=== PATIENT | male | born 1955 | race Caucasian/White ===

== ENCOUNTER 2023-03-27 17:27 | Inpatient (IN) | payer OTHER, SELFPAY ==
[2023-03-27] VITALS (34 sets, daily range): BP systolic 105–138; BP diastolic 48–80; PULSE 67–102; RESP 12–33; TEMP 36.2–36.8; O2SAT 86–100
--- NOTE | 2023-03-27 17:30 | RT.EKG_ITS ---
APPROVED REPORT Exam: Resting ECG Reason for Exam: SOB Patient Location: E HR:84 bpm ECG Measurements Heart Rate 84 AXIS WI 160 P 115 QRSd 87 QRS 88 QT 378 T 67 QTc 447 Conclusion Sinus rhythm...normal P axis, V-rate 60- 99 Repol abnrm suggests ischemia, lateral leads...ST dep, T neg, I aVL V5 V6 Narrow complex normal sinus rhythm at a rate of 84. Normal axis. Intervals within normal limits. N o acute ST segment abnormalities. Artifact in lead III. No prior for comparison. No acute injury p attern.
--- NOTE | 2023-03-27 17:51 | W.ED.GENAD ---
HPI General Stated Complaint: SOB REJI: 3 Date/Time Provider Initiated Documentation: 03/27/23 17:38. HPI Narrative: 68 year-old male presents to ED today by POV/ambulating with a chief complaint of weakness, near syncope, chronic hematuria in known stage IV bladder CA patient with onset of about one week- questions cardiac left arm pain for the past week. [facility]. and they recommended ED evaluation. Quality described as very weak, has needed transfusions when feeling similar in the past, no radiation to overt fever, cough, shortness of breath, does endorse zero appetite without vomiting. Severity is described as severe. Palliating factors include nothing specific attempted. Provoking factors include nothing specific. Events leading up to the incident/Associated Symptoms: patient is in palliative care, is trying to pursue JAK2 inhibitor treatment. Patient not anticoagulated. Related Data Home Medications Medication Instructions Recorded Confirmed benazepril 10 mg tablet 1 tab PO DAILY #90 tab-caps 08/01/13 fluticasone 250 mcg-salmeterol 50 1 puff inhalation BID 08/01/13 mcg/dose blistr powdr for inhalation (Advair Diskus) glipizide 10 mg tablet, extended 1 tab PO BID #180 tab-caps 08/01/13 release 24 hr (Glucotrol XL) niacin 500 mg tablet,extended 1 tab PO HS #90 tab-caps 08/01/13 release 24 hr (Niaspan) simvastatin 10 mg tablet (Zocor) 1 tab PO DAILY #90 tab-caps 08/01/13 tiotropium bromide 18 mcg capsule 18 mcg inhalation DAILY 08/01/13 with inhalation device (Spiriva with HandiHaler) aspirin 325 mg tablet 1 tab PO DAILY #90 tab-caps 08/27/13 ipratropium 20 mcg-albuterol 100 1 puff inhalation QID #1 puff 10/31/13 mcg/actuation mist for inhalation (Combivent Respimat) metformin 850 mg tablet 1 - 2 tab PO DIRECTED #270 12/18/13 (Glucophage) tab-caps sitagliptin phosphate 100 mg 100 mg PO DAILY #30 tabs 02/10/14 tablet (Januvia) metoprolol tartrate 50 mg tablet 0.5 tab PO BID #90 tab-caps 04/23/14 (Lopressor) Allergies Allergy/AdvReac Type Severity Reaction Status Date / Time bupropion Allergy Severe Anaphylaxsi Unverified 08/01/13 15:38 s Review of Systems All systems reviewed & are unremarkable except as noted in HPI and below PFSH All Active Problems (Updated 03/27/23 @ 21:51 by Jonathon Henry) Sepsis syndrome (Acute) Type 2 diabetes mellitus (Chronic) Bladder cancer (Chronic) Hyperlipidemia (Chronic 08/01/12) Essential hypertension (Chronic 01/30/13) Chronic obstructive lung disease (Chronic 01/31/13) Medical History Diverticulitis of colon (08/01/12) Acute pancreatitis (01/31/13) Acute appendicitis (01/31/13) Surgical History Appendectomy Social History Smoking/Tobacco Use Status: Never Smoking risk assessment performed?: Yes Alcohol Intake: current Alcohol Intake frequency: holidays/special occasions only Exam Narrative Exam Narrative: GENERAL APPEARANCE: Malnourished, extremely frail & emaciated, non-toxic, awake and alert, atraumatic, no acute distress. SKIN: Warm, pink, dry, intact, without rashes/lesions/ulcerations. HEAD: Normocephalic, atraumatic, normal hair distribution for gender/age. EYES: Pupils PERRLA, EOMs intact without nystagmus, normal conjunctiva, no exudates on lids/lashes. ENT: Nares patent, no circumoral cyanosis, no facial swelling NECK: Supple, trachea midline, painless cervical ROM. LUNGS/CHEST: Lungs CTA bilaterally- no rhonchi/no rales, coarse lung sounds diffusely, non-labored respirations, normal A/P diameter, symmetrical expansion, no chest wall deformity HEART (CV/PV): Regular rate and rhythm without murmur, no peripheral edema, no JVD. ABDOMEN: Soft, non-distended, no guarding, diffuse mild tenderness- states baseline. MSK: Normal ROM, no swelling/deformity to bilateral UEs or LEs, moving all extremities without weakness, no cyanosis, spine midline without tenderness, normal curvature. NEURO: Mental Status AAOx4 - alert to person, place, time, events No facial droop, no forehead involvement. Motor: No focal weakness - strength 5/5 in bilateral UEs and LEs, proximal and distal, symmetric. Sensory: sensation intact to light touch globally. Gait normal: patient ambulated without ataxia into ED room. PSYCH: euthymic, cooperative, pleasant, appropriate speech Course Vital Signs Vital signs: Vital Signs Pulse 91 H 03/27/23 17:35 Respiratory Rate 28 H 03/27/23 17:35 Blood Pressure 138/78 03/27/23 17:35 Pulse Oximetry 96 03/27/23 17:35 Pulse 91 H 03/27/23 17:35 Respiratory Rate 28 H 03/27/23 17:35 Blood Pressure 138/78 03/27/23 17:35 Blood Pressure Position Sitting 03/27/23 17:35 Pulse Oximetry 96 03/27/23 17:35 Oxygen Delivery Method Room Air 03/27/23 17:35 Oxygen Flow Rate 0 03/27/23 17:35 Pain Level 0 03/27/23 17:35 Medical Decision Making This dictation utilizes [id number] dictation software and may contain unedited grammatical errors. 68 y/o M presents to ED today with a chief complaint of feeling very weak, known stage IV bladder CA, having hematuria, questions need for transfusion. Patient is engaged in palliative care with bladder CA with mets, [facility], feels intensely weak, questions if he is having a heart attack with one week of intermittent L arm pain. Patients' medical history: COPD, bladder CA w/ mets to lung, bone, HTN, t2DM. Family and social history: former heavy smoker, lives with family. Pertinent exam findings / vital signs include frail and emaciated, coarse lung sounds diffusely, baseline abdominal tenderness. Differential / pathologies of concern include sepsis, anemia, pneumonia, UTI, malnutrition. Diagnostic studies of: -CBC, CMP, PT/INR, VBG, lipase, lactate, CK, Trop I, Mg++, PT/PTT, UA, Blood Cx's, CXR. -CBC shows leukocytosis 35 - sepsis -Lactate 4.9, likely sepsis - 3hr lactate value pending at admission. -CMP shows mild hyperkalemia, no EKG changes, glucose 299, chronic elevated LFTs -Lipase neg -CK neg -Trop I neg, reliable onset, no ACS -Coags unremarkable CXR shows no large focal opacity on my read. Interventions of: -500mL IV LR on arrival, switched to 1L NS, IBW sepsis bolus, giving 2gm ceftriaxone, 1.5gm vancomycin for empiric coverage, [facility] - [place] refuses admission or transfer ED to ED even though they may have capacity tomorrow. Refuse waitlisting any patients. -Giving DuoNeb starting 2L O2 by [place] for mild hypoxia in the setting of mild cough and chronic COPD -repleted 2gm Magnesium IV ED Course/Assessment/Plan: 68-year-old male patient was recommended to come to our ER for evaluation, not the [place] ER per phone consult with their transfer service. Meets sepsis criteria, unknown source at this time, UA shows no nitrites or leuk esterase and he does have active bladder cancer, he is trying to seek treatment with Omero 2 inhibitors with our oncology service at some point in the near future. It is possible that he has pneumonia as source, he did display some mild hypoxia in the setting of chronic COPD at 87 on room air, has an active cough, chest x-ray shows no large focal opacity but the read read has not read at time of admission. I did discuss with Dr. Henry for admission here for sepsis which was excepted, the patient displayed no hypotension here in the department and received a breathing treatment, he received ceftriaxone empirically when urine was suspected source of infection as well as vancomycin, this will likely be transition to cefepime inpatient, he had some mild hypomagnesemia which was repleted by IV, he was given a breathing treatment. Patient states he is a FULL CODE. Admission accepted 2144 to [facility] Med-Surg. Disposition of Sepsis. Patient verbalized understanding of the plan and return to ED criteria and engaged in shared decision making. Medical Records Medical records reviewed: Yes I reviewed the patient's medical records. Imaging Data Radiologic Study: Imaging: X-Ray My impression: no focal opacity Radiologist's impression: Exam: XR Chest Exam date and time: 03/27/2023 8:51 PM Age: 68 years old Clinical indication: Other: Sepsis TECHNIQUE: Imaging protocol: Radiologic exam of the chest. Views: 1 view. COMPARISON: No relevant prior studies available. FINDINGS: Lungs: Lungs are hyperinflated compatible with COPD/emphysema. No focal airspace opacity. Pleural spaces: Unremarkable. No pleural effusion. No pneumothorax. Heart/Mediastinum: Unremarkable. No cardiomegaly. Bones/joints: Unremarkable. IMPRESSION: Lungs are hyperinflated compatible with COPD/emphysema. No focal airspace opacity. Dictated and Authenticated by: Sheldon Carvajal MD. Lab Data Lab results reviewed: Yes I reviewed the patient's lab results. Labs: 03/27/23 20:20 Urine - Reflex from Ua Urine Culture - Pending 03/27/23 18:54 Blood Blood Culture - Pending 03/27/23 18:46 Blood Blood Culture - Pending Laboratory Tests Range/Units 03/27/23 03/27/23 18:05 20:20 WBC (4.4-10.8) 10^3/uL 35.49 H* RBC (4.36-5.78) 10^6/uL 3.61 L Hgb (13.5-17.5) g/dL 8.7 L Hct (40.0-50.0) % 26.8 L MCV (80-95) fL 74 L MCH (27.0-33.0) pg 24.1 L MCHC (32.0-36.0) % 32.5 RDW (11.8-14.1) % 21.7 H Plt Count (130-400) 10^3/uL 498 H MPV (8.0-11.0) fL 8.0 Immature Gran % 0.0 Neutrophils % 95.0 Lymphocytes % 2.0 Monocytes % 3.0 Eosinophils % 0.0 Basophils % 0.0 Nucleated RBC % (0.0-0.3) % 0.0 Absolute Neutrophils (1.2-6.7) 10^3/uL 33.72 H Absolute Lymphocytes (1.2-3.4) 10^3/uL 0.71 L Absolute Monocytes (0.1-0.8) 10^3/uL 1.06 H Absolute Eosinophils (0.0-0.7) 10^3/uL 0.00 Absolute Basophils (0.0-0.2) 10^3/uL 0.00 RBC Morphology See Below Hypochromasia 2+ Poikilocytosis 1+ Anisocytosis 1+ Microcytosis 1+ PT (9.1-11.1) sec 11.5 H INR (0.9-1.1) 1.2 H APTT (23.6-32.8) sec 27.4 VBG Lactate (0.6-1.4) mmol/L 4.3 H* Sodium (136-145) mmol/L 128 L Potassium (3.5-5.1) mmol/L 5.2 H Chloride (98-107) mmol/L 92 L Carbon Dioxide (21.0-32.0) mmol/L 24.4 Anion Gap (3-11) mmol/L 11.6 H BUN (7-18) mg/dL 18 Creatinine (0.70-1.30) mg/dL 1.0 Est GFR (CKD-EPI 2020) (mL/min/1.73m2) 82.49 Glucose (74-106) mg/dL 299 H Calcium (8.5-10.1) mg/dL 9.4 Magnesium (1.8-2.4) mg/dL 1.4 L Total Bilirubin (0.2-1.0) mg/dL 0.3 AST (15-37) U/L 14 L ALT (16-63) U/L 18 Alkaline Phosphatase (46-116) U/L 185 H Creatine Kinase (39-308) U/L 44 Troponin I (<or=60) ng/L < 50 Total Protein (6.4-8.2) g/dL 7.4 Albumin (3.4-5.0) g/dL 3.1 L Lipase (16-77) U/L < 10 L Procalcitonin ng/mL < 0.1 Urine Color (Yellow) Red Urine Clarity (Clear) Turbid Urine pH (5-8) 6.5 Ur Specific [place] (1.005-1.025) 1.025 Urine Protein (Negative) mg/dL >=300 H Urine Ketones (Negative) mg/dL Negative Urine Blood (Negative) Large H Urine Nitrite (Negative) Negative Urine Bilirubin (Negative) Negative Urine Urobilinogen (Up to 0.2) mg/dL 0.2 Ur Leukocyte Esterase (Negative) Negative Urine RBC (0-2) HPF >50 H Urine WBC Not Applicable Ur Epithelial Cells Not Applicable Urine Crystals Not Applicable Urine Bacteria Not Applicable Urine Mucus Not Applicable Ur Culture Indicated? Yes Urine Glucose (Negative) mg/dL 100 H Quality:SDOH Health Related Social Needs: No Data to Display Discharge Plan Disposition Patient Disposition: Admit to [facility] Condition: Stable Discharge Details Clinical Impression: Sepsis Primary Care Provider: Lizet Monsalve ED Provider: Benoit Robbins Home Meds and New Rx's Prescriptions: No Action fluticasone propion-salmeterol [Advair Diskus] 1 EACH blister with device 1 puff Inhalation BID tiotropium bromide [Spiriva with HandiHaler] 18 MCG capsule, w/inhalation device 18 mcg Inhalation DAILY glipizide [Glucotrol XL] 10 MG tablet extended release 24hr 1 tab PO BID Qty: 180 simvastatin [Zocor] 10 MG tablet 1 tab PO DAILY Qty: 90 niacin [Niaspan Extended-Release] 500 MG tablet extended release 24 hr 1 tab PO HS Qty: 90 benazepril 10 MG tablet 1 tab PO DAILY Qty: 90 aspirin 325 MG tablet 1 tab PO DAILY Qty: 90 ipratropium-albuterol [Combivent Respimat] 4 GM mist 1 puff Inhalation QID Qty: 1 metformin [Glucophage] 850 MG tablet 1 - 2 tab PO DIRECTED Qty: 270 Rx Instructions: 1 TAB QAM; 2 TABS QPM sitagliptin phosphate [Januvia] 100 MG tablet 100 mg PO DAILY Qty: 30 metoprolol tartrate [Lopressor] 50 MG tablet 0.5 tab PO BID Qty: 90
[2023-03-27 18:12] LABS: Lactate 4.3 mmol/L (0.6-1.4)
[2023-03-27 18:14] LABS: Abs Immature Grans 0.52 10^3/uL (0.0-0.06); HCT 26.8 % (40.0-50.0); HGB 8.7 g/dL (13.5-17.5); MCH 24.1 pg (27.0-33.0); MCHC 32.5 % (32.0-36.0); MCV 74 fL (80-95); Platelet Count 498 10^3/uL (130-400); RBC 3.61 10^6/uL (4.36-5.78); RDW 21.7 % (11.8-14.1); RDW-SD 58.8 fL
[2023-03-27] MEDS: Lactated Ringers 1,000 ML 1000 ML IV (18:15)
[2023-03-27 18:16] LABS: WBC 35.49 10^3/uL (4.4-10.8)
[2023-03-27 18:24] LABS: INR 1.2 (0.9-1.1); PTT Activated 27.4 sec (23.6-32.8); Prothrombin Time 11.5 sec (9.1-11.1)
[2023-03-27 18:28] LABS: ALT 18 U/L (16-63); AST 14 U/L (15-37); Albumin 3.1 g/dL (3.4-5.0); Alkaline Phosphatase 185 U/L (46-116); Anion Gap 11.6 mmol/L (3-11); BUN 18 mg/dL (7-18); Bilirubin, Total 0.3 mg/dL (0.2-1.0); CO2 24.4 mmol/L (21.0-32.0); Calcium 9.4 mg/dL (8.5-10.1); Chloride 92 mmol/L (98-107); Estimated GFR 82.49 (mL/min/1.73m2); Glucose 299 mg/dL (74-106); Magnesium 1.4 mg/dL (1.8-2.4); Potassium 5.2 mmol/L (3.5-5.1); Sodium 128 mmol/L (136-145); Total Protein 7.4 g/dL (6.4-8.2)
[2023-03-27 18:30] LABS: Creatine Kinase 44 U/L (39-308); Lipase < 10 U/L (16-77); Troponin I < 50 ng/L (<or=60)
[2023-03-27 18:31] LABS: Absolute Lymphocyte Count 0.71 10^3/uL (1.2-3.4); Absolute Monocyte Count 1.06 10^3/uL (0.1-0.8); Absolute Neutrophil Count 33.72 10^3/uL (1.2-6.7)
[2023-03-27 18:32] LABS: Diff Comment Diff Reviewed; Hypochromasia 2+; Microcytosis 1+
[2023-03-27 18:33] LABS: Anisocytosis 1+
[2023-03-27 18:34] LABS: Poikilocytes 1+
[2023-03-27] MEDS: cefTRIAXone 2 GM/50 ML BAG IVPB (18:53)
[2023-03-27] MEDS: Normal Saline 1,000 ML 1000 ML IV (19:00)
[2023-03-27] MEDS: MAGNESIUM SULFATE 2 GM/50 ML BAG IVPB (19:27)
[2023-03-27] MEDS: VANCOMYCIN 1,500 MG in Normal Saline 250 ML 166.6666 MG IVPB (19:39)
--- NOTE | 2023-03-27 20:00 | DI.RAD_ITS ---
Exam(s) XR PORTABLE CHEST AP EXAM: XR PORTABLE CHEST AP CLINICAL HISTORY: sepsis. TECHNIQUE: 2D digital imaging was performed. COMPARISON: CR CHEST 2 VIEWS PA,LAT from 05/20/2010 FINDINGS: Single AP portable view. Heart size is upper normal. The mediastinum is not widened. Bilateral hyperinflation-emphysematous changes. No focal infiltrates in the left lung. However, the re is a concerning nodular infiltrate in the right lung base now evident. This measures approximatel y 1 point 5-2 cm size. No pleural effusions. IMPRESSION: COPD. Spiculated nodular infiltrate noted in the right lung base. CT scan follow-up recommended to rule out malignancy. First read by [facility] Final report and recommendation for CT scan called by myself to ER physician 03/28/2023 8:30 a.m. DATA REPOSITORY: RADIATION DOSE DELIVERED:
[2023-03-27] MEDS: Albuterol/Ipratropium 3 ML UPD VIAL UPD (20:23)
[2023-03-27 20:38] LABS: Bilirubin Negative (Negative); Blood Large (Negative); Clarity Turbid (Clear); Glucose 100 mg/dL (Negative); Ketones Negative (Negative); Leukocyte Esterase Negative (Negative); Nitrite Negative (Negative); Specific Gravity 1.025 (1.005-1.025); Urobilinogen 0.2 mg/dL (Up to 0.2); pH 6.5 (5-8)
[2023-03-27 20:48] LABS: C & S Indicated? Yes; RBC >50 HPF (0-2)
[2023-03-27 20:48] LABS: Procalcitonin < 0.1 ng/mL
--- NOTE | 2023-03-27 21:26 | DI.VRAD_ITS ---
PROCEDURE INFORMATION: Exam: XR Chest Exam date and time: 03/27/2023 8:51 PM Age: 68 years old Clinical indication: Other: Sepsis TECHNIQUE: Imaging protocol: Radiologic exam of the chest. Views: 1 view. COMPARISON: No relevant prior studies available. FINDINGS: Lungs: Lungs are hyperinflated compatible with COPD/emphysema. No focal airspace opacity. Pleural spaces: Unremarkable. No pleural effusion. No pneumothorax. Heart/Mediastinum: Unremarkable. No cardiomegaly. Bones/joints: Unremarkable. IMPRESSION: Lungs are hyperinflated compatible with COPD/emphysema. No focal airspace opacity. Dictated and Authenticated by: Sheldon Carvajal MD. Ordering:HERNÁN Laboy MD
--- NOTE | 2023-03-27 21:42 | W.PM.HP.N ---
Date of service: 03/27/23 Time of Service: 21:42 Assessment and Plan Assessment and plan (1) Sepsis syndrome: Start date: 03/27/23 Status: Acute Assessment and plan: This is a 71-year-old gentleman who has had progressive weight loss and decreased intake with severe anorexia and cachexia pending reevaluation of treatment of his bladder cancer which is now metastasized to his lungs. He presents with sepsis syndrome though has had no fever or hypotension he did have severe leukocytosis with lactic acidosis and tachycardia with tachypnea. Probable source of infection would be urinary at this time and is on appropriate antibiotic therapy. He also has been covered for possibility of pneumonia with severe COPD and emphysema. He will receive IV fluid resuscitation with ICU care until stabilized. If MAP falls below 65 we will consider pressor agents. Prognosis is poor but he remains a full code. Palliative care consultation has been placed. (2) Bladder cancer: Status: Chronic Assessment and plan: Stage IV now being metastatic to lung. Patient is considering treatment with local oncology prognosis is poor. He does have chronic hematuria and pain and may have a UTI as cause of sepsis syndrome and presentation cultures have been obtained. This Qualifiers: Bladder location: unspecified site Qualified Code(s): C67.9 - Malignant neoplasm of bladder, unspecified (3) Hyponatremia: Start date: 03/27/23 Status: Acute Assessment and plan: Mild with patient replaced on IV normal saline for hydration as well. He appears dry though his creatinine is normal but this may also be secondary to low muscle mass. (4) Hypomagnesemia: Start date: 03/27/23 Status: Acute Assessment and plan: Patient was given IV magnesium in the ED and will follow-up daily magnesium level with repletion as indicated (5) Microcytic anemia: Status: Chronic Assessment and plan: Patient has acute anemia but not severe though this will be followed up with hydration and if worsening with hematocrit below 20 or hemoglobin below 7, consider transfusion the patient currently on supplements. Patient has not been typed and screened as of yet with this appearing more chronic progressive with his disease processes. Patient persists with iron deficiency with low iron levels despite supplementation but other screening labs were hide to normal. Consider increasing iron supplementation if patient can tolerate oral therapy but has had anorexia. (6) Type 2 diabetes mellitus: Status: Chronic Assessment and plan: Patient will have his outpatient medical therapy help with inpatient before meals and bedtime glucometer measurements and covered with short acting insulin on sliding scale while hospitalized. 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 Qualifiers: COPD type: emphysema Emphysema type: other Qualified Code(s): J43.8 - Other emphysema (8) Essential hypertension: Status: Chronic Assessment and plan: Hold outpatient therapy for now with patient having hypotension and tachycardia as well as being hydrated. Reinitiate as appropriate (9) Hyperlipidemia: Status: Chronic Assessment and plan: Continue statin therapy while hospitalized. Qualifiers: Hyperlipidemia type: mixed hyperlipidemia Qualified Code(s): E78.2 - Mixed hyperlipidemia History of Present Illness History of Present Illness Chief Complaint: Weakness and near syncope with worsening hematuria Narrative: This is a 68-year-old [facility] with [facility] the patient for acute evaluation. He was having weakness with near syncope and gross hematuria which has been persistent since the fall 2022 when he was diagnosed with bladder cancer which now is metastatic to the lung. He has lost almost 60 pounds in the last several months with 15 to 20 pounds more recently. He feels very weak and lives with his daughter now because he cannot do this on his own. He has a smoker quitting in December 2022 after his diagnosis but now returned to smoking. He does have chronic respiratory symptoms which are treated with respiratory inhalers. He is not having increased cough or chest discomfort though he is having left arm pain which was of some concern over the last week as well was cardiac. The ED evaluation did not show any ischemic cardiac processes. The patient does have chronic anemia and has had to have transfusion past. He denies any fever or hemoptysis and has had no GI complaints. Mostly has his urinary complaints with burning and gross hematuria. He denies any new back pain. In the ED the patient was found to have severe leukocytosis also thrombocytosis with tachycardia and tachypnea as well as lactic acidosis but no fever. He also had hyperglycemia with a history of diabetes but had no other metabolic acidosis. VBG showed low normal pCO2. Patient remains a full code and is trying to pursue JAK2 inhibitor treatment with oncology locally. Prognosis appears to be poor the patient is very cachectic appearing and weak. He may wish to rediscuss his CODE STATUS with palliative care which is in consult for later this week but may be able to be accomplished during his hospital stay. For now he is a full code. Review of Systems Narrative: 13 point review of systems otherwise unrevealing or stable. Patient is on a steady decline since his new diagnosis of bladder cancer and now with pulmonary metastases. PFSH All Active Problems (Updated 03/28/23 @ 02:51 by Jonathon Henry) Hypomagnesemia (Acute) Hyponatremia (Acute) Microcytic anemia (Chronic) Sepsis syndrome (Acute) Type 2 diabetes mellitus (Chronic) Bladder cancer (Chronic) Hyperlipidemia (Chronic 08/01/12) Essential hypertension (Chronic 01/30/13) Chronic obstructive lung disease (Chronic 01/31/13) Medical History Diverticulitis of colon (08/01/12) Acute pancreatitis (01/31/13) Acute appendicitis (01/31/13) Surgical History Appendectomy Social History (Updated 03/28/23 @ 02:38 by Jonathon Henry) Smoking/Tobacco Use Status: Current every day Quit status: has quit before Smoking risk assessment performed?: Yes Alcohol Intake: current Alcohol Intake frequency: holidays/special occasions only Housing: house Meds Allergies and Home Medications Allergies Allergy/AdvReac Type Severity Reaction Status Date / Time bupropion Allergy Severe Anaphylaxsi Unverified 03/27/23 22:24 s Home Medications Medication Instructions Recorded Confirmed Type fluticasone 250 mcg-salmeterol 50 1 puff inhalation BID 08/01/13 03/27/23 History mcg/dose blistr powdr for inhalation (Advair Diskus) simvastatin 10 mg tablet (Zocor) 40 mg PO DAILY #90 tab-caps 08/01/13 03/27/23 History tiotropium bromide 18 mcg capsule 18 mcg inhalation DAILY 08/01/13 03/27/23 History with inhalation device (Spiriva with HandiHaler) aspirin 325 mg tablet 1 tab PO DAILY #90 tab-caps 08/27/13 03/27/23 History ipratropium 20 mcg-albuterol 100 1 puff inhalation QID #1 puff 10/31/13 03/27/23 History mcg/actuation mist for inhalation (Combivent Respimat) metformin 850 mg tablet 1,000 mg PO BID #270 tab-caps 12/18/13 03/27/23 History (Glucophage) metoprolol tartrate 50 mg tablet 25 mg PO BID #90 tab-caps 04/23/14 03/27/23 History (Lopressor) amlodipine 5 mg tablet 5 mg PO DAILY 03/27/23 03/27/23 History docusate sodium 100 mg capsule 100 mg PO BID PRN 03/27/23 03/27/23 History (Colace) doxepin 3 mg tablet 3 mg PO QHS 03/27/23 03/27/23 History ferrous sulfate 325 mg (65 mg 325 mg PO .COMPLEX 03/27/23 03/27/23 History iron) tablet (Feosol) insulin aspart U-100 .ROUTE 03/27/23 History melatonin 3 mg tablet 3 mg PO HS PRN 03/27/23 03/27/23 History methylphenidate HCl 5 mg tablet 5 mg PO DAILY 03/27/23 03/27/23 History mirabegron 25 mg tablet,extended 25 mg PO DAILY 03/27/23 03/27/23 History release 24 hr cdnhpmxtcoig-iudvegnc-yljtle 1 tab PO DAILY AM 03/27/23 03/27/23 History nicotine 14 mg/24 hr daily 1 patch transdermal DAILY 03/27/23 03/27/23 History transdermal patch oxycodone 5 mg tablet 5 mg PO Q6H PRN 03/27/23 03/27/23 History pantoprazole 20 mg tablet,delayed 20 mg PO QHS 03/27/23 03/27/23 History release (Protonix) tamsulosin 0.4 mg PO .QD 03/27/23 03/27/23 History Exam Narrative Exam Narrative: General: Patient appears cachectic and older than stated age, he is soft-spoken but able to carry on normal conversation. He is alert and oriented x 3. He is in moderate distress from his weakness and discomfort. HEENT: Normocephalic, eyes with pupils equal react light symmetrically, extraocular movement intact and sclera anicteric. Patient with coarsened features. Oropharynx with dry mucosa and patient is edentulous. Neck: Supple without JVD. Back: Kyphotic with prominent ribs and vertebral bones evident with patient's cachexia. No CVA tenderness. Lungs: Bronchovesicular breath sounds diffusely with marked decreased aeration diffusely with no expiratory rales or rhonchi with poor air. No increased expiratory phase or expiratory wheeze with poor air movement. Heart: Tachycardic rate with regular rhythm. No appreciable murmurs or gallops. Abdomen: Scaphoid contour with no palpable hepatosplenomegaly. No tenderness or guarding. Bowel sounds are decreased with active in all quadrants. Genitalia/rectal: Exam deferred. Extremities: Without clubbing, cyanosis or pitting edema. Fair capillary refill. Diffuse muscle wasting. Joints with osteoarthritic changes. Skin: Pale, warm and dry with decreased turgor. Rough texture and actinic changes over sun exposed areas. Neuro: Cranial nerves II through XII grossly intact, no focalizing motor deficits no the patient appears extremely weak diffusely from his decreased intake and cachexia. No tremor. Psych: Flat affect and depressed mood. Slow monotonous tone to voice. No abnormal thought processes. Remote and recent memory grossly intact. Results Imaging Imaging Studies: Exam: XR Chest Exam date and time: 03/27/2023 8:51 PM Age: 68 years old Clinical indication: Other: Sepsis TECHNIQUE: Imaging protocol: Radiologic exam of the chest. Views: 1 view. COMPARISON: No relevant prior studies available. FINDINGS: Lungs: Lungs are hyperinflated compatible with COPD/emphysema. No focal airspace opacity. Pleural spaces: Unremarkable. No pleural effusion. No pneumothorax. Heart/Mediastinum: Unremarkable. No cardiomegaly. Bones/joints: Unremarkable. IMPRESSION: Lungs are hyperinflated compatible with COPD/emphysema. No focal airspace opacity. Labs 03/27/23 18:05 03/27/23 18:05 Labs: Laboratory Results - last 24 hr 03/27/23 03/27/23 18:05 20:20 WBC 35.49 H* RBC 3.61 L Hgb 8.7 L Hct 26.8 L MCV 74 L MCH 24.1 L MCHC 32.5 RDW 21.7 H Plt Count 498 H MPV 8.0 Immature Gran % 0.0 Neutrophils % 95.0 Lymphocytes % 2.0 Monocytes % 3.0 Eosinophils % 0.0 Basophils % 0.0 Nucleated RBC % 0.0 Absolute Neutrophils 33.72 H Absolute Lymphocytes 0.71 L Absolute Monocytes 1.06 H Absolute Eosinophils 0.00 Absolute Basophils 0.00 RBC Morphology See Below Hypochromasia 2+ Poikilocytosis 1+ Anisocytosis 1+ Microcytosis 1+ PT 11.5 H INR 1.2 H APTT 27.4 VBG Lactate 4.3 H* Sodium 128 L Potassium 5.2 H Chloride 92 L Carbon Dioxide 24.4 Anion Gap 11.6 H BUN 18 Creatinine 1.0 Est GFR (CKD-EPI 2020) 82.49 Glucose 299 H Calcium 9.4 Magnesium 1.4 L Total Bilirubin 0.3 AST 14 L ALT 18 Alkaline Phosphatase 185 H Creatine Kinase 44 Troponin I < 50 Total Protein 7.4 Albumin 3.1 L Lipase < 10 L Procalcitonin < 0.1 Urine Color Red Urine Clarity Turbid Urine pH 6.5 Ur Specific [place] 1.025 Urine Protein >=300 H Urine Ketones Negative Urine Blood Large H Urine Nitrite Negative Urine Bilirubin Negative Urine Urobilinogen 0.2 Ur Leukocyte Esterase Negative Urine RBC >50 H Urine WBC Not Applicable Ur Epithelial Cells Not Applicable Urine Crystals Not Applicable Urine Bacteria Not Applicable Urine Mucus Not Applicable Ur Culture Indicated? Yes Urine Glucose 100 H Last Vital Signs Temp 36.8 C 03/27/23 18:31 Pulse 95 H 03/27/23 18:31 Resp 22 03/27/23 18:31 BP 133/80 03/27/23 18:31 Pulse Ox 98 03/27/23 18:31 Time Spent Time spent with Patient: >75 minutes Time was spent: preparing to see the patient(eg.review tests), obtaining and/or reviewing separately otained hiistory, ordering medications,tests, procedures, referring, communicating with other health pediatric acute care unit nurse, indepentently interpreting results, counseling the patient and care coordination
[2023-03-27 22:54] LABS: BE (Venous) 2 mmol/L (-2-3); HCO3 (Venous) 27 mmol/L (23-28); O2 Sat (Venous) 54 %; TCO2 (Venous) 26 mmol/L (24-29); pCO2 (Venous) 42 mmHg (41-51); pH (Venous) 7.41 (7.31-7.41); pO2 (Venous) 28 mmHg
[2023-03-27 22:56] LABS: Lactate 1.3 mmol/L (0.6-1.4)
--- NOTE | 2023-03-27 23:21 | W.PCEDHO ---
Registration Status: REG ER Primary Language: Preferred Language: Slovenian ED Information & Data Chief Complaint SOB 03/27/23 18:35 Chief Complaint SOB 03/27/23 17:51 Triage Note Pt @ [facility], has bladder 03/27/23 17:35 cancer and has gross bloody urine- has needed blood transfusions in the past for them (last one 1 month ago) , feels weak/SOB and called them- referred here for further workup. Denies chest pain Medical / Surgical History (Last Reviewed 03/27/23 @ 21:48 by Jonathon Henry) Diverticulitis of colon (08/01/12) Acute pancreatitis (01/31/13) Acute appendicitis (01/31/13) (Last Reviewed 03/27/23 @ 21:48 by Jonathon Henry) Appendectomy Most Recent Vital Signs Temperature 36.8 C 03/27/23 18:31 Temperature Source Oral 03/27/23 18:31 Pulse 69 03/27/23 21:45 Pulse 90 03/27/23 21:50 Respiratory Rate 25 H 03/27/23 21:50 Respiratory Effort Normal, Non-Labored 03/27/23 18:35 Respiratory Depth Normal 03/27/23 18:35 Respiratory Pattern Normal 03/27/23 18:35 Blood Pressure 118/57 L 03/27/23 21:45 Blood Pressure Mean 75 03/27/23 21:45 Blood Pressure Position Sitting 03/27/23 17:35 Pulse Oximetry 92 03/27/23 21:50 Oxygen Delivery Method Room Air 03/27/23 18:31 Oxygen Flow Rate 0 03/27/23 18:31 Pain Level 0 03/27/23 17:35 Allergies bupropion Allergy (Severe, Unverified 03/27/23 22:24) Anaphylaxsis IV IV Catheter Type [Right Saline Lock Antecubital] IV Catheter Type [Left Peripheral IV Antecubital] IV Catheter Gauge [Right 20 Antecubital] IV Catheter Gauge [Left 18 Antecubital] Diet Orders Category Date Time Status Diabetes Consistent CHO/Heart Healthy [DIET] Nutrition 03/28/23 Breakfast Ordered Diagnostics 03/27/23 03/27/23 03/27/23 Range/Units 22:51 20:20 18:05 WBC 35.49 H* (4.4-10.8) 10^3/uL RBC 3.61 L (4.36-5.78) 10^6/uL Hgb 8.7 L (13.5-17.5) g/dL Hct 26.8 L (40.0-50.0) % MCV 74 L (80-95) fL MCH 24.1 L (27.0-33.0) pg MCHC 32.5 (32.0-36.0) % RDW 21.7 H (11.8-14.1) % Plt Count 498 H (130-400) 10^3/uL MPV 8.0 (8.0-11.0) fL Immature Gran % 0.0 Neutrophils % 95.0 Lymphocytes % 2.0 Monocytes % 3.0 Eosinophils % 0.0 Basophils % 0.0 Nucleated RBC % 0.0 (0.0-0.3) % Absolute Neutrophils 33.72 H (1.2-6.7) 10^3/uL Absolute Lymphocytes 0.71 L (1.2-3.4) 10^3/uL Absolute Monocytes 1.06 H (0.1-0.8) 10^3/uL Absolute Eosinophils 0.00 (0.0-0.7) 10^3/uL Absolute Basophils 0.00 (0.0-0.2) 10^3/uL RBC Morphology See Below Hypochromasia 2+ Poikilocytosis 1+ Anisocytosis 1+ Microcytosis 1+ PT 11.5 H (9.1-11.1) sec INR 1.2 H (0.9-1.1) APTT 27.4 (23.6-32.8) sec VBG pH 7.41 (7.31-7.41) VBG pCO2 42 (41-51) mmHg VBG pO2 28 mmHg VBG HCO3 27 (23-28) mmol/L VBG Total CO2 26 (24-29) mmol/L VBG O2 Saturation 54 % VBG Base Excess 2 (-2-3) mmol/L VBG Lactate 1.3 4.3 H* (0.6-1.4) mmol/L Sodium 128 L (136-145) mmol/L Potassium 5.2 H (3.5-5.1) mmol/L Chloride 92 L (98-107) mmol/L Carbon Dioxide 24.4 (21.0-32.0) mmol/L Anion Gap 11.6 H (3-11) mmol/L BUN 18 (7-18) mg/dL Creatinine 1.0 (0.70-1.30) mg/dL Est GFR (CKD-EPI 2020) 82.49 (mL/min/1.73m2) Glucose 299 H (74-106) mg/dL Calcium 9.4 (8.5-10.1) mg/dL Magnesium 1.4 L (1.8-2.4) mg/dL Iron Pending Ferritin Pending Total Bilirubin 0.3 (0.2-1.0) mg/dL AST 14 L (15-37) U/L ALT 18 (16-63) U/L Alkaline Phosphatase 185 H (46-116) U/L Creatine Kinase 44 (39-308) U/L Troponin I < 50 (<or=60) ng/L Total Protein 7.4 (6.4-8.2) g/dL Albumin 3.1 L (3.4-5.0) g/dL Lipase < 10 L (16-77) U/L Vitamin B12 Pending Folate Pending Procalcitonin < 0.1 ng/mL Urine Color Red (Yellow) Urine Clarity Turbid (Clear) Urine pH 6.5 (5-8) Ur Specific [place] 1.025 (1.005-1.025) Urine Protein >=300 H (Negative) mg/dL Urine Ketones Negative (Negative) mg/dL Urine Blood Large H (Negative) Urine Nitrite Negative (Negative) Urine Bilirubin Negative (Negative) Urine Urobilinogen 0.2 (Up to 0.2) mg/dL Ur Leukocyte Esterase Negative (Negative) Urine RBC >50 H (0-2) HPF Urine WBC Not Applicable Ur Epithelial Cells Not Applicable Urine Crystals Not Applicable Urine Bacteria Not Applicable Urine Mucus Not Applicable Ur Culture Indicated? Yes Urine Glucose 100 H (Negative) mg/dL 03/27/23 20:20 Urine Culture - Pending Urine - Reflex from Ua 03/27/23 18:54 Blood Culture - Pending Blood 03/27/23 18:46 Blood Culture - Pending Blood [id number] Documentation Fingerstick Glucose Start: 03/27/23 20:06 Freq: .Q6H Status: Complete Protocol: Activity Type Activity Date Activity User E-sign Co-sign Detail Recorded Client Recorded Date Recorded By Document 03/27/23 20:16 CR [id number] 03/27/23 20:16 CR Intake and Output - 24 Hour Total 03/27/23 17:27 thru 03/27/23 18:55 Intake Total 510 Balance 510 Weight 47.627 kg Intake: IV 510 Falls Risk Assessment History of Falls No History 03/27/23 18:35 Ambulatory Aids Independent 03/27/23 18:35 Tubes/Lines None 03/27/23 18:35 Gait Evaluation No gait disturbance 03/27/23 18:35 Cognition No cognitive impairment 03/27/23 18:35 Fall Total Score 0 03/27/23 18:35 Level of Risk Standard/Low Risk 03/27/23 18:35 Problems (Last Reviewed 03/27/23 @ 21:48 by Jonathon Henry) Microcytic anemia (Chronic) Sepsis syndrome (Acute) Type 2 diabetes mellitus (Chronic) Bladder cancer (Chronic) Hyperlipidemia (Chronic 08/01/12) Essential hypertension (Chronic 01/30/13) Chronic obstructive lung disease (Chronic 01/31/13) v v v v v v v v v Sending and/or Receiving Nurses: Please use comment section below to note any information pertinent to the patient hand-off not included above. Information / Comments: Report received from:Summer Restrepo RN
[2023-03-27 23:27] LABS: Iron 12 ug/dL (65-175)
[2023-03-27 23:41] LABS: Ferritin 169 ng/mL (26-388)
[2023-03-27 23:55] LABS: Folate > 20.0 ng/mL (8.6-20.0); Vitamin B12 1680 pg/mL (193-986)
[2023-03-28] VITALS (212 sets, daily range): BP systolic 110–146; BP diastolic 60–76; PULSE 61–114; RESP 2–47; TEMP 36.1–37.3; O2SAT 84–100
--- NOTE | 2023-03-28 | DI.US_ITS ---
Exam(s) US RENAL EXAM: US RENAL CLINICAL HISTORY: hematuria TECHNIQUE: Ultrasound of both kidneys performed using standard protocol. COMPARISON: CR,XR XR PORTABLE CHEST AP from 03/27/2023 FINDINGS: RIGHT KIDNEY: Measures 10.5 cm in length. There is a small 1.5 cm benign cyst. Normal cortical thickness and corti comedullary differentiation .No solid masses There is a small 3 millimeter hyperechoic focus in the superior pole region which may be a small calc ulus. No hydronephrosis on this side. LEFT KIDNEY: Measures 11.7 cm in length. There is moderate-unilateral left-sided hydronephrosis. This is related to large neoplastic mass in left side of the bladder as discussed below. There is a benign cyst in the left kidney measuring 1.8 x 1.7 cm. No solid mass in the kidney. URINARY BLADDER: Prevoid volume is 325 cc There is a large mass in left side of the urinary bladder measuring at least 6 x 6 cm and the causing obstruction of the left ureter. Ureterovesical jets: The left ureterovesical jet was not identified due to the obstructing mass. The right ureterovesical jet was identified. IMPRESSION: 1. There is significant unilateral left-sided hydronephrosis and hydroureter due to a large malignan t-appearing mass in the left side of the urinary bladder which is obstructing the left UVJ. 2. Small amount of free fluid is noted in Morison's pouch between the right kidney and the liver. CT scan of the chest abdomen pelvis is recommended. I note that this patient has a nodular density i n the right lung base seen on chest x-ray performed yesterday. DATA REPOSITORY:
[2023-03-28] MEDS: Normal Saline 500 ML 30 ML IV (02:16)
[2023-03-28] MEDS: CEFEPIME 2 GM in Normal Saline 100 ML IVPB ×2 (02:16→14:04)
[2023-03-28] MEDS: Normal Saline Flush 10 ML SYR IVP ×4 (02:17→21:05)
[2023-03-28] MEDS: Acetaminophen 325 MG TAB 650 MG PO (02:39)
[2023-03-28 05:41] LABS: HCT 21.7 % (40.0-50.0); HGB 7.1 g/dL (13.5-17.5); MCH 24.1 pg (27.0-33.0); MCHC 32.7 % (32.0-36.0); MCV 74 fL (80-95); MPV 8.2 fL (8.0-11.0); Platelet Count 416 10^3/uL (130-400); RDW 21.5 % (11.8-14.1); RDW-SD 57.6 fL
[2023-03-28 05:48] LABS: WBC 29.89 10^3/uL (4.4-10.8)
[2023-03-28 05:59] LABS: ALT 13 U/L (16-63); AST 13 U/L (15-37); Albumin 2.6 g/dL (3.4-5.0); Alkaline Phosphatase 161 U/L (46-116); Anion Gap 8.5 mmol/L (3-11); BUN 15 mg/dL (7-18); Bilirubin, Total 0.2 mg/dL (0.2-1.0); CO2 24.5 mmol/L (21.0-32.0); CREATININE 0.8 mg/dL (0.70-1.30); Calcium 8.7 mg/dL (8.5-10.1); Chloride 96 mmol/L (98-107); Glucose 244 mg/dL (74-106); Magnesium 1.6 mg/dL (1.8-2.4); Potassium 4.4 mmol/L (3.5-5.1); Sodium 129 mmol/L (136-145); Total Protein 6.2 g/dL (6.4-8.2)
[2023-03-28 06:05] LABS: INR 1.1 (0.9-1.1); Prothrombin Time 10.9 sec (9.1-11.1)
[2023-03-28 06:20] LABS: Vancomycin, Random 12.4 ug/mL
[2023-03-28 06:28] LABS: RBC 2.95 10^6/uL (4.36-5.78)
[2023-03-28] MEDS: Budesonide/Formoterol 160/4.5 6 GM 60 PUFF INH IH ×2 (08:13→19:53)
[2023-03-28] MEDS: Ipratropium/Albuterol 4 GM 120 PUFF INH IH ×4 (08:13→19:53)
--- NOTE | 2023-03-28 08:34 | W.ED.FU ---
Date of service: 03/28/23 Time of Service: 08:35 Follow Up Plan: radiologist reading today called and advised vrad missed on patient's cxr a spiculated mass that will need a f/u CT at some point, patient currently admitted to the hospitalist, information relayed to them for f/u imaging
--- NOTE | 2023-03-28 08:45 | PDOC.CMIN ---
Date of service: 03/28/23 Time of Service: 08:46 Care Management Initial Assmt Initial Assessment REASON FOR HOSPITALIZATION:: sepsis PREVIOUS FUNCTIONAL STATUS/SOCIAL/FAMILY SUPPORTS:: Jesus lives in [place] with his daughter Maricarmen. He relocated to [place] from [place] in December. He has 2 other children who do not live in the area. Sae is retired from a career in [employer]. He is independent at baseline and does not receive any community services. CURRENT FUNCTIONAL STATUS:: Sae was lying in bed when CM met with him. He was polite but very terse in his responses, giving one word answers to most questions. Sae did inform CM that he would be amenable to having home health services when discharged. He shared that his walking is becoming more unsteady and believes he may benefit from PT. ADVANCE DIRECTIVES:: none on file Has patient been provided with info about the portal/API?: Yes Did the patient sign up for the portal?: No CODE STATUS:: Full Code INSURANCE COVERAGE / FINANCIAL ISSUES:: [place] CURRENT HOME/COMMUNITY SERVICES/EQUIPMENT:: none PRIMARY CARE PHYSICIAN:: Lizet Monsalve POTENTIAL DISCHARGE NEEDS:: follow up with PCP, Oncology and plan of care PATIENT/FAMILY EDUCATION NEEDS:: Review of discharge instructions, activity, limitations, follow up plan, discuss Ask Me [employer] TRANSPORTATION:: via private vehicle PLAN:: Anticipate Jesus will be discharged home, possibly with new home health services for RN,PT, and OT. He will follow up with his community providers and plan of care and transport with family. CM will follow and assess for discharge needs. PFSH All Active Problems (Updated 03/28/23 @ 15:39 by Arlyn Lees MD) Discharge planning issues (Acute) DVT prophylaxis (Acute) Hydronephrosis, left (Acute) Hematuria (Acute) Acute exacerbation of chronic obstructive pulmonary disease (COPD) (Acute) Hypomagnesemia (Acute) Hyponatremia (Acute) Microcytic anemia (Chronic) Sepsis syndrome (Acute) Type 2 diabetes mellitus (Chronic) Bladder cancer (Chronic) Hyperlipidemia (Chronic 08/01/12) Essential hypertension (Chronic 01/30/13) Chronic obstructive lung disease (Chronic 01/31/13) Medical History Diverticulitis of colon (08/01/12) Acute pancreatitis (01/31/13) Acute appendicitis (01/31/13) Surgical History Appendectomy Social History (Updated 03/28/23 @ 02:38 by Jonathon Henry) Smoking/Tobacco Use Status: Current every day Quit status: has quit before Smoking risk assessment performed?: Yes Alcohol Intake: current Alcohol Intake frequency: holidays/special occasions only Housing: house SDOH(Care Management) Screening Will the Patient Participate in the Screening?: Yes Do you worry about having a steady place to live?: no Problems where you live: no known problems In the past 12 months, have you had to go without electric, gas, oil or water in your home?: no Have you or anyone in your house had to go without enough food to eat?: no Has lack of transportation kept you from medical appointments or from doing things needed for daily living?: no Has anyone in your support network made you feel unsafe for any reason?: no Health Related Social Needs Health related social needs details: Patient resides in [place], Is in [place] living with his daughter while undergoing treatment for Bladder Cancer.
[2023-03-28] MEDS: MAGNESIUM SULFATE 2 GM/50 ML BAG IVPB (08:47)
[2023-03-28] MEDS: Nicotine 14 MG/24 HR PATCH TD (08:48)
[2023-03-28] MEDS: Mirabegron 25 MG TABCR PO (08:49)
[2023-03-28] MEDS: Tamsulosin 0.4 MG CAPCR PO (08:49)
[2023-03-28] MEDS: Simvastatin 10 MG TAB PO (08:49)
[2023-03-28] MEDS: Ferrous Sulfate 325 MG TAB PO ×2 (08:50→19:36)
[2023-03-28] MEDS: Multivitamin w/Minerals TAB 1 TAB PO (08:50)
[2023-03-28] MEDS: Methylphenidate 10 MG TAB 5 MG PO (08:51)
[2023-03-28] MEDS: VANCOMYCIN 500 MG in Normal Saline 100 ML 100 MG IVPB ×2 (08:52→19:42)
[2023-03-28] MEDS: Normal Saline 1,000 ML 150 ML IV (08:53)
[2023-03-28] MEDS: Insulin Aspart 300 UNITS/3 ML PEN SC ×4 (08:58→20:52)
[2023-03-28] MEDS: Metoprolol 12.5 MG TAB PO ×2 (09:17→19:35)
[2023-03-28] MEDS: diphenhydrAMINE 25 MG CAP PO (10:54)
--- NOTE | 2023-03-28 11:45 | PHA.REVIEW2 ---
Pharmacy Admission Review Admission Clinical Review Admission Pharmacy Review: (Updated 03/28/23 @ 02:51 by Jonathon Henry) Hypomagnesemia (Acute) Hyponatremia (Acute) Sepsis syndrome (Acute) bupropion Allergy (Severe, Unverified 03/27/23 22:24) Anaphylaxsis Resuscitation Status Full Code Height 5 ft 9 in Weight 44.8 kg Pharmacy Admission Review Renal Dosing Renal Dosing: BUN 15 mg/dL (7-18) 03/28/23 05:30 Creatinine 0.8 mg/dL (0.70-1.30) 03/28/23 05:30 Medications needing adjustments: Intervened (CrCl 45.4 mL/min) List of meds needing interventions: Cefepime was changed to every 12 hours Anticoagulation Anticoagulation: Hgb 7.1 g/dL (13.5-17.5) L 03/28/23 05:30 Hct 21.7 % (40.0-50.0) L 03/28/23 05:30 Plt Count 416 10^3/uL (130-400) H 03/28/23 05:30 INR 1.1 (0.9-1.1) 03/28/23 05:30 Creatinine 0.8 mg/dL (0.70-1.30) 03/28/23 05:30 DVT Prophylaxis: Reviewed Medications: Heparin (on hold) Opiate Usage Evaluate Pain Scale/Pains Meds: Reviewed (PRN oxycodone) Scheduled Bowel Reg ordered if on Opiates?: No (PRN miralax/docusate) Relevant Labs Relevant Labs: Sodium 129 mmol/L (136-145) L 03/28/23 05:30 Potassium 4.4 mmol/L (3.5-5.1) 03/28/23 05:30 Chloride 96 mmol/L (98-107) L 03/28/23 05:30 Magnesium 1.6 mg/dL (1.8-2.4) L 03/28/23 05:30 Electrolytes, C-Reactive P, ESR: Reviewed (Na 129, Mg 1.6) DM Control DM Control: Glucose 244 mg/dL (74-106) H 03/28/23 05:30 Finger Stick Blood Glucose 200 1142 Finger Stick Blood Glucose 200 1142 Finger Stick Blood Glucose 211 0806 Finger Stick Blood Glucose 211 0806 DM Control: Reviewed Insulin Dosing, Diabetic Medication: Has order for SS insulin, patients at home metformin currently on hold per H+P Cardiac Review Cardiac Review: Troponin I < 50 ng/L (<or=60) 03/27/23 18:05 BP, HR, EF%: Reviewed (WNL, RR 27 at 1128) QTc Review QTc: Reviewed (447 03/27/23) IV to PO Switch IV Medications: Reviewed Home Meds Home Med List reviewed: Reviewed Relevent Home Meds Not ordered & why?: Amlodipine and metformin on hold per H+P, all other home meds ordered Current Meds Current Medication Order Review: Reviewed Pharmacy Antibiotic Review Relevant Labs: Relevant Labs 03/27/23 18:05 Procalcitonin < 0.1 Pharmacy Antibiotic Activity: C/S review and Reviewed, no change Comments: Current regimen of cefepime 2g q12h and vanco 500mg q12h. Estimated vanco AUC/trough 449/15.1. No order currently for vanco levels, will add for trough level today at 1900 per protocol. Bllood and urine cultures pending. WBC decreased to 29.89 from 35.49.
[2023-03-28] MEDS: oxyCODONE 5 MG TAB PO ×2 (14:45→20:02)
--- NOTE | 2023-03-28 15:03 | W.PM.PROGNOT ---
Date of Service Date of service: 03/28/23 Time of Service: 15:03 Assessment and Plan Assessment and plan (1) Sepsis syndrome: Start date: 03/27/23 Status: Acute Assessment and plan: The source is not very clear. Procalcitonin was negative. However, the patient is clearly responding to antibiotics as evidenced by the improving leucocytosis, and gram negative processes frequently not causing a procalcitonin elevation. Obstructive uropathy on the left due to bladder cancer could mask a septic process above the level of obstruction. There is no clear pneumonia, though the patient has a clear exacerbation of COPD. Continue empiric antibiotics (vancomycin, cefepime). Add atypical coverage. Await urology consult. Await blood cultures. (2) Acute exacerbation of chronic obstructive pulmonary disease (COPD): Status: Acute Assessment and plan: Add scheduled + prn nebs, prednisone, IS/acapella. Continue symbicort. Add mucinex. Collect a sputum cx. No evidence of PNA on CXR, but does appear to have acute bronchitis. (3) Bladder cancer: Status: Chronic Assessment and plan: Stage IV, metastatic to lymph nodes, lung, bones. With hematuria. Urology is consulted. The patient was awaiting his first appointment with [facility] oncology tomorrow. He already has a referral to palliative care at the [facility]. Palliative care has been consulted in the hospital as well. Qualifiers: Bladder location: unspecified site Qualified Code(s): C67.9 - Malignant neoplasm of bladder, unspecified (4) Hematuria: Status: Acute Assessment and plan: In setting of known bladder cancer. See above (5) Hydronephrosis, left: Status: Acute Assessment and plan: In setting of known bladder cancer. C/s urology. ?Need for cysto/potential stent vs nephrostomy. (6) Hyponatremia: Start date: 03/27/23 Status: Acute Assessment and plan: Change IVF to LR at 75 cc/hr. (7) Hypomagnesemia: Start date: 03/27/23 Status: Acute Assessment and plan: Replete, recheck in am (8) Microcytic anemia: Status: Chronic Assessment and plan: S/p transfusion 1 unit pRBCs. Recheck H/H (9) Type 2 diabetes mellitus: Status: Chronic Assessment and plan: Anticipate steroid-induced hyperglycemia. Start long acting insulin. Continue SSI. Qualifiers: Diabetes mellitus [employer] insulin use: without [facility] use Diabetes mellitus complication status: with other specified complication Qualified Code(s): E11.69 - Type 2 diabetes mellitus with other specified complication (10) Essential hypertension: Status: Chronic Assessment and plan: Continue to hold outpatient therapy (11) Hyperlipidemia: Status: Chronic Assessment and plan: Continue statin Qualifiers: Hyperlipidemia type: mixed hyperlipidemia Qualified Code(s): E78.2 - Mixed hyperlipidemia (12) DVT prophylaxis: Status: Acute Assessment and plan: SCDs Avoid chemical DVT ppx in setting of hematuria (13) Discharge planning issues: Status: Acute Assessment and plan: Full code Continues to require hospitalization. Downgrade from the ICU to the medical surgical level of care. Subjective Subjective Interval history since last seen: Mr Johnson reports a pain in his neck as well as his pubic area. He says these pains are chronic and that oxycodone usually helps. He denies dizziness, though endorses feeling shaky. Denies CP. Does feel SOB. Endorses a wet cough but has difficulty bringing up secretions. Denies n/v. He is saturating 95% on RA. He did say that supplemental O2 make him feel more comfortable. He states he is supposed to have a [facility] appointment tomorrow and [facility] Exam Narrative Exam Narrative: General: A very pleasant middle-aged male who appears to be uncomfortable in bed, A&Ox3, pursed lip breathing HEENT: EOMI, MMM Heart: RRR with occasional extra beats, no m/r/g Lungs: diminished breath sounds B Abdomen: soft, tender suprapubically, nondistended Extremities: no edema BLEs Objective Last Vital Signs Temp 37.3 C 03/28/23 13:58 Pulse 67 03/28/23 14:00 Resp 27 H 03/28/23 14:00 BP 125/68 03/28/23 14:00 Pulse Ox 94 03/28/23 14:00 Laboratory Results - last 24 hr 03/27/23 03/27/23 03/27/23 18:05 20:20 22:51 WBC 35.49 H* RBC 3.61 L Hgb 8.7 L Hct 26.8 L MCV 74 L MCH 24.1 L MCHC 32.5 RDW 21.7 H Plt Count 498 H MPV 8.0 Immature Gran % 0.0 Neutrophils % 95.0 Lymphocytes % 2.0 Monocytes % 3.0 Eosinophils % 0.0 Basophils % 0.0 Nucleated RBC % 0.0 Absolute Neutrophils 33.72 H Absolute Lymphocytes 0.71 L Absolute Monocytes 1.06 H Absolute Eosinophils 0.00 Absolute Basophils 0.00 RBC Morphology See Below Hypochromasia 2+ Poikilocytosis 1+ Anisocytosis 1+ Microcytosis 1+ PT 11.5 H INR 1.2 H APTT 27.4 VBG pH 7.41 VBG pCO2 42 VBG pO2 28 VBG HCO3 27 VBG Total CO2 26 VBG O2 Saturation 54 VBG Base Excess 2 VBG Lactate 4.3 H* 1.3 Sodium 128 L Potassium 5.2 H Chloride 92 L Carbon Dioxide 24.4 Anion Gap 11.6 H BUN 18 Creatinine 1.0 Est GFR (CKD-EPI 2020) 82.49 Glucose 299 H Calcium 9.4 Magnesium 1.4 L Iron 12 L Ferritin 169 Total Bilirubin 0.3 AST 14 L ALT 18 Alkaline Phosphatase 185 H Creatine Kinase 44 Troponin I < 50 Total Protein 7.4 Albumin 3.1 L Lipase < 10 L Vitamin B12 1680 H Folate > 20.0 H Procalcitonin < 0.1 Urine Color Red Urine Clarity Turbid Urine pH 6.5 Ur Specific [place] 1.025 Urine Protein >=300 H Urine Ketones Negative Urine Blood Large H Urine Nitrite Negative Urine Bilirubin Negative Urine Urobilinogen 0.2 Ur Leukocyte Esterase Negative Urine RBC >50 H Urine WBC Not Applicable Ur Epithelial Cells Not Applicable Urine Crystals Not Applicable Urine Bacteria Not Applicable Urine Mucus Not Applicable Ur Culture Indicated? Yes Urine Glucose 100 H Random Vancomycin Add-On Test Request Patient ABO/Rh Antibody Screen Crossmatch 03/28/23 03/28/23 03/28/23 05:30 07:39 07:55 WBC 29.89 H* RBC 2.95 L Hgb 7.1 L Hct 21.7 L MCV 74 L MCH 24.1 L MCHC 32.7 RDW 21.5 H Plt Count 416 H MPV 8.2 Immature Gran % Neutrophils % Lymphocytes % Monocytes % Eosinophils % Basophils % Nucleated RBC % Absolute Neutrophils Absolute Lymphocytes Absolute Monocytes Absolute Eosinophils Absolute Basophils RBC Morphology Hypochromasia Poikilocytosis Anisocytosis Microcytosis PT 10.9 INR 1.1 APTT VBG pH VBG pCO2 VBG pO2 VBG HCO3 VBG Total CO2 VBG O2 Saturation VBG Base Excess VBG Lactate 2.0 H Sodium 129 L Potassium 4.4 Chloride 96 L Carbon Dioxide 24.5 Anion Gap 8.5 BUN 15 Creatinine 0.8 Est GFR (CKD-EPI 2020) 97.00 Glucose 244 H Calcium 8.7 Magnesium 1.6 L Iron Ferritin Total Bilirubin 0.2 AST 13 L ALT 13 L Alkaline Phosphatase 161 H Creatine Kinase Troponin I Total Protein 6.2 L Albumin 2.6 L Lipase Vitamin B12 Folate Procalcitonin Urine Color Urine Clarity Urine pH Ur Specific [place] Urine Protein Urine Ketones Urine Blood Urine Nitrite Urine Bilirubin Urine Urobilinogen Ur Leukocyte Esterase Urine RBC Urine WBC Ur Epithelial Cells Urine Crystals Urine Bacteria Urine Mucus Ur Culture Indicated? Urine Glucose Random Vancomycin 12.4 Add-On Test Request Patient ABO/Rh Cancelled B Positive Antibody Screen Cancelled NEGATIVE Crossmatch See Detail See Detail 03/28/23 Unknown WBC RBC Hgb Hct MCV MCH MCHC RDW Plt Count MPV Immature Gran % Neutrophils % Lymphocytes % Monocytes % Eosinophils % Basophils % Nucleated RBC % Absolute Neutrophils Absolute Lymphocytes Absolute Monocytes Absolute Eosinophils Absolute Basophils RBC Morphology Hypochromasia Poikilocytosis Anisocytosis Microcytosis PT INR APTT VBG pH VBG pCO2 VBG pO2 VBG HCO3 VBG Total CO2 VBG O2 Saturation VBG Base Excess VBG Lactate Sodium Potassium Chloride Carbon Dioxide Anion Gap BUN Creatinine Est GFR (CKD-EPI 2020) Glucose Calcium Magnesium Iron Ferritin Total Bilirubin AST ALT Alkaline Phosphatase Creatine Kinase Troponin I Total Protein Albumin Lipase Vitamin B12 Folate Procalcitonin Urine Color Urine Clarity Urine pH Ur Specific [place] Urine Protein Urine Ketones Urine Blood Urine Nitrite Urine Bilirubin Urine Urobilinogen Ur Leukocyte Esterase Urine RBC Urine WBC Ur Epithelial Cells Urine Crystals Urine Bacteria Urine Mucus Ur Culture Indicated? Urine Glucose Random Vancomycin Add-On Test Request Cancelled Patient ABO/Rh Antibody Screen Crossmatch Objective Narrative Objective Narrative: US renal: 1. There is significant unilateral left-sided hydronephrosis and hydroureter due to a large malignant-appearing mass in the left side of the urinary bladder which is obstructing the left UVJ. 2. Small amount of free fluid is noted in Morison's pouch between the right kidney and the liver. CT scan of the chest abdomen pelvis is recommended. I note that this patient has a nodular density in the right lung base seen on chest x-ray performed yesterday. CXR: COPD. Spiculated nodular infiltrate noted in the right lung base. CT scan follow-up recommended to rule out malignancy. Time Spent with Patient Time Spent with Patient: 35-49 minutes Time was spent: preparing to see the patient(eg.review tests), obtaining and/or reviewing separately otained hiistory, ordering medications,tests, procedures, referring, communicating with other health congregational care pastor, indepentently interpreting results, counseling the patient and care coordination
[2023-03-28] MEDS: predniSONE 20 MG TAB 40 MG PO (15:18)
--- NOTE | 2023-03-28 15:18 | UCONE_ITS ---
Date of service: 03/30/23 Time of Service: 17:16 Assessment and Plan Assessment and plan (1) Bladder cancer: Status: Chronic Assessment and plan: His bladder cancer has already been worked up and referrals have been made to both medical and radiation oncology. The patient indicates that there have been some discussions regarding radical cystectomy which he declined. Qualifiers: Bladder location: unspecified site Qualified Code(s): C67.9 - Malignant neoplasm of bladder, unspecified (2) Hydronephrosis, left: Status: Acute Assessment and plan: The patient initially indicated that he had no interest in a nephrostomy tube unless it would somehow impact his treatment or survival. If he has an infected kidney and the kidney is completely obstructed by the presence of his tumor, there is a theoretical benefit that his sepsis might not improve unless a drainage procedure is done. With muscle invasive bladder cancer, we are not likely to be able to place a ureteral stent in a retrograde manner. A nephrostomy tube would be needed. If a nephrostomy tube is placed, we certainly could obtain an aspirate from the left kidney at the time of placement and send the fluid for culture and sensitivity. If an infection is identified and successfully treated, he could then meet with both medical oncology and radiation oncology to discuss his options. If no infection is identified on the aspirate, I could certainly remove the nephrostomy tube without requiring a trip back down to interventional radiology. Also, if an infection is identified and successfully treated but he is not a candidate for treatments by medical oncology and radiation oncology, I could also remove the nephrostomy tube. The patient indicates that he sees the rationale to this approach. I also spoke to the patient's sister who indicates that she would like to see the procedure done sooner than later. The patient however indicates that he might like to wait a few days more to see if there is any change from persistent antibiotics. History of Present Illness History of Present Illness Chief Complaint: Left hydronephrosis Narrative: This is a 68-year-old gentleman who is under the care of the urology team at the [facility] in [place]. I do not have access to his records, but his history is obtained from the patient, his sister and from records I can see in the [facility] EMR. He has some records in [facility] because of a recent referral to medical oncology and radiation oncology. [facility] He had a CT of the chest, abdomen and pelvis. He was identified as having a lung mass, left hydronephrosis and a large bladder mass. He underwent transurethral resection of the bladder mass on February 13, so surgical pathology should be available. He has since had a staging CT PET scan. The patient tells me that he has had discussions with the providers there at the [place] regarding placement of a nephrostomy tube. He elected not to have a tube placed as he did not see how it would impact his treatment or survival. He was referred to medical and radiation oncology here at the [facility]. These referrals have not been accomplished as he is currently admitted with sepsis syndrome. So far, a source of sepsis has not been definitively found. His white blood count has remained elevated and in fact has increased in spite of broad-spectrum antibiotics. His lactate was elevated at the time of admission. [facility] All Active Problems (Updated 03/30/23 @ 17:00 by Ho Broderick MD) Leukocytosis, unspecified (Acute) Malignant neoplasm metastatic from bladder (Acute) Discharge planning issues (Acute) DVT prophylaxis (Acute) Hydronephrosis, left (Acute) Hematuria (Acute) Acute exacerbation of chronic obstructive pulmonary disease (COPD) (Acute) Hypomagnesemia (Acute) Hyponatremia (Acute) Microcytic anemia (Chronic) Sepsis syndrome (Acute) Type 2 diabetes mellitus (Chronic) Bladder cancer (Chronic) Hyperlipidemia (Chronic 08/01/12) Essential hypertension (Chronic 01/30/13) Chronic obstructive lung disease (Chronic 01/31/13) Medical History (Updated 03/30/23 @ 17:00 by Ho Broderick MD) Diverticulitis of colon (08/01/12) Acute pancreatitis (01/31/13) Acute appendicitis (01/31/13) Surgical History (Updated 03/30/23 @ 16:47 by Ho Broderick MD) H/O resection of small bowel twice for SBO Appendectomy Social History (Updated 03/28/23 @ 02:38 by Jonathon Henry) Smoking/Tobacco Use Status: Current every day Quit status: has quit before Smoking risk assessment performed?: Yes Alcohol Intake: current Alcohol Intake frequency: holidays/special occasions only Housing: house Exam Narrative Exam Narrative: He is a thin, frail appearing gentleman. He appears chronically ill His vital signs are documented elsewhere His abdomen is soft with no peritoneal signs He is awake and alert Results Last Vital Signs Temp 37.2 C 03/28/23 14:57 Pulse 67 03/28/23 14:00 Resp 27 H 03/28/23 14:00 BP 125/68 03/28/23 14:00 Pulse Ox 95 03/28/23 14:57 Labs 03/30/23 08:05 03/30/23 08:05 Labs: Laboratory Results - last 24 hr 03/27/23 03/27/23 03/27/23 18:05 20:20 22:51 WBC 35.49 H* RBC 3.61 L Hgb 8.7 L Hct 26.8 L MCV 74 L MCH 24.1 L MCHC 32.5 RDW 21.7 H Plt Count 498 H MPV 8.0 Immature Gran % 0.0 Neutrophils % 95.0 Lymphocytes % 2.0 Monocytes % 3.0 Eosinophils % 0.0 Basophils % 0.0 Nucleated RBC % 0.0 Absolute Neutrophils 33.72 H Absolute Lymphocytes 0.71 L Absolute Monocytes 1.06 H Absolute Eosinophils 0.00 Absolute Basophils 0.00 RBC Morphology See Below Hypochromasia 2+ Poikilocytosis 1+ Anisocytosis 1+ Microcytosis 1+ PT 11.5 H INR 1.2 H APTT 27.4 VBG pH 7.41 VBG pCO2 42 VBG pO2 28 VBG HCO3 27 VBG Total CO2 26 VBG O2 Saturation 54 VBG Base Excess 2 VBG Lactate 4.3 H* 1.3 Sodium 128 L Potassium 5.2 H Chloride 92 L Carbon Dioxide 24.4 Anion Gap 11.6 H BUN 18 Creatinine 1.0 Est GFR (CKD-EPI 2020) 82.49 Glucose 299 H Calcium 9.4 Magnesium 1.4 L Iron 12 L Ferritin 169 Total Bilirubin 0.3 AST 14 L ALT 18 Alkaline Phosphatase 185 H Creatine Kinase 44 Troponin I < 50 Total Protein 7.4 Albumin 3.1 L Lipase < 10 L Vitamin B12 1680 H Folate > 20.0 H Procalcitonin < 0.1 Urine Color Red Urine Clarity Turbid Urine pH 6.5 Ur Specific [place] 1.025 Urine Protein >=300 H Urine Ketones Negative Urine Blood Large H Urine Nitrite Negative Urine Bilirubin Negative Urine Urobilinogen 0.2 Ur Leukocyte Esterase Negative Urine RBC >50 H Urine WBC Not Applicable Ur Epithelial Cells Not Applicable Urine Crystals Not Applicable Urine Bacteria Not Applicable Urine Mucus Not Applicable Ur Culture Indicated? Yes Urine Glucose 100 H Random Vancomycin Add-On Test Request Patient ABO/Rh Antibody Screen Crossmatch 03/28/23 03/28/23 03/28/23 05:30 07:39 07:55 WBC 29.89 H* RBC 2.95 L Hgb 7.1 L Hct 21.7 L MCV 74 L MCH 24.1 L MCHC 32.7 RDW 21.5 H Plt Count 416 H MPV 8.2 Immature Gran % Neutrophils % Lymphocytes % Monocytes % Eosinophils % Basophils % Nucleated RBC % Absolute Neutrophils Absolute Lymphocytes Absolute Monocytes Absolute Eosinophils Absolute Basophils RBC Morphology Hypochromasia Poikilocytosis Anisocytosis Microcytosis PT 10.9 INR 1.1 APTT VBG pH VBG pCO2 VBG pO2 VBG HCO3 VBG Total CO2 VBG O2 Saturation VBG Base Excess VBG Lactate 2.0 H Sodium 129 L Potassium 4.4 Chloride 96 L Carbon Dioxide 24.5 Anion Gap 8.5 BUN 15 Creatinine 0.8 Est GFR (CKD-EPI 2020) 97.00 Glucose 244 H Calcium 8.7 Magnesium 1.6 L Iron Ferritin Total Bilirubin 0.2 AST 13 L ALT 13 L Alkaline Phosphatase 161 H Creatine Kinase Troponin I Total Protein 6.2 L Albumin 2.6 L Lipase Vitamin B12 Folate Procalcitonin Urine Color Urine Clarity Urine pH Ur Specific [place] Urine Protein Urine Ketones Urine Blood Urine Nitrite Urine Bilirubin Urine Urobilinogen Ur Leukocyte Esterase Urine RBC Urine WBC Ur Epithelial Cells Urine Crystals Urine Bacteria Urine Mucus Ur Culture Indicated? Urine Glucose Random Vancomycin 12.4 Add-On Test Request Patient ABO/Rh Cancelled B Positive Antibody Screen Cancelled NEGATIVE Crossmatch See Detail See Detail 03/28/23 Unknown WBC RBC Hgb Hct MCV MCH MCHC RDW Plt Count MPV Immature Gran % Neutrophils % Lymphocytes % Monocytes % Eosinophils % Basophils % Nucleated RBC % Absolute Neutrophils Absolute Lymphocytes Absolute Monocytes Absolute Eosinophils Absolute Basophils RBC Morphology Hypochromasia Poikilocytosis Anisocytosis Microcytosis PT INR APTT VBG pH VBG pCO2 VBG pO2 VBG HCO3 VBG Total CO2 VBG O2 Saturation VBG Base Excess VBG Lactate Sodium Potassium Chloride Carbon Dioxide Anion Gap BUN Creatinine Est GFR (CKD-EPI 2020) Glucose Calcium Magnesium Iron Ferritin Total Bilirubin AST ALT Alkaline Phosphatase Creatine Kinase Troponin I Total Protein Albumin Lipase Vitamin B12 Folate Procalcitonin Urine Color Urine Clarity Urine pH Ur Specific [place] Urine Protein Urine Ketones Urine Blood Urine Nitrite Urine Bilirubin Urine Urobilinogen Ur Leukocyte Esterase Urine RBC Urine WBC Ur Epithelial Cells Urine Crystals Urine Bacteria Urine Mucus Ur Culture Indicated? Urine Glucose Random Vancomycin Add-On Test Request Cancelled Patient ABO/Rh Antibody Screen Crossmatch
[2023-03-28] MEDS: guaiFENesin 600 MG TABCR PO ×2 (15:19→19:35)
[2023-03-28 15:34] LABS: MRSA PCR Negative (Negative)
[2023-03-28] MEDS: DOXYCYCLINE 100 MG in Normal Saline 100 ML IVPB (16:45)
[2023-03-28 18:25] LABS: HCT 29.9 % (40.0-50.0); HGB 9.8 g/dL (13.5-17.5)
[2023-03-28 18:39] LABS: Vancomycin, Trough 11.4 ug/mL (10.0-20.0)
[2023-03-28] MEDS: Albuterol/Ipratropium 3 ML UPD VIAL UPD (19:53)
[2023-03-28] MEDS: Insulin Glargine 300 UNITS/3 ML PEN SC (20:51)
[2023-03-28] MEDS: Pantoprazole 20 MG TABCR PO (21:04)
[2023-03-29] VITALS (7 sets, daily range): BP systolic 134–169; BP diastolic 63–81; PULSE 69–82; RESP 16–36; TEMP 35.9–36.8; O2SAT 89–97
[2023-03-29] MEDS: oxyCODONE 5 MG TAB PO ×5 (00:17→21:06)
[2023-03-29] MEDS: CEFEPIME 2 GM in Normal Saline 100 ML IVPB ×2 (01:37→14:57)
[2023-03-29] MEDS: Normal Saline Flush 10 ML SYR IVP ×5 (01:46→21:11)
[2023-03-29] MEDS: DOXYCYCLINE 100 MG in Normal Saline 100 ML IVPB ×2 (02:58→16:54)
[2023-03-29 07:13] LABS: Abs Immature Grans 0.55 10^3/uL (0.0-0.06); Basophils % 0.3; HCT 32.3 % (40.0-50.0); HGB 10.7 g/dL (13.5-17.5); Immature Grans % 1.6; Lymphocytes % 2.3; MCH 25.2 pg (27.0-33.0); MCHC 33.1 % (32.0-36.0); MCV 76 fL (80-95); MPV 8.3 fL (8.0-11.0); Neutrophils % 93.8; Platelet Count 476 10^3/uL (130-400); RBC 4.25 10^6/uL (4.36-5.78); RDW 22.2 % (11.8-14.1); RDW-SD 61.1 fL
[2023-03-29 07:19] LABS: WBC 34.75 10^3/uL (4.4-10.8)
[2023-03-29 07:23] LABS: Diff Comment Agrees w/ Instrument
[2023-03-29 07:24] LABS: Anisocytosis 2+
[2023-03-29 07:26] LABS: Anion Gap 9.5 mmol/L (3-11); BUN 13 mg/dL (7-18); CO2 21.5 mmol/L (21.0-32.0); CREATININE 0.8 mg/dL (0.70-1.30); Calcium 8.9 mg/dL (8.5-10.1); Chloride 95 mmol/L (98-107); Glucose 420 mg/dL (74-106); Magnesium 1.5 mg/dL (1.8-2.4); Potassium 4.5 mmol/L (3.5-5.1); Sodium 126 mmol/L (136-145)
[2023-03-29] MEDS: Metoprolol 12.5 MG TAB PO ×2 (07:35→21:06)
[2023-03-29] MEDS: Simvastatin 10 MG TAB PO (07:35)
[2023-03-29] MEDS: Multivitamin w/Minerals TAB 1 TAB PO (07:38)
[2023-03-29] MEDS: Tamsulosin 0.4 MG CAPCR PO (07:39)
[2023-03-29] MEDS: Ferrous Sulfate 325 MG TAB PO ×2 (07:39→21:06)
[2023-03-29] MEDS: Methylphenidate 10 MG TAB 5 MG PO (07:40)
[2023-03-29] MEDS: guaiFENesin 600 MG TABCR PO ×2 (07:41→21:06)
[2023-03-29] MEDS: Nicotine 14 MG/24 HR PATCH TD (07:42)
[2023-03-29] MEDS: Insulin Aspart 300 UNITS/3 ML PEN SC ×3 (08:04→21:08)
[2023-03-29] MEDS: VANCOMYCIN 500 MG in Normal Saline 100 ML 100 MG IVPB (08:15)
[2023-03-29] MEDS: Budesonide/Formoterol 160/4.5 6 GM 60 PUFF INH IH ×2 (08:23→20:18)
[2023-03-29] MEDS: Tiotropium Bromide-Respimat 10 PUFF INH 2 PUFF IH (08:24)
[2023-03-29] MEDS: Ipratropium/Albuterol 4 GM 120 PUFF INH IH ×4 (08:24→20:18)
--- NOTE | 2023-03-29 08:30 | RT.EKG_ITS ---
APPROVED REPORT Exam: Resting ECG Reason for Exam: dyspnea Patient Location: I HR:89 bpm ECG Measurements Heart Rate 89 AXIS SD 145 P 74 QRSd 106 QRS 73 QT 362 T 57 QTc 441 Conclusion Sinus rhythm...normal P axis, V-rate 50- 99 I have reviewed and interpreted ECG and agree with software generated interpretation.
--- NOTE | 2023-03-29 08:42 | W.PALLCONSUL ---
Date of service: 03/29/23 Time of Service: 08:42 History of Present Illness Narrative: From H and P This is a 71-year-old gentleman who has had progressive weight loss and decreased intake with severe anorexia and cachexia pending reevaluation of treatment of his bladder cancer which is now metastasized to his lungs. He presents with sepsis syndrome though has had no fever or hypotension he did have severe leukocytosis with lactic acidosis and tachycardia with tachypnea. Probable source of infection would be urinary at this time and is on appropriate antibiotic therapy. He also has been covered for possibility of pneumonia with severe COPD and emphysema. He will receive IV fluid resuscitation with ICU care until stabilized. If MAP falls below 65 we will consider pressor agents. Prognosis is poor but he remains a full code. Palliative care consultation has been placed. I am meeting with Sae, his daughter Maricarmen in person, Patricia on the phone, and his Sister Jalyn. He states that he is in the hospital because he has terminal cancer. Family fills in some of the blanks. Sae was for 41 years, the last 10 years down in [place]. Unfortunately his 4 years ago. [place] they recommended that he come [place] where he had more support. He has been living with his daughter Maricarmen. Maricarmen states that he is hardly eating at all, withdrawing, and not involving her so that she knows when he is sick. She also states that he has had very high blood sugars but does not inform anyone even the nurses in the hospital. He started having increasing problems came to the ER and was admitted to the hospitalist team. He is presently receiving IV hydration and antibiotics. He initially was a full code. I was asked to talk with Sae about his goals of treatment and also his CODE STATUS. Sae states that his mother was a DO NOT RESUSCITATE. He thinks he knows what it means. He had trouble defining CPR. What he was very clear about was that he would like to see what the oncologist has to say and what type of chemotherapy or radiation would be available to him. He has had a surgery where he had a tumor removed but he is uncertain now what the next steps are. He was to meet with the oncologist tomorrow. He is uncertain if he will be able to make it there. His daughter Maricarmen states that because of his weakened state and his withdrawal, she does not feel that she can care for him at home. Sae [place] agreeable to [place] to a local half-way to get stronger. A year ago Sae weighed about 120. Today he weighed 98. Sae's goals are to get his affairs in order. He has a dog that he would like to make sure is well taken care of. He also would like to celebrate different things with his grandchildren. He is hoping to live 2 years. Family states that he is in bed about 20 hours/day. Sae thinks he sleeps between 14 and 16. ( Assessment and Plan Assessment and plan (1) Malignant neoplasm metastatic from bladder: Status: Acute Assessment and plan: It appears by chest x-ray and renal ultrasound that he he has metastatic bladder cancer to the lung. He does have a PET scan but I do not have access to that at this time. He understands that his condition is probably terminal. He would like to years to wind up his affairs and celebrate activities with his grandchildren and unfortunately find a home for his dog. He is willing to try a round or 2 of oncology treatments to see if he can tolerate them. CODE STATUS we did talk about CODE STATUS and at this time after much discussion of risks benefits etc. he is choosing to be a DO NOT RESUSCITATE DO NOT INTUBATE. He would like to be given a trial for feeding tubes, IVs, antibiotics. Plan is to distribute these to [facility] and to be placed in the EMR. I did give the original to Maricarmen. Maricarmen Gunderson and Patricia by telephone were all in the room. I answered all questions of patient and family. Will continue to follow I did speak with Ngoc his manager rn case and also Dr. Cooley the hospitalist. If Sae is still here in a few days we will follow-up with him Review of Systems Narrative: Weakness, no appetite, bloody urine PFSH All Active Problems (Updated 03/29/23 @ 10:44 by Magnolia Torres MD, [place]) Malignant neoplasm metastatic from bladder (Acute) Discharge planning issues (Acute) DVT prophylaxis (Acute) Hydronephrosis, left (Acute) Hematuria (Acute) Acute exacerbation of chronic obstructive pulmonary disease (COPD) (Acute) Hypomagnesemia (Acute) Hyponatremia (Acute) Microcytic anemia (Chronic) Sepsis syndrome (Acute) Type 2 diabetes mellitus (Chronic) Bladder cancer (Chronic) Hyperlipidemia (Chronic 08/01/12) Essential hypertension (Chronic 01/30/13) Chronic obstructive lung disease (Chronic 01/31/13) Medical History Diverticulitis of colon (08/01/12) Acute pancreatitis (01/31/13) Acute appendicitis (01/31/13) Surgical History Appendectomy Social History (Updated 03/28/23 @ 02:38 by Jonathon Henry) Smoking/Tobacco Use Status: Current every day Quit status: has quit before Smoking risk assessment performed?: Yes Alcohol Intake: current Alcohol Intake frequency: holidays/special occasions only Housing: house Exam Narrative Exam Narrative: Sae is a 68-year-old man who is cachectic. He is fairly clear in his history. He is speaking in complete sentences but seems to tire easily and lay back on the bed. I did renew you than vitals from nursing staff. Results Last Vital Signs Temp 98.2 F 03/29/23 07:21 Pulse 78 03/29/23 07:47 Resp 18 03/29/23 07:21 BP 142/63 H 03/29/23 07:47 Pulse Ox 96 03/29/23 07:47 Labs 03/29/23 06:42 03/29/23 06:42 Labs: Laboratory Results - last 24 hr 03/28/23 03/28/23 03/28/23 07:55 14:10 18:12 WBC RBC Hgb 9.8 L D Hct 29.9 L MCV MCH MCHC RDW Plt Count MPV Immature Gran % Neutrophils % Lymphocytes % Monocytes % Eosinophils % Basophils % Nucleated RBC % Absolute Neutrophils Absolute Lymphocytes Absolute Monocytes Absolute Eosinophils Absolute Basophils RBC Morphology Anisocytosis Sodium Potassium Chloride Carbon Dioxide Anion Gap BUN Creatinine Est GFR (CKD-EPI 2020) Glucose Calcium Magnesium Vancomycin Trough 11.4 MRSA (TEM-PCR) Negative Add-On Test Request Patient ABO/Rh B Positive Antibody Screen NEGATIVE Crossmatch See Detail 03/28/23 03/29/23 03/29/23 Unknown 06:42 07:36 WBC 34.75 H* RBC 4.25 L Hgb 10.7 L Hct 32.3 L MCV 76 L MCH 25.2 L MCHC 33.1 RDW 22.2 H Plt Count 476 H MPV 8.3 Immature Gran % 1.6 Neutrophils % 93.8 Lymphocytes % 2.3 Monocytes % 2.0 Eosinophils % 0.0 Basophils % 0.3 Nucleated RBC % 0.0 Absolute Neutrophils 32.60 H Absolute Lymphocytes 0.80 L Absolute Monocytes 0.70 Absolute Eosinophils 0.00 Absolute Basophils 0.10 RBC Morphology See Below Anisocytosis 2+ Sodium 126 L Potassium 4.5 Chloride 95 L Carbon Dioxide 21.5 Anion Gap 9.5 BUN 13 Creatinine 0.8 Est GFR (CKD-EPI 2020) 97.00 Glucose 420 H Cancelled Calcium 8.9 Magnesium 1.5 L Vancomycin Trough MRSA (TEM-PCR) Add-On Test Request Cancelled Patient ABO/Rh Antibody Screen Crossmatch Laboratory Tests 07/30/13 08:13 Hemoglobin A1c 8.0 Imaging Additional studies: Patient Name: Jesus Johnson Jr Unit #: [id number] Loc: ICU Ordering Provider: Benoit Robbins Status: ADM IN Primary Care Provider: Lizet Monsalve Date of Exam: 03/27/23 Sex: M Admission Date: 03/27/23 : 1955 Age: 68 Exam(s) XR PORTABLE CHEST AP EXAM: XR PORTABLE CHEST AP CLINICAL HISTORY: sepsis. TECHNIQUE: 2D digital imaging was performed. COMPARISON: CR CHEST 2 VIEWS PA,LAT from 05/20/2010 FINDINGS: Single AP portable view. Heart size is upper normal. The mediastinum is not widened. Bilateral hyperinflation-emphysematous changes. No focal infiltrates in the left lung. However, there is a concerning nodular infiltrate in the right lung base now evident. This measures approximately 1 point 5-2 cm size. No pleural effusions. IMPRESSION: COPD. Spiculated nodular infiltrate noted in the right lung base. CT scan follow-up recommended to rule out malignancy. MPRESSION: 1. There is significant unilateral left-sided hydronephrosis and hydroureter due to a large malignant-appearing mass in the left side of the urinary bladder which is obstructing the left UVJ. 2. Small amount of free fluid is noted in Morison's pouch between the right kidney and the liver. CT scan of the chest abdomen pelvis is recommended. I note that this patient has a nodular density in the right lung base seen on chest x-ray performed yesterday.
[2023-03-29 08:52] LABS: Lab Add On Test DONE
[2023-03-29] MEDS: MORPHine 2 MG/ML SYR 1 MG IVP (08:54)
--- NOTE | 2023-03-29 09:04 | CMPROGNOTE_ITS ---
Date of service: 03/29/23 Time of Service: 09:04 Care Management Progress Note Progress Note Text Progress Note Text: S/O:eJsus was lying in bed when CM met with him. He was more awake today and more agreeable to conversation. This morning he had a Palliative Care consultation with Dr. Torres and his daughter. Goals of care were discussed and Jesus made the decision to change his code status to DNR/DNI. He made it clear however that he still wants to have any medical issues that arise treated, including his cancer. He also agreed to go to a SNF for short term rehab to increase his strength and independence. CM discussed choicesfor referrals to be sent and Jessu requested that CM discuss this with his daughter, as she is from the area. CM contacted his daughter Maricarmen this afternoon and discussed the situation. She requested that in addition to SNFs, a referral be sent to [facility], the acute rehab in [place], [place].. Jesus spent time in an [facility] facility in [place] a couple of years ago and did very well. CM sent referrals to [facility] [place], [place] and [facility]. A:Jesus is a 68 year old man admitted on with sepsis P:Anticipate Jesus will be transferred to a SNF for short term rehab prior to returning home. Referrals have been sent to [facility], [place] and [facility] He will follow up with the facility providers and plan of care. Transportation will be determined by disposition. CM will follow and assess for discharge needs.
--- NOTE | 2023-03-29 09:04 | DI.RAD_ITS ---
Exam(s) XR PORTABLE CHEST AP EXAM: XR PORTABLE CHEST AP CLINICAL HISTORY: dyspnea TECHNIQUE: 2D digital imaging was performed of the chest. Two images were obtained. AP views were obtained. COMPARISON: CR,XR XR PORTABLE CHEST AP from 03/27/2023 FINDINGS: MEDIASTINUM: Normal. HEART: Normal. PULMONARY VASCULATURE: Normal. LUNGS: The lungs are hyperinflated consistent with underlying COPD. Chronic interstitial fibrotic ch anges are seen. No focal consolidating infiltrates are present. PLEURAL SPACE: No pleural effusion or pneumothorax. BONE:Within normal limits for the patient's age. OTHER FINDINGS:Normal. IMPRESSION: No focal consolidation. No findings to suggest congestive heart failure. DATA REPOSITORY: RADIATION DOSE DELIVERED:
[2023-03-29 09:11] LABS: NT-proBNP 2776 pg/mL (<300); Troponin I < 50 ng/L (<or=60)
[2023-03-29] MEDS: Insulin NPH-Human 300 UNITS/3 ML PEN 20 UNIT SC (09:52)
[2023-03-29] MEDS: Mirabegron 25 MG TABCR PO (09:55)
[2023-03-29] MEDS: predniSONE 20 MG TAB 40 MG PO (09:56)
[2023-03-29 10:02] LABS: BE (Venous) -1 mmol/L (-2-3); HCO3 (Venous) 24 mmol/L (23-28); O2 Sat (Venous) 53 %; TCO2 (Venous) 23 mmol/L (24-29); pCO2 (Venous) 39 mmHg (41-51); pO2 (Venous) 29 mmHg
[2023-03-29 10:23] LABS: Hemoglobin A1C 7.9 % (<5.7)
--- NOTE | 2023-03-29 15:02 | CHAPLAIN ---
I had a brief visit with Jesus his morning. His daughter Maricarmen and sister Jalyn were in the room. Following a Palliative Care consult with Dr. Torres earlier today, Jesus's code status changed to DNI/DNR. He had been for 40 years, living in [place]. His four years ago. When his bladder cancer, (now with mets to the lung) was discovered he moved to [place] to be with his daughter. Another daughter was on the phone today when the change is code status was discussed. Jesus was in bed and his daughter and sister were nearby when I visited. They thanked me for checking in on Jesus. He did not seem interested in further conversation.
--- NOTE | 2023-03-29 16:07 | PGE_ITS ---
Date of Service Date of service: 03/29/23 Time of Service: 16:07 Assessment and Plan Assessment and plan (1) Acute exacerbation of chronic obstructive pulmonary disease (COPD): Status: Acute Assessment and plan: Continue scheduled DuoNebs 4 times daily along with as needed albuterol. Continue Spiriva Respimat along with Symbicort. At home he was on Advair discus and Spiriva. Encourage cough and deep breathing use of incentive spirometry. Will add acapella and put him on some Mucinex. Consider de-escalation of his antibiotics. As his blood cultures show no growth. Will await results of his sputum culture.Urine culture showed gram-positive lauren less than 10,000 colonies. continue short course of prednisone (2) Malignant neoplasm metastatic from bladder: Status: Acute Assessment and plan: Dr. Knight's consult from yesterday appreciated. Dr. Knight has found that the patient first was found to have a bladder mass in January 2023 and underwent cystoscopy and transurethral resection of large bladder tumor. Subsequent CT PET scan for staging purposes done in March 07, 2023 showed metastatic disease. Patient has since been referred to radiation oncology and medical oncology. Dr. Magnolia Torres saw the patient in consultation for palliative care consult this morning. Patient is agreed to DNR/DNI CODE STATUS as he does not want to go on life support in the event of cardiopulmonary arrest. However he does want to give a trial of chemotherapy and radiation therapy if it well help suppress his cancer. (3) Hydronephrosis, left: Status: Acute Assessment and plan: Patient may require left nephrostomy tube. Will discuss further with Dr. Knight and make appropriate referral to [facility]. (4) Hypomagnesemia: Status: Acute Assessment and plan: Mg remains low at 1.5, will give iv and oral replacement (5) Hyponatremia: Status: Acute Assessment and plan: patient appears to have had a chronic hyponatremia, his baseline appears to be around 130, but has fallen further this admission to 126 despite iv LR and prior to that he was given iv NS on admission. 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 I have ordere urine and plasma osmolality. I will put him on 1200 mL fluid restriction and see if this responds. (6) Type 2 diabetes mellitus: Status: Chronic Assessment and plan: glucose spiked this morning into the 400's and was high all last night. I have adjusted his Lantus and put him on CHO coverage along w/ adjustment in his sliding scale. I have also added NPH to his regimen while he is on prednisone Qualifiers: Diabetes mellitus exterminator termite insulin use: without exterminator termite use Diabetes mellitus complication status: with other specified complication Qualified Code(s): E11.69 - Type 2 diabetes mellitus with other specified complication (7) Essential hypertension: Status: Chronic Subjective Subjective Interval history since last seen: Your average blood sugars were elevated at 400 this morning but since giving him NPH and increasing his sliding scale insulin resistant levels his blood sugars did come down into the 80s and 90s and low 100s. Jesus has a bit of a cough but is nonproductive he remains afebrile. He continues to receive antibiotics including cefepime and vancomycin and doxycycline although it is unclear as to what exactly we are treating. He does have a chronic left hydronephrosis from his bladder mass. He continues to have a leukocytosis despite antibiotics but partially this may be secondary to leukemoid reaction to the steroids or it may be secondary to his tumor. WBCs were 35,000 on admission and they remain 35,000 today. There was a slight drop yesterday down to 29,000. Blood cultures show no growth after 24 hours. Urine cultures growing less than 10,000 colonies of gram-positive lauren. Sputum Gram stain was obtained showed a few mixed gram- negative lauren none predominant and no epithelial cells and few white blood cells. Repeat chest x-ray was done today because of acute dyspnea that shows hyperinflated lung pattern consistent with COPD along with chronic interstitial fibrotic changes but no consolidating infiltrates. Exam Narrative Exam Narrative: Thin appearing older white male who is in no acute distress not using accessory respiratory muscles not requiring supplemental oxygen. He is able to talk in complete paragraphs. Lungs with prolonged expiratory phase and some end expiratory wheezing Heart is regular rate and rhythm Abdomen scaphoid soft and nontender Extremities without peripheral cyanosis or edema Objective Last Vital Signs Temp 36.4 C L 03/29/23 15:42 Pulse 82 03/29/23 15:42 Resp 18 03/29/23 15:42 BP 145/74 H 03/29/23 15:42 Pulse Ox 96 03/29/23 15:42 Laboratory Results - last 24 hr 03/28/23 03/29/23 03/29/23 18:12 06:42 07:36 WBC 34.75 H* RBC 4.25 L Hgb 9.8 L D 10.7 L Hct 29.9 L 32.3 L MCV 76 L MCH 25.2 L MCHC 33.1 RDW 22.2 H Plt Count 476 H MPV 8.3 Immature Gran % 1.6 Neutrophils % 93.8 Lymphocytes % 2.3 Monocytes % 2.0 Eosinophils % 0.0 Basophils % 0.3 Nucleated RBC % 0.0 Absolute Neutrophils 32.60 H Absolute Lymphocytes 0.80 L Absolute Monocytes 0.70 Absolute Eosinophils 0.00 Absolute Basophils 0.10 RBC Morphology See Below Anisocytosis 2+ VBG pH VBG pCO2 VBG pO2 VBG HCO3 VBG Total CO2 VBG O2 Saturation VBG Base Excess Sodium 126 L Potassium 4.5 Chloride 95 L Carbon Dioxide 21.5 Anion Gap 9.5 BUN 13 Creatinine 0.8 Est GFR (CKD-EPI 2020) 97.00 Glucose 420 H Cancelled Hemoglobin A1c Calcium 8.9 Magnesium 1.5 L Troponin I < 50 NT-Pro-B Natriuret Pep 2776 H Vancomycin Trough 11.4 Add-On Test Request DONE 03/29/23 09:55 WBC RBC Hgb Hct MCV MCH MCHC RDW Plt Count MPV Immature Gran % Neutrophils % Lymphocytes % Monocytes % Eosinophils % Basophils % Nucleated RBC % Absolute Neutrophils Absolute Lymphocytes Absolute Monocytes Absolute Eosinophils Absolute Basophils RBC Morphology Anisocytosis VBG pH 7.40 VBG pCO2 39 L VBG pO2 29 VBG HCO3 24 VBG Total CO2 23 L VBG O2 Saturation 53 VBG Base Excess -1 Sodium Potassium Chloride Carbon Dioxide Anion Gap BUN Creatinine Est GFR (CKD-EPI 2020) Glucose Hemoglobin A1c 7.9 H Calcium Magnesium Troponin I NT-Pro-B Natriuret Pep Vancomycin Trough Add-On Test Request Time Spent with Patient Time Spent with Patient: 35-49 minutes Time was spent: preparing to see the patient(eg.review tests), ordering medications,tests, procedures, referring, communicating with other health home care consultant, indepentently interpreting results, counseling the patient and care coordination
[2023-03-29] MEDS: MAGNESIUM SULFATE 4 GM/100 ML BAG IVPB (16:54)
[2023-03-29 17:29] LABS: Bilirubin Small (Negative); Blood Large (Negative); Clarity Turbid (Clear); Glucose Negative (Negative); Ketones Negative (Negative); Leukocyte Esterase Trace (Negative); Nitrite Negative (Negative)
[2023-03-29 17:37] LABS: C & S Indicated? Yes; RBC >50 HPF (0-2)
[2023-03-29 18:20] LABS: MRSA PCR Negative (Negative)
[2023-03-29 19:59] LABS: Creatinine,Urine 35.23 mg/dL; Sodium, Urine 100 mmol/L
[2023-03-29] MEDS: Pantoprazole 20 MG TABCR PO (21:07)
[2023-03-29] MEDS: Acetaminophen 325 MG TAB 650 MG PO (21:07)
[2023-03-29] MEDS: Magnesium Oxide 400 MG TAB PO (21:07)
[2023-03-29] MEDS: Insulin Glargine 300 UNITS/3 ML PEN 10 UNITS SC (21:07)
[2023-03-30] MEDS: oxyCODONE 5 MG TAB PO ×5 (01:59→23:00)
[2023-03-30] MEDS: CEFEPIME 2 GM in Normal Saline 100 ML IVPB ×2 (02:00→13:58)
[2023-03-30] MEDS: DOXYCYCLINE 100 MG in Normal Saline 100 ML IVPB ×2 (04:02→17:23)
[2023-03-30] MEDS: Mirabegron 25 MG TABCR PO (08:20)
[2023-03-30] MEDS: Nicotine 14 MG/24 HR PATCH TD (08:20)
[2023-03-30] MEDS: Methylphenidate 10 MG TAB 5 MG PO (08:20)
[2023-03-30] MEDS: predniSONE 20 MG TAB 40 MG PO (08:20)
[2023-03-30] MEDS: guaiFENesin 600 MG TABCR PO ×2 (08:20→21:07)
[2023-03-30] MEDS: Ferrous Sulfate 325 MG TAB PO ×2 (08:20→21:07)
[2023-03-30] MEDS: Simvastatin 10 MG TAB PO (08:20)
[2023-03-30] MEDS: Multivitamin w/Minerals TAB 1 TAB PO (08:20)
[2023-03-30] MEDS: Magnesium Oxide 400 MG TAB PO ×2 (08:20→21:08)
[2023-03-30] MEDS: Tamsulosin 0.4 MG CAPCR PO (08:20)
[2023-03-30] MEDS: Metoprolol 12.5 MG TAB PO ×2 (08:20→21:08)
[2023-03-30] MEDS: Normal Saline Flush 10 ML SYR IVP ×2 (08:20→21:38)
[2023-03-30] MEDS: Ipratropium/Albuterol 4 GM 120 PUFF INH IH ×3 (08:36→18:57)
[2023-03-30] MEDS: Budesonide/Formoterol 160/4.5 6 GM 60 PUFF INH IH ×2 (08:36→20:54)
[2023-03-30] MEDS: Tiotropium Bromide-Respimat 10 PUFF INH 2 PUFF IH (08:36)
[2023-03-30 08:51] LABS: ALT 16 U/L (16-63); AST 20 U/L (15-37); Alkaline Phosphatase 178 U/L (46-116); Anion Gap 7.6 mmol/L (3-11); BUN 12 mg/dL (7-18); Bilirubin, Total 0.4 mg/dL (0.2-1.0); C-Reactive Protein 2.67 mg/dL (0.0-0.3); CO2 26.4 mmol/L (21.0-32.0); CREATININE 0.6 mg/dL (0.70-1.30); Calcium 9.2 mg/dL (8.5-10.1); Chloride 95 mmol/L (98-107); Glucose 74 mg/dL (74-106); Magnesium 1.9 mg/dL (1.8-2.4); Potassium 3.8 mmol/L (3.5-5.1); Sodium 129 mmol/L (136-145); Total Protein 7.2 g/dL (6.4-8.2)
[2023-03-30 09:14] VITALS: BP 158/86; PULSE 76; RESP 16; TEMP 36.4; O2SAT 87
[2023-03-30 10:00] LABS: Lactate 1.1 mmol/L (0.6-1.4)
[2023-03-30 10:02] LABS: HCT 30.6 % (40.0-50.0); HGB 10.2 g/dL (13.5-17.5); MCH 25.6 pg (27.0-33.0); MCHC 33.3 % (32.0-36.0); MCV 77 fL (80-95); MPV 8.2 fL (8.0-11.0); RBC 3.99 10^6/uL (4.36-5.78); RDW 22.1 % (11.8-14.1); RDW-SD 61.7 fL; WBC 44.99 10^3/uL (4.4-10.8)
[2023-03-30 10:03] LABS: Absolute Lymphocyte Count 1.35 10^3/uL (1.2-3.4); Absolute Neutrophil Count 43.64 10^3/uL (1.2-6.7); Bands % 2; Diff Comment Manual Differential
[2023-03-30 10:04] LABS: Anisocytosis 2+; Platelet Count 669 10^3/uL (130-400)
[2023-03-30 11:06] LABS: Procalcitonin < 0.1 ng/mL
[2023-03-30 12:00] VITALS: BP 145/79; PULSE 60; RESP 16; TEMP 36.6; O2SAT 96
--- NOTE | 2023-03-30 13:40 | CMPROGNOTE_ITS ---
Date of service: 03/30/23 Time of Service: 13:40 Care Management Progress Note Progress Note Text Progress Note Text: S/O: Sae was being evaluated by PT when CM attempted to visit with him. Per chart review, his WBC increased significantly from 34.75 to 44.99 overnight. PT recommends SNF for continued rehab. [facility] to [facility], [facility], [facility] and [facility], as requested. CM will continue to follow. A:Jesus is a 68 year old man admitted on with sepsis P:Anticipate Jesus will be transferred to a SNF for short term rehab prior to returning home. Referrals have been sent to [facility], [facility], [facility] and [facility] He will follow up with the facility providers and plan of care. Transportation will be determined by disposition. CM will follow and assess for discharge needs.
[2023-03-30] MEDS: Ondansetron 4 MG/2 ML VIAL IVP (14:08)
--- NOTE | 2023-03-30 15:07 | IN_ITS ---
PT Notes Visit Reasons: Sepsis syndrome, Metastatic bladder cancer Inpatient Physical Therapy Evaluation Date: 03/30/23 Referring Doctor: Dr. Broderick PT Orders: PT CONSULT: extended stay- weakness Precautions: standard Patient Profile/Admitting Diagnosis: Patient presented to ER 03/27/23 with c/o weakness and near-syncope. He was diagnosed with sepsis in the presence of bladder CA with metastases to the lungs. Was admitted to ICU initially, and later able to transfer to the floor. PT orders received for mobility assessment and mobilization. Social History/Home Situation: Lives with daughter in private home with a few steps to enter. Typically ambulates independently, but has FWW at home. Equipment Owned/DME: FWW Subjective: Sae states that he has been walking to the bathroom with nursing and feeling okay with it. Admits that he's a little off balance sometimes, but takes it slow. States that he is very sedentary at baseline, and admits to limiting his walking due to fear of falling. States that his mobility limitations are very new, and he's having some difficulty adjusting. Objective: General Observation: Resting in bed. Frail appearing. IV in LUE. Mental Status: A&Ox3. Very pleasant and cooperative. Pain: 5/10 pelvic pain ROM: Right Upper Extremity: WFL Left Upper Extremity: WFL Right Lower Extremity: WFL Left Lower Extremity: WFL Strength: Right Upper Extremity: Shoulder flexion 4/5. Biceps 4/5. Triceps 3+/5. Kiln Furniture Saw Tender is weak, but equal. Left Upper Extremity: Shoulder flexion 4/5. Biceps 4/5. Triceps 3+/5. Kiln Furniture Saw Tender is weak, but equal. Right Lower Extremity: Hip flexion 4-/5. Quads 4/5. Ankle DF 4/5. Significant muscle atrophy noted through LEs. Left Lower Extremity: Hip flexion 4-/5. Quads 4/5. Ankle DF 4/5. Significant muscle atrophy noted through LEs. Sensation: admits to tingling in bilat LEs Bed Mobility/Transfers: supine-sit: independent sit-stand: independent stand-sit: independent Gait: Ambulates 200' with FWW, SBA. Ambulates short distances in room without AD, although with increased path deviation and ankle strategies during ambulation. Demonstrates poor safety awareness, leaving walker behind to transfer to sitting position and reaching for furniture to support. Requires cues for equipment management throughout. Balance: Static Sitting: good Dynamic Sitting: good Static Standing: good Dynamic Standing: fair 4-Position Balance Test: 2/4 Small VU: 10 seconds Partial Tandem: 10 seconds Full Tandem: 0 seconds Single Leg Stance: 0 seconds Special Tests: Mobility Limitations Standardized Measure [facility] AM-PAC 6 clicks Basic Mobility Inpatient Short Form: Raw Score: 24 CMS Score: 24 Informed Consent/Education: Patient instructed in purpose of PT consult and plan of care. Treatment: Initial Evaluation 08185 Therapeutic Exercises [id number]: Instructed in therex program for completion between PT sessions Ankle pumps 10x SLR- 5x each, due to fatigue. Requires verbal and tactile cues for effective completion bridges 10x ambulation as above for improved cardiovascular endurance *patient very fatigued post-session. Was positioned in bed with legs elevated to reduce heel pressure. Assessment: Patient is a 68 year old male referred to physical therapy services with the diagnosis of weakness during extended hospital stay. He is admittedly very sedentary at baseline, and has had significant weight loss in the past few months. He presents with significant weakness, imbalance, and diminished activity tolerance, and requires PT intervention to maximize mobility and allow for safe transition back to the community. Anticipate he will require continued rehabilitation in SNF setting prior to returning home due to his impairments. He currently demonstrates the following impairment level findings: 1. Decreased lower extremity strength 2. Decreased upper extremity strength 3. Decreased balance 4. Decreased activity tolerance Impairments are contributing to the following functional limitations: 1. Unable to safely ambulate without assistive device 2. Decreased safety awareness 3. Increased fall risk 4. Global weakness Patient is assessed as Moderate 10890 complexity based on the following: History: As above Examination: Functional limitations as noted above Presentation: Evolving, due to acute medical issues Decision Making: Moderate complexity Goals: Goals X1 week 1. Supine-Sit : independent 2. Sit-Supine : independent 3. Sit-Stand : independent 4. Stand-Sit : independent 5. Bed-Chair : independent with FWW, with demonstration of safe management of equipment 6. Chair-Bed : independent with FWW, with demonstration of safe management of equipment 7. Gait : independent with FWW, with demonstration of safe management of equipment, 250' Plan of Care/Treatment Plan: 1-2x/day, 7 days/week x 1 week. Plan of care has been reviewed with the WATER TREATMENT OPERATOR providing the service under Physical Therapy direction. Initiate Physical Therapy intervention for strengthening, bed mobility, transfers, gait, stairs, balance training, use of assistive device. DISCHARGE RECOMMENDATIONS: SNF for continued rehabilitation TREATMENT CODE/TIME: [id number] ([id number], [id number]) Kari Owens, PT, DPT [facility] Please sign an return this page within 30 days if you agree with the above POC. Thank you! Physician Signature Date [facility] All Active Problems (Updated 03/29/23 @ 17:21 by Ho Broderick MD) Malignant neoplasm metastatic from bladder (Acute) Discharge planning issues (Acute) DVT prophylaxis (Acute) Hydronephrosis, left (Acute) Hematuria (Acute) Acute exacerbation of chronic obstructive pulmonary disease (COPD) (Acute) Hypomagnesemia (Acute) Hyponatremia (Acute) Microcytic anemia (Chronic) Sepsis syndrome (Acute) Type 2 diabetes mellitus (Chronic) Bladder cancer (Chronic) Hyperlipidemia (Chronic 08/01/12) Essential hypertension (Chronic 01/30/13) Chronic obstructive lung disease (Chronic 01/31/13) Medical History Diverticulitis of colon (08/01/12) Acute pancreatitis (01/31/13) Acute appendicitis (01/31/13) Surgical History Appendectomy
[2023-03-30 15:22] VITALS: BP 125/77; PULSE 88; RESP 16; TEMP 36.9; O2SAT 94
--- NOTE | 2023-03-30 16:28 | W.PM.PROGNOT ---
Date of Service Date of service: 03/30/23 Time of Service: 16:28 Assessment and Plan Assessment and plan (1) Sepsis syndrome: Status: Acute Assessment and plan: patient presented w/ sepsis syndrome, acute confusion, leukocytosis 35,000, elevated lactate 4.3 however urine and blood cultures are NGTD. However he has left hydronephrosis and hydroureter and we have not been able to exclude infection above the obstruction which is in his bladder at the left UVJ from bladder cancer. We know that he already has bone (spine) and lung mets (RLL nodule). He already has partial tumor [place] done through [place]. He remains on Cefepime, his MRSA screen was negative. I did stop doxycycline, and Vancomycin yesterday but kept him on cefepime. I have discussed his case w/ Dr. Knight, he feels that the hydronephrosis has been present since January and it is unlikely that a nephrostomy tube would salvage his left renal function but he thinks it would be a good idea for IR to at least drain the left hydronephrosis/hydroureter to see if this is purulent material or not. If no infection from the hydronephrosis/hydroureter that he would not necessarily need to keep the nephrostomy tube in place. HIs daughter and his sister indicated that when he was first diagnosed w/ the bladder mass, the urologist, Dr. Agrawal at the [place] recommended nephrostomy tube but patient declined on multiple occasions. He is now agreeble to drainage procedure. (2) Leukocytosis, unspecified: Status: Acute Assessment and plan: will dc his prednisone as he is no longer wheezing, see if his leukocytosis comes down at all. I suspect that his leukocytosis is d/t either his bladder mass or d/t infection from his hydronephrosis. Qualifiers: Leukocytosis type: bandemia Qualified Code(s): D72.825 - Bandemia (3) Hydronephrosis, left: Status: Acute Assessment and plan: As above (4) Malignant neoplasm metastatic from bladder: Status: Acute Assessment and plan: As above (5) Acute exacerbation of chronic obstructive pulmonary disease (COPD): Status: Acute Assessment and plan: Continue bronchodilators. Will discontinue steroids at this point. Hopefully this will improve his hyperglycemic response. 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 Continue meal coverage. DC NPH as I am stopping his prednisone Qualifiers: Diabetes mellitus parts counterman insulin use: without halfway use Diabetes mellitus complication status: with other specified complication Qualified Code(s): E11.69 - Type 2 diabetes mellitus with other specified complication (9) Essential hypertension: Status: Chronic Assessment and plan: Continue home medications. Subjective Subjective Interval history since last seen: Jesus has no acute complaints denies any sputum production today no chest pain or shortness of breath. He remains on room air. He is requesting a midline/PICC for labs/antibiotics. He complains about being poked for blood work. Exam Narrative Exam Narrative: Thin, cachectic male who is alert and oriented, no acute distress, talking in complete sentences w/ out dyspnea or wheezing Lungs: clear w/ prolonged breath sounds, no rhonchi or wheezing or rales Heart: regular Abdomen: soft, Objective Last Vital Signs Temp 36.9 C 03/30/23 15:22 Pulse 88 03/30/23 15:22 Resp 16 03/30/23 15:22 BP 125/77 03/30/23 15:22 Pulse Ox 94 03/30/23 15:22 Laboratory Results - last 24 hr 03/29/23 03/29/23 03/30/23 16:50 17:08 08:05 WBC 44.99 H* RBC 3.99 L Hgb 10.2 L Hct 30.6 L MCV 77 L MCH 25.6 L MCHC 33.3 RDW 22.1 H Plt Count 669 H MPV 8.2 Immature Gran % 0.0 Neutrophils % 95.0 Band Neutrophils % 2 Lymphocytes % 3.0 Monocytes % 0.0 Eosinophils % 0.0 Basophils % 0.0 Nucleated RBC % 0.0 Absolute Neutrophils 43.64 H Absolute Lymphocytes 1.35 Absolute Monocytes 0.00 L Absolute Eosinophils 0.00 Absolute Basophils 0.00 RBC Morphology See Below Anisocytosis 2+ VBG Lactate 1.1 Sodium 129 L Potassium 3.8 Chloride 95 L Carbon Dioxide 26.4 Anion Gap 7.6 BUN 12 Creatinine 0.6 L Est GFR (CKD-EPI 2021) 105.80 Glucose 74 Calcium 9.2 Magnesium 1.9 Total Bilirubin 0.4 AST 20 ALT 16 Alkaline Phosphatase 178 H C-Reactive Protein 2.67 H Total Protein 7.2 Albumin 3.0 L Procalcitonin < 0.1 Urine Color Red Urine Clarity Turbid Urine pH 7.0 Ur Specific [place] 1.020 Urine Protein 100 H Urine Ketones Negative Urine Blood Large H Urine Nitrite Negative Urine Bilirubin Small H Urine Urobilinogen 1.0 H Ur Leukocyte Esterase Trace H Urine RBC >50 H Urine WBC Not Applicable Ur Epithelial Cells Not Applicable Urine Crystals Not Applicable Urine Bacteria Not Applicable Urine Mucus Not Applicable Ur Culture Indicated? Yes Ur Random Creatinine 35.23 Ur Random Sodium 100 Urine Glucose Negative MRSA (TEM-PCR) Negative Time Spent with Patient Time Spent with Patient: 35-49 minutes Time was spent: preparing to see the patient(eg.review tests), ordering medications,tests, procedures, referring, communicating with other health client care representative (Dr. Knight as well as [facility] urology), indepentently interpreting results, counseling the patient (As well as patient's sister and daughter) and care coordination
[2023-03-30] MEDS: Insulin Aspart 300 UNITS/3 ML PEN SC ×3 (17:36→21:24)
[2023-03-30 18:29] LABS: Osmolality, Urine 478 mOsm/kg (150-1150)
[2023-03-30 19:08] LABS: Osmolality Serum 273 mOsm/kg (275-295)
[2023-03-30] MEDS: Pantoprazole 20 MG TABCR PO (21:08)
[2023-03-30] MEDS: Acetaminophen 325 MG TAB 650 MG PO (21:18)
[2023-03-30 21:22] VITALS: BP 133/70; PULSE 76; RESP 18; TEMP 36.2; O2SAT 93
[2023-03-30] MEDS: Insulin Glargine 300 UNITS/3 ML PEN 10 UNITS SC (21:27)
[2023-03-30 23:03] VITALS: BP 122/62; PULSE 65; RESP 18; TEMP 36.3; O2SAT 97
[2023-03-31] MEDS: CEFEPIME 2 GM in Normal Saline 100 ML IVPB (02:53)
[2023-03-31 02:59] VITALS: BP 143/69; PULSE 84; RESP 16; TEMP 36.3; O2SAT 96
[2023-03-31] MEDS: Acetaminophen 325 MG TAB 650 MG PO ×2 (03:00→18:28)
[2023-03-31] MEDS: oxyCODONE 5 MG TAB PO ×5 (03:00→22:19)
[2023-03-31] MEDS: DOXYCYCLINE 100 MG in Normal Saline 100 ML IVPB ×2 (03:45→18:37)
[2023-03-31 07:27] LABS: Abs Immature Grans 0.73 10^3/uL (0.0-0.06); HCT 29.8 % (40.0-50.0); HGB 9.9 g/dL (13.5-17.5); MCH 25.7 pg (27.0-33.0); MCHC 33.2 % (32.0-36.0); MCV 77 fL (80-95); MPV 8.3 fL (8.0-11.0); Platelet Count 550 10^3/uL (130-400); RBC 3.85 10^6/uL (4.36-5.78); RDW 22.7 % (11.8-14.1); RDW-SD 64.3 fL
[2023-03-31 07:37] LABS: Anion Gap 9.8 mmol/L (3-11); BUN 17 mg/dL (7-18); CO2 27.2 mmol/L (21.0-32.0); CREATININE 0.8 mg/dL (0.70-1.30); Calcium 9.1 mg/dL (8.5-10.1); Chloride 96 mmol/L (98-107); Glucose 66 mg/dL (74-106); Magnesium 1.7 mg/dL (1.8-2.4); Potassium 3.7 mmol/L (3.5-5.1); Sodium 133 mmol/L (136-145)
[2023-03-31 07:55] LABS: Absolute Lymphocyte Count 1.99 10^3/uL (1.2-3.4); Absolute Monocyte Count 0.79 10^3/uL (0.1-0.8); Absolute Neutrophil Count 36.52 10^3/uL (1.2-6.7); Bands % 2; Diff Comment Manual Differential
[2023-03-31] MEDS: Tiotropium Bromide-Respimat 10 PUFF INH 2 PUFF IH (08:17)
[2023-03-31] MEDS: Ipratropium/Albuterol 4 GM 120 PUFF INH IH ×3 (08:17→18:29)
[2023-03-31] MEDS: Budesonide/Formoterol 160/4.5 6 GM 60 PUFF INH IH ×2 (08:17→20:50)
[2023-03-31] MEDS: Methylphenidate 10 MG TAB 5 MG PO (08:29)
[2023-03-31] MEDS: Metoprolol 12.5 MG TAB PO ×2 (08:29→20:01)
[2023-03-31] MEDS: Tamsulosin 0.4 MG CAPCR PO (08:29)
[2023-03-31] MEDS: Multivitamin w/Minerals TAB 1 TAB PO (08:29)
[2023-03-31] MEDS: Simvastatin 10 MG TAB PO (08:29)
[2023-03-31] MEDS: guaiFENesin 600 MG TABCR PO ×2 (08:30→20:01)
[2023-03-31] MEDS: Nicotine 14 MG/24 HR PATCH TD (08:30)
[2023-03-31] MEDS: Mirabegron 25 MG TABCR PO (08:30)
--- NOTE | 2023-03-31 09:34 | W.PM.PROGNOT ---
Date of Service Date of service: 03/31/23 Time of Service: 09:34 Assessment and Plan Assessment and plan (1) Sepsis syndrome: Status: Acute Assessment and plan: patient presented w/ sepsis syndrome, acute confusion, leukocytosis 35,000, elevated lactate 4.3 however urine and blood cultures are NGTD. However he has left hydronephrosis and hydroureter and we have not been able to exclude infection above the obstruction which is in his bladder at the left UVJ from bladder cancer. We know that he already has bone (spine) and lung mets (RLL nodule). He already has partial tumor resection done through the [place] in January. He remains on Cefepime, his MRSA screen was negative. I did stop doxycycline, and Vancomycin yesterday but kept him on cefepime. [facility] [place] [facility] this morning. Neither place had capacity to accept the patient for transfer today. [facility] recommended calling back tomorrow. [facility] did put me in touch with [facility] and they agreed to a down and back procedure for nephrostomy tube placement. I did put in my order for the procedure along w/ request for cultures and gram stain of any fluid obtained. (2) Leukocytosis, unspecified: Status: Acute Assessment and plan: off prednisone now w/ slight decrease in his WBC to 39,000, I still think that there is ongoing infection in the hydronephrosis that needs drained. Qualifiers: Leukocytosis type: bandemia Qualified Code(s): D72.825 - Bandemia (3) Hydronephrosis, left: Status: Acute Assessment and plan: As above (4) Malignant neoplasm metastatic from bladder: Status: Acute Assessment and plan: As above (5) Acute exacerbation of chronic obstructive pulmonary disease (COPD): Status: Acute Assessment and plan: Continue bronchodilators. Now off prednisone. He remains on Symbicort and Spiriva along w/ DuoNebs (6) Hypomagnesemia: Status: Acute Assessment and plan: fluctuates, down to 1.7 today from 1.9 yesterday. Patient is on oral supplements.. 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 (8) Type 2 diabetes mellitus: Status: Chronic Assessment and plan: Continue basal bolus insulin with Lantus and NovoLog. Continue meal coverage. Off NPH since he came off prednisone. Glucose is running 95 to 165 today. Qualifiers: Diabetes mellitus intermediate insulin use: without intermediate use Diabetes mellitus complication status: with other specified complication Qualified Code(s): E11.69 - Type 2 diabetes mellitus with other specified complication (9) Essential hypertension: Status: Chronic Assessment and plan: Continue home medications. Subjective Subjective Interval history since last seen: Patient w/ no acute complaints this morning. I informed him that I have been on the phone both w/ the [facility] in [place], [place] as well as [facility] radiology (after failure to speak w/ urology yesterday afternoon despite my calls to [facility]). [facility] does not have bed capacity for transfer and recommended calling tomorrow. [facility] also does not have bed capacity for transfer but interventional radiology did reach out to me an can have him for IR guided left nephrostomy tube if he can be there by 14:30 today. I reviewed his case w/ Marie from IR and he is not on any anticoagulants w/ normal INR and platelets of 550,000. He did have breakfast but will be made NPO for his proceduer which will be at 15:30. He is agreeable to this plan. Exam Narrative Exam Narrative: Thin, cachectic male who is alert and oriented, no acute distress, talking in complete sentences w/ out dyspnea or wheezing Lungs: clear w/ prolonged breath sounds, no rhonchi or wheezing or rales Heart: regular Abdomen: soft, nontender Extremities: no edema Objective Last Vital Signs Temp 36.3 C L 03/31/23 02:59 Pulse 84 03/31/23 02:59 Resp 16 03/31/23 02:59 BP 143/69 H 03/31/23 02:59 Pulse Ox 96 03/31/23 02:59 Laboratory Results - last 24 hr 03/28/23 03/29/23 03/30/23 05:30 17:08 08:05 WBC 44.99 H* RBC 3.99 L Hgb 10.2 L Hct 30.6 L MCV 77 L MCH 25.6 L MCHC 33.3 RDW 22.1 H Plt Count 669 H MPV 8.2 Immature Gran % 0.0 Neutrophils % 95.0 Band Neutrophils % 2 Lymphocytes % 3.0 Monocytes % 0.0 Eosinophils % 0.0 Basophils % 0.0 Nucleated RBC % 0.0 Absolute Neutrophils 43.64 H Absolute Lymphocytes 1.35 Absolute Monocytes 0.00 L Absolute Eosinophils 0.00 Absolute Basophils 0.00 RBC Morphology See Below Anisocytosis 2+ VBG Lactate 1.1 Sodium 129 L Potassium 3.8 Chloride 95 L Carbon Dioxide 26.4 Anion Gap 7.6 BUN 12 Creatinine 0.6 L Est GFR (CKD-EPI 2020) 105.80 Glucose 74 Serum Osmolality 273 L Calcium 9.2 Magnesium 1.9 Total Bilirubin 0.4 AST 20 ALT 16 Alkaline Phosphatase 178 H C-Reactive Protein 2.67 H Total Protein 7.2 Albumin 3.0 L Procalcitonin < 0.1 Urine Osmolality 478 03/31/23 07:05 WBC 39.70 H* RBC 3.85 L Hgb 9.9 L Hct 29.8 L MCV 77 L MCH 25.7 L MCHC 33.2 RDW 22.7 H Plt Count 550 H MPV 8.3 Immature Gran % See Differential Neutrophils % 90.0 Band Neutrophils % 2 Lymphocytes % 5.0 Monocytes % 2.0 Eosinophils % 1.0 Basophils % 0.0 Nucleated RBC % 0.0 Absolute Neutrophils 36.52 H Absolute Lymphocytes 1.99 Absolute Monocytes 0.79 Absolute Eosinophils 0.40 Absolute Basophils 0.00 RBC Morphology Normal Anisocytosis VBG Lactate Sodium 133 L Potassium 3.7 Chloride 96 L Carbon Dioxide 27.2 Anion Gap 9.8 BUN 17 Creatinine 0.8 Est GFR (CKD-EPI 2020) 97.00 Glucose 66 L Serum Osmolality Calcium 9.1 Magnesium 1.7 L Total Bilirubin AST ALT Alkaline Phosphatase C-Reactive Protein Total Protein Albumin Procalcitonin Urine Osmolality Time Spent with Patient Time Spent with Patient: 25-34 minutes Time was spent: preparing to see the patient(eg.review tests), ordering medications,tests, procedures, referring, communicating with other health acute care certified nursing assistant (multiple calls to the [facility] in [facility], [place] and to [facility]), indepentently interpreting results and counseling the patient
[2023-03-31 09:50] LABS: Anisocytosis 2+
--- NOTE | 2023-03-31 09:59 | PDOC.CMPRO ---
Date of service: 03/31/23 Time of Service: 09:59 Care Management Progress Note Progress Note Text Progress Note Text: S/O: Sae was sitting up in bed visiting with family when CM met with him. He was smiling and engaged easily with CM. He informed CM that he will be leaving shortly [facility] to have a nephrostomy tube placed. He had questions about insurance coverage. Since this is [facility]. He is going for a down and back IR procedure and will return to [facility] later this afternoon. Referrals to are SNFs are still pending. The only response so far is from [facility] who declined to offer a bed.\\ A:Jesus is a 68 year old man admitted on with sepsis P:Anticipate Jesus will be transferred to a SNF for short term rehab prior to returning home. Referrals have been sent to [facility], [facility] and [facility]. He will follow up with the facility providers and plan of care. Transportation will be determined by disposition. CM will follow and assess for discharge needs.
[2023-03-31 10:04] VITALS: BP 140/76; PULSE 88; RESP 16; TEMP 36.2; O2SAT 95
[2023-03-31 12:23] VITALS: BP 143/74; PULSE 74; RESP 16; TEMP 37; O2SAT 95
--- NOTE | 2023-03-31 16:31 | PT.INNT ---
Date of service: 03/31/23 Time of Service: 11:23 PT Notes Visit Reasons: Sepsis syndrome, Metastatic bladder cancer Patient refused therapy due to expecting the ambulance crew here any minute for a [id number] procedure which patient describes as a kidney tap.
[2023-03-31 18:20] VITALS: BP 129/79; PULSE 94; RESP 16; TEMP 37.1; O2SAT 93
[2023-03-31] MEDS: Normal Saline Flush 10 ML SYR IVP (18:34)
[2023-03-31] MEDS: Ferrous Sulfate 325 MG TAB PO (20:01)
[2023-03-31] MEDS: Magnesium Oxide 400 MG TAB PO (20:01)
[2023-03-31 21:21] LABS: Legionella Ag Detection Urine Negative (Negative)
[2023-03-31] MEDS: Pantoprazole 20 MG TABCR PO (22:19)
[2023-03-31] MEDS: Insulin Aspart 300 UNITS/3 ML PEN SC (22:23)
[2023-03-31] MEDS: Insulin Glargine 300 UNITS/3 ML PEN 10 UNITS SC (22:25)
[2023-04-01] VITALS (7 sets, daily range): BP systolic 124–143; BP diastolic 66–84; PULSE 80–104; RESP 5–20; TEMP 36.1–37; O2SAT 90–98
[2023-04-01] MEDS: CEFEPIME 2 GM in Normal Saline 100 ML IVPB ×2 (02:26→14:30)
[2023-04-01] MEDS: oxyCODONE 5 MG TAB PO ×6 (02:35→23:02)
[2023-04-01] MEDS: DOXYCYCLINE 100 MG in Normal Saline 100 ML IVPB ×2 (04:05→16:39)
[2023-04-01] MEDS: Albuterol/Ipratropium 3 ML UPD VIAL UPD ×2 (06:34→21:29)
[2023-04-01 07:48] LABS: Abs Immature Grans 0.38 10^3/uL (0.0-0.06); Absolute Eosinophil Count 0.13 10^3/uL (0.0-0.7); Basophils % 0.3; Eosinophils % 0.4; HCT 28.1 % (40.0-50.0); HGB 9.3 g/dL (13.5-17.5); Immature Grans % 1.1; Lymphocytes % 4.2; MCH 25.5 pg (27.0-33.0); MCHC 33.1 % (32.0-36.0); MCV 77 fL (80-95); MPV 8.3 fL (8.0-11.0); Platelet Count 523 10^3/uL (130-400); RBC 3.65 10^6/uL (4.36-5.78); RDW 23.1 % (11.8-14.1); RDW-SD 65.1 fL
[2023-04-01] MEDS: Simvastatin 10 MG TAB PO (07:56)
[2023-04-01] MEDS: Methylphenidate 10 MG TAB 5 MG PO (07:56)
[2023-04-01] MEDS: Multivitamin w/Minerals TAB 1 TAB PO (07:56)
[2023-04-01 08:05] LABS: Absolute Neutrophil Count 30.24 10^3/uL (1.2-6.7)
[2023-04-01 08:06] LABS: Anisocytosis 2+; BUN 16 mg/dL (7-18); CREATININE 0.7 mg/dL (0.70-1.30); Calcium 8.6 mg/dL (8.5-10.1); Chloride 99 mmol/L (98-107); Diff Comment Diff Reviewed; Estimated GFR 100.99 (mL/min/1.73m2); Magnesium 1.5 mg/dL (1.8-2.4); Potassium 3.6 mmol/L (3.5-5.1); Sodium 133 mmol/L (136-145); WBC 33.23 10^3/uL (4.4-10.8)
[2023-04-01 08:09] LABS: Glucose 38 mg/dL (74-106)
[2023-04-01] MEDS: Magnesium Oxide 400 MG TAB PO ×3 (08:10→21:30)
[2023-04-01] MEDS: Tamsulosin 0.4 MG CAPCR PO (08:10)
[2023-04-01] MEDS: guaiFENesin 600 MG TABCR PO ×2 (08:10→21:30)
[2023-04-01] MEDS: Metoprolol 12.5 MG TAB PO ×2 (08:10→21:30)
[2023-04-01] MEDS: Mirabegron 25 MG TABCR PO (08:10)
[2023-04-01] MEDS: Ferrous Sulfate 325 MG TAB PO ×2 (08:10→21:31)
[2023-04-01] MEDS: Dextrose 50%-Water 25 GM/50 ML SYR IVP (08:12)
[2023-04-01] MEDS: Normal Saline Flush 10 ML SYR IVP ×2 (08:19→21:58)
[2023-04-01] MEDS: Ipratropium/Albuterol 4 GM 120 PUFF INH IH ×2 (08:25→15:57)
[2023-04-01] MEDS: Budesonide/Formoterol 160/4.5 6 GM 60 PUFF INH IH ×2 (08:26→21:50)
[2023-04-01] MEDS: Tiotropium Bromide-Respimat 10 PUFF INH 2 PUFF IH (08:26)
[2023-04-01] MEDS: Acetaminophen 325 MG TAB 650 MG PO (10:31)
[2023-04-01] MEDS: Nicotine 14 MG/24 HR PATCH TD (10:32)
[2023-04-01] MEDS: Insulin Aspart 300 UNITS/3 ML PEN SC ×2 (13:08→18:57)
--- NOTE | 2023-04-01 18:25 | PGE_ITS ---
Date of Service Date of service: 04/01/23 Time of Service: 18:25 Assessment and Plan Assessment and plan (1) Sepsis syndrome: Status: Acute Assessment and plan: Patient presented with sepsis syndrome with acute confusion and leukocytosis of 35,000 as well as an elevated lactate of 4.3. However blood and urine cultures have been no growth to date. Left nephrostomy tube was placed yesterday for his left hydronephrosis caused by his bladder mass. I spoke with the transfer center at [facility] who reached out to the laboratory cultures were sent but are pending at this time. Patient remains on cefepime. Vancomycin was stopped as his MRSA screen was negative. Doxycycline has been stopped. (2) Leukocytosis, unspecified: Status: Acute Assessment and plan: WBCs are down to 33,000. Qualifiers: Leukocytosis type: bandemia Qualified Code(s): D72.825 - Bandemia (3) Hydronephrosis, left: Status: Acute Assessment and plan: As above (4) Malignant neoplasm metastatic from bladder: Status: Acute Assessment and plan: As above (5) Acute exacerbation of chronic obstructive pulmonary disease (COPD): Status: Acute Assessment and plan: Continue bronchodilators. Now off prednisone. He remains on Symbicort and Spiriva along w/ DuoNebs (6) Type 2 diabetes mellitus: Status: Chronic Qualifiers: Diabetes mellitus regional intermodal truck driver insulin use: without regional intermodal truck driver use Diabetes mellitus complication status: with other specified complication Qualified Code(s): E11.69 - Type 2 diabetes mellitus with other specified complication (7) Essential hypertension: Status: Chronic Assessment and plan: Continue home medications. Subjective Subjective Interval history since last seen: Jesus denies any acute complaints no back pain or abdominal pain. He is eating his dinner without any difficulty. Left nephrostomy tube is in place draining small amount of sanguinous drainage as well as a lot of light-colored urine. Told Jesus that we are awaiting culture results from [facility]. His only concern is that this morning he had a severe hypoglycemic spell which his blood sugars dropped down to 38. This was treated with an amp of dextrose 50% as well as started on a D10 drip. Blood sugars were monitored hourly until his glucose remained above 100 multiple times. I will decrease his Lantus dose from 10 units nightly down to 5 units. Exam Narrative Exam Narrative: Alert and oriented x 3 no acute distress Lungs are clear to auscultation Heart regular rate and rhythm Abdomen soft nontender nondistended No flank tenderness, left nephrostomy tube intact draining small amount of sanguinous material as well as large medic clear yellow urine Objective Last Vital Signs Temp 36.6 C 04/01/23 15:58 Pulse 95 H 04/01/23 15:58 Resp 18 04/01/23 15:58 BP 137/73 04/01/23 15:58 Pulse Ox 96 04/01/23 15:58 Laboratory Results - last 24 hr 04/01/23 04/01/23 06:15 06:15 WBC 33.23 H* RBC 3.65 L Hgb 9.3 L Hct 28.1 L MCV 77 L MCH 25.5 L MCHC 33.1 RDW 23.1 H Plt Count 523 H MPV 8.3 Immature Gran % 1.1 Neutrophils % 91.0 Lymphocytes % 4.2 Monocytes % 3.0 Eosinophils % 0.4 Basophils % 0.3 Nucleated RBC % 0.0 Absolute Neutrophils 30.24 H Absolute Lymphocytes 1.40 Absolute Monocytes 1.00 H Absolute Eosinophils 0.13 Absolute Basophils 0.10 RBC Morphology See Below Anisocytosis 2+ Sodium 133 L Potassium 3.6 Chloride 99 Carbon Dioxide 26.0 Anion Gap 8.0 BUN 16 Creatinine 0.7 Est GFR (CKD-EPI 2020) 100.99 Glucose 38 L* Calcium 8.6 Magnesium 1.5 L Cancelled Time Spent with Patient Time Spent with Patient: 25-34 minutes Time was spent: preparing to see the patient(eg.review tests), ordering medications,tests, procedures, referring, communicating with other health manager of care, indepentently interpreting results, counseling the patient and care coordination
[2023-04-01] MEDS: Insulin Glargine 300 UNITS/3 ML PEN SC (21:31)
[2023-04-01] MEDS: Pantoprazole 20 MG TABCR PO (21:31)
[2023-04-01 23:28] LABS: Bilirubin Negative (Negative); Blood Large (Negative); Clarity Sl Cloudy (Clear); Glucose Negative (Negative); Ketones Negative (Negative); Leukocyte Esterase Small (Negative); Nitrite Negative (Negative); Urobilinogen 0.2 mg/dL (Up to 0.2)
[2023-04-01 23:46] LABS: C & S Indicated? C&S Done As Ordered; RBC >50 HPF (0-2)
--- NOTE | 2023-04-02 | DI.CT_ITS ---
Exam(s) CT FACIAL W EXAM: CT FACIAL W CLINICAL HISTORY: left upper jaw pain, hx of bladder CA w/ lung mets. TECHNIQUE: Imaging Protocol: Axial computed tomography images with coronal and sagittal reformatted images were created and reviewed. No IV contrast COMPARISON: No exams were available for comparison FINDINGS: MAXILLOFACIAL CT SCAN: No evidence of facial fractures nor fluid in the paranasal sinuses. There is a post inflammatory ret ention cyst measuring 10 x 10 mm in the floor of the left maxillary sinus. No associated fluid level . Other paranasal sinuses are clear. Orbits: Unremarkable. Osseous: No fractures nor significant osseous lesions. TM joints unremarkable. Mandible: No fractures nor significant osseous lesions. No teeth present. No soft tissue abscess is evident. No soft tissue masses. IMPRESSION: No significant focal findings. RADIATION DOSE DELIVERED: 493.15mGy.cm Total DLP DATA REPOSITORY: All CT scans at this facility are submitted to the National Radiology Data Registry (NRDR) Dose Index Registry (DIR) with the [employer] (ACR). RADIATION OPTIMIZATION: All CT scans at this facility use at least one of these dose optimization te chniques: automated exposure control; mA and/or kV adjustment per patient size (includes targeted exa ms where dose is matched to clinical indication); or iterative reconstruction.
[2023-04-02] MEDS: CEFEPIME 2 GM in Normal Saline 100 ML IVPB ×2 (02:15→15:02)
[2023-04-02] MEDS: oxyCODONE 5 MG TAB PO ×6 (03:23→23:11)
[2023-04-02 07:27] LABS: Abs Immature Grans 0.41 10^3/uL (0.0-0.06); Basophils % 0.4; Eosinophils % 0.3; HCT 27.7 % (40.0-50.0); HGB 9.2 g/dL (13.5-17.5); Immature Grans % 1.2; Lymphocytes % 3.6; MCH 25.6 pg (27.0-33.0); MCHC 33.2 % (32.0-36.0); MCV 77 fL (80-95); MPV 8.3 fL (8.0-11.0); Monocytes % 2.5; Platelet Count 491 10^3/uL (130-400); RBC 3.59 10^6/uL (4.36-5.78); RDW-SD 65.9 fL
[2023-04-02 07:36] LABS: Absolute Basophil Count 0.14 10^3/uL (0.0-0.2); Absolute Lymphocyte Count 1.23 10^3/uL (1.2-3.4); Absolute Monocyte Count 0.86 10^3/uL (0.1-0.8); Absolute Neutrophil Count 31.51 10^3/uL (1.2-6.7)
[2023-04-02 07:37] LABS: Anion Gap 10.7 mmol/L (3-11); BUN 17 mg/dL (7-18); CO2 24.3 mmol/L (21.0-32.0); CREATININE 0.8 mg/dL (0.70-1.30); Calcium 9.1 mg/dL (8.5-10.1); Chloride 97 mmol/L (98-107); Glucose 166 mg/dL (74-106); Potassium 3.6 mmol/L (3.5-5.1); Sodium 132 mmol/L (136-145); WBC 34.25 10^3/uL (4.4-10.8)
[2023-04-02 07:38] VITALS: BP 149/79; PULSE 97; RESP 18; TEMP 36.2; O2SAT 100
[2023-04-02 07:45] LABS: Anisocytosis 2+; Diff Comment Diff Reviewed
[2023-04-02 08:09] VITALS: O2SAT 98
[2023-04-02] MEDS: Tiotropium Bromide-Respimat 10 PUFF INH 2 PUFF IH (08:09)
[2023-04-02] MEDS: Budesonide/Formoterol 160/4.5 6 GM 60 PUFF INH IH ×2 (08:09→20:53)
[2023-04-02] MEDS: Tamsulosin 0.4 MG CAPCR PO (08:30)
[2023-04-02] MEDS: Methylphenidate 10 MG TAB 5 MG PO (08:30)
[2023-04-02] MEDS: Metoprolol 12.5 MG TAB PO ×2 (08:30→21:05)
[2023-04-02] MEDS: Mirabegron 25 MG TABCR PO (08:30)
[2023-04-02] MEDS: Multivitamin w/Minerals TAB 1 TAB PO (08:31)
[2023-04-02] MEDS: guaiFENesin 600 MG TABCR PO ×2 (08:31→21:06)
[2023-04-02] MEDS: Ferrous Sulfate 325 MG TAB PO ×2 (08:31→21:06)
[2023-04-02] MEDS: Magnesium Oxide 400 MG TAB PO ×3 (08:31→21:06)
[2023-04-02] MEDS: Nicotine 14 MG/24 HR PATCH TD (08:32)
[2023-04-02] MEDS: Normal Saline Flush 10 ML SYR IVP ×2 (08:34→21:07)
[2023-04-02] MEDS: Insulin Aspart 300 UNITS/3 ML PEN SC ×5 (08:35→21:08)
[2023-04-02 09:36] LABS: Bilirubin Color Interference (Negative); Clarity Cloudy (Clear); Glucose Color Interference mg/dL (Negative); Ketones Color Interference mg/dL (Negative); Leukocyte Esterase Color Interference (Negative); Nitrite Color Interference (Negative); Specific Gravity 1.023 (1.005-1.025); Urobilinogen Color Interference mg/dL (Up to 0.2)
[2023-04-02 09:37] LABS: Blood Color Interference (Negative)
[2023-04-02 09:39] LABS: C & S Indicated? C&S Done As Ordered; RBC >50 HPF (0-2)
[2023-04-02] MEDS: Acetaminophen 325 MG TAB 650 MG PO ×3 (09:43→18:14)
[2023-04-02 10:13] VITALS: PULSE 85; RESP 18; RESP 2; RESP 9; O2SAT 94
[2023-04-02] MEDS: Albuterol/Ipratropium 3 ML UPD VIAL UPD (10:13)
[2023-04-02 10:14] VITALS: PULSE 92; RESP 16; O2SAT 98
[2023-04-02] MEDS: Docusate Sodium 100 MG CAP PO (13:01)
--- NOTE | 2023-04-02 14:45 | PGE_ITS ---
Date of Service Date of service: 04/02/23 Time of Service: 14:45 Assessment and Plan Assessment and plan (1) Sepsis syndrome: Status: Acute Assessment and plan: Patient presented with sepsis syndrome with acute confusion and leukocytosis of 35,000 as well as an elevated lactate of 4.3. However blood and urine cultures have been no growth to date. Left nephrostomy tube was placed two days ago (03/31) and unfortunately despite my giving them an order for UA and cultures none was done. I did order nephrostomy fluid to be sent last night for cultures. Patient remains on cefepime. His sputum is growing Psedomonas, unclear as to whether or not this is just colonization or reflects a bronchitis. HIs CXR on 03/29 did not suggest any pneumonia. If his nephrostomy fluid does not show any infection from the obstruction then I would just empirically cover the Pseudomonas w/ 10 days of Levaquin. (2) Leukocytosis, unspecified: Status: Acute Assessment and plan: WBC persist at 34,000 Qualifiers: Leukocytosis type: bandemia Qualified Code(s): D72.825 - Bandemia (3) Hydronephrosis, left: Status: Acute Assessment and plan: As above, now s/p nephrostomy tube placement (4) Malignant neoplasm metastatic from bladder: Status: Acute Assessment and plan: As above (5) Acute exacerbation of chronic obstructive pulmonary disease (COPD): Status: Acute Assessment and plan: Continue bronchodilators. Now off prednisone. He remains on Symbicort and Spiriva along w/ DuoNebs (6) Type 2 diabetes mellitus: Status: Chronic Assessment and plan: no further hypoglycemia spells Qualifiers: Diabetes mellitus middle or intermediate school principal insulin use: without skilled nursing use Diabetes mellitus complication status: with other specified complication Qualified Code(s): E11.69 - Type 2 diabetes mellitus with other specified complication (7) Essential hypertension: Status: Chronic Assessment and plan: Continue home medications. (8) Pain in gums: Status: Acute Assessment and plan: will get facial CT w/ contrast to evaluate left maxillary gum swelling and pain; add ora gel Subjective Subjective Interval history since last seen: Patient complaining of severe dysuria and passing blood clots. Nephrostomy tube is draining some sanguinous drainage as well but overall nephrostomy fluid is cl earing. Patient reports that he had been passing clots in his urine for some time prior to the procedure. He is also complaining of gum swelling and pain over the left upper jaw. Exam Narrative Exam Narrative: Cachectic elderly male who is alert and oriented, he is tired as he did not sleep well last night ENT: he is edentulous, but has asymmetrical swelling of his upper jaw w/ more prominent on left upper gum w/out purlence to erythema. Lungs: diffusely diminished breath sounds but no rhonchi or wheezing Heart: RRR Abdomen: nondistended, nontender Objective Last Vital Signs Temp 36.2 C L 04/02/23 07:38 Pulse 92 H 04/02/23 10:14 Resp 16 04/02/23 10:14 BP 149/79 H 04/02/23 07:38 Pulse Ox 98 04/02/23 10:14 Laboratory Results - last 24 hr 04/01/23 04/02/23 04/02/23 23:08 06:45 09:21 WBC 34.25 H* RBC 3.59 L Hgb 9.2 L Hct 27.7 L MCV 77 L MCH 25.6 L MCHC 33.2 RDW 23.0 H Plt Count 491 H MPV 8.3 Immature Gran % 1.2 Neutrophils % 92.0 Lymphocytes % 3.6 Monocytes % 2.5 Eosinophils % 0.3 Basophils % 0.4 Nucleated RBC % 0.0 Absolute Neutrophils 31.51 H Absolute Lymphocytes 1.23 Absolute Monocytes 0.86 H Absolute Eosinophils 0.10 Absolute Basophils 0.14 RBC Morphology See Below Anisocytosis 2+ Sodium 132 L Potassium 3.6 Chloride 97 L Carbon Dioxide 24.3 Anion Gap 10.7 BUN 17 Creatinine 0.8 Est GFR (CKD-EPI 2020) 97.00 Glucose 166 H Calcium 9.1 Urine Color Red Red Urine Clarity Sl Cloudy Cloudy Urine pH 7.0 Ur Specific [place] 1.020 1.023 Urine Protein 100 H Color Interference Urine Ketones Negative Color Interference Urine Blood Large H Color Interference Urine Nitrite Negative Color Interference Urine Bilirubin Negative Color Interference Urine Urobilinogen 0.2 Color Interference Ur Leukocyte Esterase Small H Color Interference Urine RBC >50 H >50 H Urine WBC Not Applicable Ur Epithelial Cells Not Applicable Not Applicable Urine Crystals Not Applicable Not Applicable Urine Bacteria Not Applicable Not Applicable Urine Mucus Not Applicable Not Applicable Ur Culture Indicated? C&S Done As Ordered C&S Done As Ordered Urine Glucose Negative Color Interference Time Spent with Patient Time Spent with Patient: 35-49 minutes Time was spent: preparing to see the patient(eg.review tests), ordering medications,tests, procedures, referring, communicating with other health managed care coordinator, indepentently interpreting results, counseling the patient and care coordination
[2023-04-02 14:49] LABS: Lab Add On Test DONE
[2023-04-02 14:59] LABS: Magnesium 1.5 mg/dL (1.8-2.4)
[2023-04-02] MEDS: Oxybutynin 5 MG TAB PO ×2 (15:06→21:06)
[2023-04-02 15:19] VITALS: BP 137/69; PULSE 89; RESP 17; TEMP 36; O2SAT 96
[2023-04-02] MEDS: Normal Saline - Diluent 50 ML VIAL IJ (15:45)
[2023-04-02] MEDS: Omnipaque 350 MG/ML 100 ML BTL IJ (15:46)
--- NOTE | 2023-04-02 15:55 | DI.VRAD_ITS ---
PROCEDURE INFORMATION: Exam: CT Maxillofacial With Contrast Exam date and time: 04/02/2023 3:30 PM Age: 68 years old Clinical indication: Other: Left upper jaw pain, HX bladder CA with lung mets TECHNIQUE: Imaging protocol: Computed tomography of the face with contrast. Radiation optimization: All CT scans at this facility use at least one of these dose optimization techniques: automated exposure control; mA and/or kV adjustment per patient size (includes targeted exams where dose is matched to clinical indication); or iterative reconstruction. Contrast material: OMNI 350; Contrast volume: 100 ml; Contrast route: INTRAVENOUS (IV); COMPARISON: No relevant prior studies available. FINDINGS: Orbital cavities: Orbits are normal. Globes are unremarkable. Bones/joints: No acute fracture. Paranasal sinuses: Normal. No air-fluid levels. Soft tissues: Unremarkable. Dental: Patient is edentulous. IMPRESSION: No acute findings. Dictated and Authenticated by: Wang Mosher MD. Ordering:[facility] Meggan Teague MD
[2023-04-02] MEDS: Polyethylene Glycol 3350 17 GM PACKET PO ×2 (15:57→21:04)
[2023-04-02] MEDS: MAGNESIUM SULFATE 2 GM/50 ML BAG IVPB (17:28)
[2023-04-02] MEDS: oxyCODONE-CR 20 MG TABCR PO (21:05)
[2023-04-02] MEDS: Pantoprazole 20 MG TABCR PO (21:06)
[2023-04-02] MEDS: Simvastatin 10 MG TAB PO (21:06)
[2023-04-02] MEDS: Insulin Glargine 300 UNITS/3 ML PEN SC (21:07)
[2023-04-02 21:15] VITALS: BP 132/71; PULSE 87; RESP 16; TEMP 35.8; O2SAT 92
[2023-04-03] MEDS: CEFEPIME 2 GM in Normal Saline 100 ML IVPB ×2 (01:29→13:24)
[2023-04-03] MEDS: Acetaminophen 325 MG TAB 650 MG PO (02:34)
[2023-04-03] MEDS: oxyCODONE 5 MG TAB PO ×4 (04:08→21:05)
[2023-04-03 06:38] LABS: HCT 23.6 % (40.0-50.0); HGB 7.7 g/dL (13.5-17.5); MCH 25.2 pg (27.0-33.0); MCHC 32.6 % (32.0-36.0); MCV 77 fL (80-95); MPV 8.1 fL (8.0-11.0); Platelet Count 406 10^3/uL (130-400); RBC 3.05 10^6/uL (4.36-5.78); RDW 23.4 % (11.8-14.1); RDW-SD 66.2 fL
[2023-04-03 06:54] LABS: Anion Gap 7.6 mmol/L (3-11); BUN 17 mg/dL (7-18); CO2 26.4 mmol/L (21.0-32.0); CREATININE 0.8 mg/dL (0.70-1.30); Calcium 8.9 mg/dL (8.5-10.1); Chloride 96 mmol/L (98-107); Glucose 211 mg/dL (74-106); Magnesium 1.8 mg/dL (1.8-2.4); Potassium 4.2 mmol/L (3.5-5.1); Sodium 130 mmol/L (136-145)
[2023-04-03 07:17] LABS: Absolute Lymphocyte Count 0.63 10^3/uL (1.2-3.4); Bands % 3
[2023-04-03 07:18] LABS: Absolute Eosinophil Count 0.32 10^3/uL (0.0-0.7); Absolute Monocyte Count 0.63 10^3/uL (0.1-0.8); Anisocytosis 2+; Diff Comment Manual Differential; Hypochromasia 1+
[2023-04-03 07:20] LABS: Polychromasia Present
[2023-04-03 07:21] LABS: Poikilocytes 1+; WBC 31.58 10^3/uL (4.4-10.8)
[2023-04-03 07:32] VITALS: O2SAT 96
[2023-04-03] MEDS: Budesonide/Formoterol 160/4.5 6 GM 60 PUFF INH IH ×2 (07:32→20:20)
[2023-04-03] MEDS: Tiotropium Bromide-Respimat 10 PUFF INH 2 PUFF IH (07:32)
[2023-04-03 07:44] VITALS: BP 151/76; PULSE 97; RESP 18; TEMP 35.9; O2SAT 99
--- NOTE | 2023-04-03 07:59 | PCPN_ITS ---
Date of service: 04/03/23 Time of Service: 07:59 Assessment and Plan Assessment and plan (1) Pain in gums: Status: Acute (2) Leukocytosis, unspecified: Status: Acute Qualifiers: Leukocytosis type: bandemia Qualified Code(s): D72.825 - Bandemia (3) Malignant neoplasm metastatic from bladder: Status: Acute (4) Hyponatremia: Status: Acute Assessment and plan: Unfortunately Jeuss's labs do not look as good as he does today. His hematocrit has dropped. His white count still remains very high. CT scan of his jaw showed no abscess. He wants to pursue treatment or at least know his options for his bladder cancer. He is awaiting placement. We talked about things that he can do to help him to achieve his goals: Eat 3+ meals per day, participate with physical therapy, be socially engaged with his daughter and sister. Will continue to see Sae. He stated that he was happy to find out that if a rehab place will not take him that he can stay at the hospital. I did not confirm his assumptions Subjective Subjective Interval history since last seen: Sae is a 68-year-old man with bladder cancer. He has undergone different interventions since he has been at [facility]. He was cachectic when he came in and extremely weak. He does feel better now he said that his weakness is improving. He is anxious to get to a rehab center so that he can get stronger. Overall he is feeling better. His left lower jaw has been painful and he did have a CT scan scheduled. There is concern that his gums could be the source of his high white count. Exam Narrative Exam Narrative: Cachectic man, smiling, heart rate is controlled. I do hear a systolic murmur. Breathing shallow and some rales especially on the left side. Abdomen is tender. He does have a catheter in place. He seems much more upbeat than the last time I saw him. Urine is dark in color. He does have a catheter in place and also does urinate through his urethra. Both samples are dark in color. Objective Last Vital Signs Temp 96.6 F L 04/03/23 07:44 Pulse 97 H 04/03/23 07:44 Resp 18 04/03/23 07:44 BP 151/76 H 04/03/23 07:44 Pulse Ox 99 04/03/23 07:44 Laboratory Results - last 24 hr 04/02/23 04/02/23 04/03/23 06:45 09:21 06:26 WBC 31.58 H* RBC 3.05 L Hgb 7.7 L Hct 23.6 L MCV 77 L MCH 25.2 L MCHC 32.6 RDW 23.4 H Plt Count 406 H MPV 8.1 Immature Gran % See Differential Neutrophils % 92.0 Band Neutrophils % 3 Lymphocytes % 2.0 Monocytes % 2.0 Eosinophils % 1.0 Basophils % 0.0 Nucleated RBC % 0.0 Absolute Neutrophils 30.00 H Absolute Lymphocytes 0.63 L Absolute Monocytes 0.63 Absolute Eosinophils 0.32 Absolute Basophils 0.00 RBC Morphology See Below Polychromasia Present Hypochromasia 1+ Poikilocytosis 1+ Anisocytosis 2+ Sodium 130 L Potassium 4.2 Chloride 96 L Carbon Dioxide 26.4 Anion Gap 7.6 BUN 17 Creatinine 0.8 Est GFR (CKD-EPI 2020) 97.00 Glucose 211 H Calcium 8.9 Magnesium 1.5 L 1.8 Urine Color Red Urine Clarity Cloudy Urine pH Ur Specific [place] 1.023 Urine Protein Color Interference Urine Ketones Color Interference Urine Blood Color Interference Urine Nitrite Color Interference Urine Bilirubin Color Interference Urine Urobilinogen Color Interference Ur Leukocyte Esterase Color Interference Urine RBC >50 H Urine WBC Not Applicable Ur Epithelial Cells Not Applicable Urine Crystals Not Applicable Urine Bacteria Not Applicable Urine Mucus Not Applicable Ur Culture Indicated? C&S Done As Ordered Urine Glucose Color Interference Add-On Test Request DONE Laboratory Tests 04/01/23 04/03/23 04/03/23 06:15 06:26 06:26 WBC 33.23 H* 31.58 H* Hct Sodium Magnesium 1.8 04/03/23 04/04/23 04/04/23 06:26 06:36 06:36 WBC 28.68 H* Hct 23.6 L Sodium 128 L Magnesium 04/04/23 06:36 WBC Hct 19.3 L* Sodium Magnesium Facial bones MAXILLOFACIAL CT SCAN: No evidence of facial fractures nor fluid in the paranasal sinuses. There is a post inflammatory retention cyst measuring 10 x 10 mm in the floor of the left maxillary sinus. No associated fluid level. Other paranasal sinuses are clear. Orbits: Unremarkable. Osseous: No fractures nor significant osseous lesions. TM joints unremarkable. Mandible: No fractures nor significant osseous lesions. No teeth present. No soft tissue abscess is evident. No soft tissue masses. IMPRESSION: No significant focal findings.
[2023-04-03] MEDS: oxyCODONE-CR 20 MG TABCR PO ×2 (08:24→20:43)
[2023-04-03] MEDS: Metoprolol 12.5 MG TAB PO ×2 (08:24→20:43)
[2023-04-03] MEDS: Oxybutynin 5 MG TAB PO ×2 (08:25→20:44)
[2023-04-03] MEDS: Tamsulosin 0.4 MG CAPCR PO (08:25)
[2023-04-03] MEDS: guaiFENesin 600 MG TABCR PO ×2 (08:26→20:44)
[2023-04-03] MEDS: Multivitamin w/Minerals TAB 1 TAB PO (08:26)
[2023-04-03] MEDS: Magnesium Oxide 400 MG TAB PO ×3 (08:26→20:44)
[2023-04-03] MEDS: Methylphenidate 10 MG TAB 5 MG PO (08:27)
[2023-04-03] MEDS: Ferrous Sulfate 325 MG TAB PO ×2 (08:27→20:43)
[2023-04-03] MEDS: Normal Saline Flush 10 ML SYR IVP ×2 (08:28→20:46)
[2023-04-03] MEDS: Nicotine 14 MG/24 HR PATCH TD (08:28)
[2023-04-03] MEDS: Insulin Aspart 300 UNITS/3 ML PEN SC ×3 (08:28→17:04)
[2023-04-03] MEDS: Polyethylene Glycol 3350 17 GM PACKET PO ×2 (08:30→20:42)
--- NOTE | 2023-04-03 08:57 | CMPROGNOTE_ITS ---
Date of service: 04/03/23 Time of Service: 08:57 Care Management Progress Note Progress Note Text Progress Note Text: S/O: Sae was sitting up in bed when CM met with him. He appeared to be in good spirits and informed CM that his pain is muchg better controlled. Over the weekend there were issues with his home med list and he was not receiving his long acting Oxycontin. CM informed Sae that no bed offers have been received. [facility] declined him, [facility] no beds and [facility] has not responded. Sae requested that CM contact his daughter to choose more facilities to send referrals to. :Jesus is a 68 year old man admitted on with sepsis P:Anticipate Jesus will be transferred to a SNF for short term rehab prior to returning home. Referrals have been sent to [facility], [facility] and [facility]. He will follow up with the facility providers and plan of care. Transportation will be determined by disposition. CM will follow and assess for discharge needs.
--- NOTE | 2023-04-03 09:37 | W.PM.PROGNOT ---
Date of Service Date of service: 04/03/23 Time of Service: 09:37 Assessment and Plan Assessment and plan (1) Septic shock: Status: Acute Assessment and plan: -On admission patient met criteria for septic shock with a white blood cell count of 35, respiratory rate greater than 20, heart rate greater than 90, infectious encephalopathy, and an initial lactic acid of 4.3 -Septic shock pathology has resolved with normalization of lactic acid and return to mental status baseline -However, thus far source of infection has not been identified though it is likely due to nephrostomy tube -Currently waiting on nephrostomy tube culture results -Sputum has grown Pseudomonas though patient has not had any respiratory symptoms and chest x-ray is without any acute findings -Patient currently on cefepime, continue to treat for Pseudomonas will transition to 10 days of Levaquin (2) Leukocytosis, unspecified: Status: Acute Assessment and plan: WBC persist at 34,000, may be due to combination of septic shock and steroids for COPD -Will continue to monitor Qualifiers: Leukocytosis type: bandemia Qualified Code(s): D72.825 - Bandemia (3) Hydronephrosis, left: Status: Acute Assessment and plan: -As above, now s/p nephrostomy tube placement (4) Malignant neoplasm metastatic from bladder: Status: Acute Assessment and plan: -As above (5) Acute exacerbation of chronic obstructive pulmonary disease (COPD): Status: Acute Assessment and plan: -Continue bronchodilators. -Now off prednisone. -continue Symbicort and Spiriva along w/ DuoNebs (6) Type 2 diabetes mellitus: Status: Chronic Assessment and plan: -no further hypoglycemia spells Qualifiers: Diabetes mellitus ad terminal makeup operator insulin use: without ad terminal makeup operator use Diabetes mellitus complication status: with other specified complication Qualified Code(s): E11.69 - Type 2 diabetes mellitus with other specified complication (7) Essential hypertension: Status: Chronic Assessment and plan: -Continue home medications. (8) Pain in gums: Status: Acute Assessment and plan: -facial CT w/ contrast did not show any acute findings Continue ora gel Subjective Subjective Interval history since last seen: Patient states that he is feeling well today. He also understands the plan to wait for cultures from his nephrostomy tube in an attempt to identify the source of his infection and septic shock. Exam Narrative Exam Narrative: Well-appearing older gentleman laying in bed in no acute distress, ANO x 4, heart regular rhythm, lungs clear to auscultation bilaterally, abdomen soft, nontender, nondistended, nephrostomy tube in place draining blood tinged urine Objective Last Vital Signs Temp 96.6 F L 04/03/23 07:44 Pulse 97 H 04/03/23 07:44 Resp 18 04/03/23 07:44 BP 151/76 H 04/03/23 07:44 Pulse Ox 99 04/03/23 07:44 Laboratory Results - last 24 hr 03/30/23 04/02/23 04/02/23 12:05 06:45 09:21 WBC RBC Hgb Hct MCV MCH MCHC RDW Plt Count MPV Immature Gran % Neutrophils % Band Neutrophils % Lymphocytes % Monocytes % Eosinophils % Basophils % Nucleated RBC % Absolute Neutrophils Absolute Lymphocytes Absolute Monocytes Absolute Eosinophils Absolute Basophils RBC Morphology Polychromasia Hypochromasia Poikilocytosis Anisocytosis Sodium Potassium Chloride Carbon Dioxide Anion Gap BUN Creatinine Est GFR (CKD-EPI 2020) Glucose Calcium Magnesium 1.5 L Urine Color Red Urine Clarity Cloudy Urine pH Ur Specific [place] 1.023 Urine Protein Color Interference Urine Ketones Color Interference Urine Blood Color Interference Urine Nitrite Color Interference Urine Bilirubin Color Interference Urine Urobilinogen Color Interference Ur Leukocyte Esterase Color Interference Urine RBC >50 H Urine WBC Not Applicable Ur Epithelial Cells Not Applicable Urine Crystals Not Applicable Urine Bacteria Not Applicable Urine Mucus Not Applicable Ur Culture Indicated? C&S Done As Ordered Urine Glucose Color Interference Urine Legionella Ag Negative Add-On Test Request DONE 04/03/23 06:26 WBC 31.58 H* RBC 3.05 L Hgb 7.7 L Hct 23.6 L MCV 77 L MCH 25.2 L MCHC 32.6 RDW 23.4 H Plt Count 406 H MPV 8.1 Immature Gran % See Differential Neutrophils % 92.0 Band Neutrophils % 3 Lymphocytes % 2.0 Monocytes % 2.0 Eosinophils % 1.0 Basophils % 0.0 Nucleated RBC % 0.0 Absolute Neutrophils 30.00 H Absolute Lymphocytes 0.63 L Absolute Monocytes 0.63 Absolute Eosinophils 0.32 Absolute Basophils 0.00 RBC Morphology See Below Polychromasia Present Hypochromasia 1+ Poikilocytosis 1+ Anisocytosis 2+ Sodium 130 L Potassium 4.2 Chloride 96 L Carbon Dioxide 26.4 Anion Gap 7.6 BUN 17 Creatinine 0.8 Est GFR (CKD-EPI 2020) 97.00 Glucose 211 H Calcium 8.9 Magnesium 1.8 Urine Color Urine Clarity Urine pH Ur Specific [place] Urine Protein Urine Ketones Urine Blood Urine Nitrite Urine Bilirubin Urine Urobilinogen Ur Leukocyte Esterase Urine RBC Urine WBC Ur Epithelial Cells Urine Crystals Urine Bacteria Urine Mucus Ur Culture Indicated? Urine Glucose Urine Legionella Ag Add-On Test Request Time Spent with Patient Time Spent with Patient: >50 minutes Time was spent: preparing to see the patient(eg.review tests), obtaining and/or reviewing separately otained hiistory, ordering medications,tests, procedures, referring, communicating with other health healthcare social worker, indepentently interpreting results, counseling the patient and care coordination
[2023-04-03 11:06] LABS: Microcytosis 1+
[2023-04-03 11:13] LABS: Leukemia/Lymphoma by FC (Blood (See below)
[2023-04-03 15:37] VITALS: BP 127/74; PULSE 98; RESP 17; TEMP 36.4; O2SAT 97
[2023-04-03 20:09] VITALS: BP 140/83; PULSE 101; RESP 26; TEMP 36.7; O2SAT 97
[2023-04-03] MEDS: Docusate Sodium 100 MG CAP PO (20:43)
[2023-04-03] MEDS: Simvastatin 10 MG TAB PO (20:44)
[2023-04-03] MEDS: Pantoprazole 20 MG TABCR PO (20:44)
[2023-04-03 20:55] VITALS: RESP 22
[2023-04-03] MEDS: Melatonin 3 MG TAB PO (22:08)
[2023-04-03 22:51] VITALS: BP 101/67; PULSE 76; RESP 17; TEMP 36.3; O2SAT 91
[2023-04-04] VITALS (18 sets, daily range): BP systolic 110–161; BP diastolic 65–82; PULSE 78–102; RESP 2–40; TEMP 36.1–36.9; O2SAT 89–96
[2023-04-04] MEDS: CEFEPIME 2 GM in Normal Saline 100 ML IVPB ×2 (02:28→13:01)
[2023-04-04] MEDS: Normal Saline Flush 10 ML SYR IVP ×3 (02:30→19:46)
[2023-04-04] MEDS: oxyCODONE 5 MG TAB PO ×6 (02:30→19:46)
[2023-04-04] MEDS: Acetaminophen 325 MG TAB 650 MG PO (05:01)
[2023-04-04 06:55] LABS: MCH 26.1 pg (27.0-33.0); MCHC 34.2 % (32.0-36.0); MCV 76 fL (80-95); MPV 8.4 fL (8.0-11.0); Platelet Count 397 10^3/uL (130-400); RBC 2.53 10^6/uL (4.36-5.78); RDW-SD 63.8 fL
[2023-04-04 07:03] LABS: HCT 19.3 % (40.0-50.0); HGB 6.6 g/dL (13.5-17.5); WBC 28.68 10^3/uL (4.4-10.8)
[2023-04-04 07:04] LABS: Anion Gap 7.8 mmol/L (3-11); BUN 17 mg/dL (7-18); CO2 24.2 mmol/L (21.0-32.0); CREATININE 0.8 mg/dL (0.70-1.30); Calcium 8.5 mg/dL (8.5-10.1); Chloride 96 mmol/L (98-107); Glucose 223 mg/dL (74-106); Potassium 4.4 mmol/L (3.5-5.1); Sodium 128 mmol/L (136-145)
[2023-04-04 07:24] LABS: RDW 23.1 % (11.8-14.1)
[2023-04-04] MEDS: Budesonide/Formoterol 160/4.5 6 GM 60 PUFF INH IH ×2 (07:54→19:59)
[2023-04-04] MEDS: Tiotropium Bromide-Respimat 10 PUFF INH 2 PUFF IH (07:54)
--- NOTE | 2023-04-04 08:51 | PDOC.CMPRO ---
Date of service: 04/04/23 Time of Service: 08:51 Care Management Progress Note Progress Note Text Progress Note Text: S/O: Jesus was lying in bed when CM met with him. He stated that he has had a bad morning because he was not able to sleep well last night, and people keep waking him up, coming into his room frequently. CM discussed his plan, including additional referrals being sent to facilities for short term rehab. CM will continue to follow. A: Jesus is a 68 year old man admitted on with sepsis P: Anticipate Jesus will be transferred to a SNF for short term rehab prior to returning home. Referrals have been sent to [facility], [facility], [facility], [facility] and [facility]. He will follow up with the facility providers and plan of care. Transportation will be determined by disposition. CM will follow and assess for discharge needs.
[2023-04-04] MEDS: Insulin Aspart 300 UNITS/3 ML PEN SC ×3 (09:36→21:11)
[2023-04-04] MEDS: Multivitamin w/Minerals TAB 1 TAB PO (09:43)
[2023-04-04] MEDS: Methylphenidate 10 MG TAB 5 MG PO (09:43)
[2023-04-04] MEDS: Oxybutynin 5 MG TAB PO ×2 (09:44→21:00)
[2023-04-04] MEDS: guaiFENesin 600 MG TABCR PO ×2 (09:44→21:01)
[2023-04-04] MEDS: oxyCODONE-CR 20 MG TABCR PO ×2 (09:45→21:00)
[2023-04-04] MEDS: Ferrous Sulfate 325 MG TAB PO ×2 (09:47→21:01)
[2023-04-04] MEDS: Tamsulosin 0.4 MG CAPCR PO (09:47)
[2023-04-04] MEDS: Metoprolol 12.5 MG TAB PO ×2 (09:48→21:00)
[2023-04-04] MEDS: Magnesium Oxide 400 MG TAB PO ×3 (09:48→21:00)
[2023-04-04] MEDS: Nicotine 14 MG/24 HR PATCH TD (09:49)
[2023-04-04] MEDS: Polyethylene Glycol 3350 17 GM PACKET PO ×2 (09:51→21:01)
--- NOTE | 2023-04-04 11:56 | PGE_ITS ---
Date of Service Date of service: 04/04/23 Time of Service: 11:56 Assessment and Plan Assessment and plan (1) Septic shock: Status: Acute Assessment and plan: -On admission patient met criteria for septic shock with a white blood cell count of 35, respiratory rate greater than 20, heart rate greater than 90, infectious encephalopathy, and an initial lactic acid of 4.3 -Septic shock pathology has resolved with normalization of lactic acid and return to mental status baseline -However, thus far source of infection has not been identified though it is likely due to nephrostomy tube -Currently waiting on nephrostomy tube culture results -Sputum has grown Pseudomonas though patient has not had any respiratory symptoms and chest x-ray is without any acute findings -Patient currently on cefepime, continue to treat for Pseudomonas will transition to 10 days of Levaquin (2) Leukocytosis, unspecified: Status: Acute Assessment and plan: -WBC had persisted at 34,000, may be due to combination of septic shock and steroids for COPD -WBC down to 28K on 04/04 -Will continue to monitor Qualifiers: Leukocytosis type: bandemia Qualified Code(s): D72.825 - Bandemia (3) Hydronephrosis, left: Status: Acute Assessment and plan: -As above, now s/p nephrostomy tube placement (4) Malignant neoplasm metastatic from bladder: Status: Acute Assessment and plan: -As above (5) Acute exacerbation of chronic obstructive pulmonary disease (COPD): Status: Acute Assessment and plan: -Continue bronchodilators. -Now off prednisone. -continue Symbicort and Spiriva along w/ DuoNebs (6) Type 2 diabetes mellitus: Status: Chronic Assessment and plan: -hypoglycemic overnight 04/03, SSI decreased to sensitive Qualifiers: Diabetes mellitus intermediate card tender insulin use: without intermediate card tender use Diabetes mellitus complication status: with other specified complication Qualified Code(s): E11.69 - Type 2 diabetes mellitus with other specified complication (7) Essential hypertension: Status: Chronic Assessment and plan: -Continue home medications. (8) Pain in gums: Status: Acute Assessment and plan: -facial CT w/ contrast did not show any acute findings Continue ora gel Subjective Subjective Interval history since last seen: Patient states that he is feeling well today. He continues to understands the plan to wait for cultures from his nephrostomy tube in an attempt to identify the source of his infection and septic shock. Exam Narrative Exam Narrative: Well-appearing older gentleman laying in bed in no acute distress, ANO x 4, heart regular rhythm, lungs clear to auscultation bilaterally, abdomen soft, nontender, nondistended, nephrostomy tube in place draining blood tinged urine Objective Last Vital Signs Temp 98.1 F 04/04/23 09:51 Pulse 102 H 04/04/23 08:22 Resp 30 H 04/04/23 08:22 BP 110/68 04/04/23 08:22 Pulse Ox 91 L 04/04/23 08:22 Laboratory Results - last 24 hr 03/30/23 04/04/23 12:05 06:36 WBC 28.68 H* RBC 2.53 L Hgb 6.6 L* Hct 19.3 L* MCV 76 L MCH 26.1 L MCHC 34.2 RDW 23.1 H Plt Count 397 MPV 8.4 Sodium 128 L Potassium 4.4 Chloride 96 L Carbon Dioxide 24.2 Anion Gap 7.8 BUN 17 Creatinine 0.8 Est GFR (CKD-EPI 2020) 97.00 Glucose 223 H Calcium 8.5 Ur Strep pneumoniae Ag TNP Time Spent with Patient Time Spent with Patient: >50 minutes Time was spent: preparing to see the patient(eg.review tests), obtaining and/or reviewing separately otained hiistory, ordering medications,tests, procedures, referring, communicating with other health patient care associate, indepentently interpreting results, counseling the patient and care coordination
--- NOTE | 2023-04-04 12:02 | NT_ITS ---
Date of service: 04/04/23 Time of Service: 11:39 PT Notes Visit Reasons: Sepsis syndrome, Metastatic bladder cancer Patient refuses therapy this morning. Abruptly states I'm sleeping. 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 I'm sleeping. Reports being agreeable to this clinician checking back in the afternoon.
[2023-04-04 12:26] LABS: HCT 19.1 % (40.0-50.0); HGB 6.3 g/dL (13.5-17.5)
[2023-04-04 19:27] LABS: HCT 25.4 % (40.0-50.0); HGB 8.5 g/dL (13.5-17.5)
[2023-04-04] MEDS: Albuterol/Ipratropium 3 ML UPD VIAL UPD (19:58)
[2023-04-04] MEDS: Simvastatin 10 MG TAB PO (21:00)
[2023-04-04] MEDS: Pantoprazole 20 MG TABCR PO (21:01)
[2023-04-04] MEDS: Melatonin 3 MG TAB PO (21:01)
[2023-04-04] MEDS: Docusate Sodium 100 MG CAP PO (21:01)
[2023-04-04] MEDS: Insulin Glargine 300 UNITS/3 ML PEN SC (21:10)
[2023-04-05] VITALS (8 sets, daily range): BP systolic 124–148; BP diastolic 69–79; PULSE 77–99; RESP 2–22; TEMP 36.1–36.5; O2SAT 92–98
[2023-04-05] MEDS: oxyCODONE 5 MG TAB PO ×5 (00:16→20:38)
[2023-04-05] MEDS: CEFEPIME 2 GM in Normal Saline 100 ML IVPB ×2 (01:34→14:13)
[2023-04-05] MEDS: Normal Saline Flush 10 ML SYR IVP ×3 (01:34→20:12)
[2023-04-05] MEDS: Milk of Magnesia 30 ML CUP PO (06:10)
[2023-04-05 06:46] LABS: HCT 24.5 % (40.0-50.0); HGB 8.4 g/dL (13.5-17.5); MCH 26.8 pg (27.0-33.0); MCHC 34.3 % (32.0-36.0); MCV 78 fL (80-95); MPV 8.3 fL (8.0-11.0); Platelet Count 411 10^3/uL (130-400); RBC 3.13 10^6/uL (4.36-5.78); RDW-SD 63.2 fL
[2023-04-05 06:49] LABS: RDW 21.8 % (11.8-14.1)
[2023-04-05 06:50] LABS: WBC 36.08 10^3/uL (4.4-10.8)
[2023-04-05] MEDS: Tiotropium Bromide-Respimat 10 PUFF INH 2 PUFF IH (07:41)
[2023-04-05] MEDS: Budesonide/Formoterol 160/4.5 6 GM 60 PUFF INH IH ×2 (07:41→21:12)
[2023-04-05] MEDS: Polyethylene Glycol 3350 17 GM PACKET PO ×2 (08:03→20:12)
[2023-04-05] MEDS: Nicotine 14 MG/24 HR PATCH TD (08:03)
[2023-04-05] MEDS: guaiFENesin 600 MG TABCR PO ×2 (08:05→20:12)
[2023-04-05] MEDS: Ferrous Sulfate 325 MG TAB PO ×2 (08:05→20:12)
[2023-04-05] MEDS: Tamsulosin 0.4 MG CAPCR PO (08:05)
[2023-04-05] MEDS: Metoprolol 12.5 MG TAB PO ×2 (08:05→20:11)
[2023-04-05] MEDS: oxyCODONE-CR 20 MG TABCR PO ×2 (08:05→20:11)
[2023-04-05] MEDS: Multivitamin w/Minerals TAB 1 TAB PO (08:05)
[2023-04-05] MEDS: Magnesium Oxide 400 MG TAB PO ×3 (08:05→20:12)
[2023-04-05] MEDS: Methylphenidate 10 MG TAB 5 MG PO (08:06)
[2023-04-05] MEDS: Oxybutynin 5 MG TAB PO ×2 (08:06→20:11)
[2023-04-05] MEDS: Albuterol 2.5 MG/3 ML INH SOLN VIAL UPD (09:04)
--- NOTE | 2023-04-05 10:00 | DI.RAD_ITS ---
Exam(s) XR PORTABLE CHEST AP EXAM: XR PORTABLE CHEST AP CLINICAL HISTORY: +sob. TECHNIQUE: 2D digital imaging was performed. COMPARISON: CR XR PORTABLE CHEST AP from 03/29/2023 FINDINGS: Single AP portable view. Heart size is upper normal. The mediastinum is not widened. Again noted is bilateral hyperinflation and COPD findings. No new infiltrates nor pleural effusions and there appears to have been some improvement in the appearance of the lung bases when compared to the chest x-ray of 03/29/2023. No evidence of pulmonary edema. IMPRESSION: Hyperinflation. COPD. Improved appearance of the lung bases when compared to 03/29/2023. No conflu ent infiltrates nor pleural effusions on today's study. DATA REPOSITORY: RADIATION DOSE DELIVERED:
--- NOTE | 2023-04-05 10:18 | PTTR_ITS ---
Date of service: 04/05/23 Time of Service: 09:45 PT Notes Visit Reasons: Sepsis syndrome, Metastatic bladder cancer Inpatient Physical Therapy Treatment Note [facility] Date: 04/05/23 PRECAUTIONS: Fall, standard, activity as tolerated. SUBJECTIVE: Patient reports feeling good, although acknowledges that he has felt better. AFTERNOON: Patient reports feeling frustrated, is trying to get some business done with [employer] and feels that he is being given the runaround. OBJECTIVE: Supine in bed, agreeable to therapy x2 ? PAIN: none reported VITALS: ? Pre-Treatment: SaO2 91% on 1L/min supplemental O2 via nasal cannula AFTERNOON: SaO2 96% on 1L/min O2, hr 95 bpm ? Post-Treatment: SaO2 92%, hr 95 bpm AFTERNOON: SaO2 93%, HR 96 bpm ? BED MOBILITY/TRANSFERS? Rolling L/R: independent Supine-sit: independent ? Sit-supine: independent ? Sit-stand: independent ? Stand-sit: independent ? Bed-Chair: SBA ? Chair-bed: SBA Provided skilled cues and instruction on performance and technique throughout. ? Therapeutic Exercises (52546d9): Direct one-on-one instruction in therapeutic exercises to develop strength, endurance, range of motion and flexibility. ? Exercises: * instruction provided on PLB, diaphragmatic breathing Ambulation ? Assistive Device: FWW AFTERNOON: FWW ? Weight bearing: full Assist: SBA with wheelchair follow, assistance managing O2 tank ? Distance:? 300 feet, 1 seated rest with HR spiking to 128, taking >5 minutes to recover ?AFTERNOON: 600 feet with 4 seated rests, emphasis on slow steady pace, controlled breathing and monitoring HR. Patient desats briefly after first 100 feet to 85%, recovers to 94% in <2 minutes. Peak HR 111 bpm, takes >3 minutes to recover to 94 bpm. ? Deviation: Patient's gait is largely unremarkable with FWW, however, patient reports that at baseline he required neither AD nor supplemental O2.? Provided skilled instruction in proper exercise performance Provided skilled manual cues to facilitate proper muscle recruitment and/or form. ASSESSMENT:? Patient is motivated to participate in therapy, wishes to gain strength as quickly as possible in order to qualify for radiation treatment. PLAN: Continue global strengthening per plan of care until patient is medically cleared for discharge and obtains safe discharge plan. Patient would benefit from skilled rehab stay in order to facilitate optimal outcomes. TREATMENT CODE/TIME: 30 minutes beginning at 9:45 and 37 minutes beginning at 13:28 for a total of 67 minutes today.
--- NOTE | 2023-04-05 11:27 | W.PM.PROGNOT ---
Date of Service Date of service: 04/05/23 Time of Service: 11:27 Assessment and Plan Assessment and plan (1) Septic shock: Status: Acute Assessment and plan: -On admission patient met criteria for septic shock with a white blood cell count of 35, respiratory rate greater than 20, heart rate greater than 90, infectious encephalopathy, and an initial lactic acid of 4.3 -Septic shock pathology has resolved with normalization of lactic acid and return to mental status baseline -However, thus far source of infection has not been identified though it is likely due to nephrostomy tube -nephrostomy tube culture results negative -Sputum has grown Pseudomonas though patient has not had any respiratory symptoms and chest x-ray is without any acute findings -Patient currently on cefepime, continue to treat for Pseudomonas and will transition to 10 days of Levaquin upon discharge (2) Leukocytosis, unspecified: Status: Acute Assessment and plan: -WBC had persisted at 34,000, may be due to combination of septic shock and steroids for COPD -WBC down to 28K on 04/04, but back up to 32K on 04/05 possibly due to transfusion as noted below -Will continue to monitor Qualifiers: Leukocytosis type: bandemia Qualified Code(s): D72.825 - Bandemia (3) Blood loss anemia: Status: Acute Assessment and plan: -secondary to bladder CA and nephrostomy tube -Hb yesterday down to 6.6, patient now s/p 1U PRBCs -AM Hb 8.4, will continue to monitor (4) Hydronephrosis, left: Status: Acute Assessment and plan: -As above, now s/p nephrostomy tube placement (5) Malignant neoplasm metastatic from bladder: Status: Acute Assessment and plan: -As above (6) Acute exacerbation of chronic obstructive pulmonary disease (COPD): Status: Acute Assessment and plan: -Continue bronchodilators. -Now off prednisone. -continue Symbicort and Spiriva along w/ DuoNebs (7) Type 2 diabetes mellitus: Status: Chronic Assessment and plan: -hypoglycemic overnight 04/03, SSI decreased to sensitive Qualifiers: Diabetes mellitus technician terminal and repeater insulin use: without half-way use Diabetes mellitus complication status: with other specified complication Qualified Code(s): E11.69 - Type 2 diabetes mellitus with other specified complication (8) Essential hypertension: Status: Chronic Assessment and plan: -Continue home medications. (9) Pain in gums: Status: Acute Assessment and plan: -facial CT w/ contrast did not show any acute findings Continue ora gel Subjective Subjective Interval history since last seen: Patient states that he is feeling well today how ever he was short of breath earlier this morning and did require 1L NC, though his shortness of breath and hypoxia was transient and has since resolved. Exam Narrative Exam Narrative: Well-appearing older gentleman laying in bed in no acute distress, ANO x 4, heart regular rhythm, lungs clear to auscultation bilaterally, abdomen soft, nontender, nondistended, nephrostomy tube in place draining blood tinged urine Objective Last Vital Signs Temp 97.7 F 04/05/23 07:39 Pulse 92 H 04/05/23 09:04 Resp 16 04/05/23 09:04 BP 138/72 04/05/23 07:39 Pulse Ox 92 04/05/23 09:04 Laboratory Results - last 24 hr 03/28/23 04/04/23 04/04/23 07:55 12:10 13:10 WBC RBC Hgb 6.3 L* Hct 19.1 L* MCV MCH MCHC RDW Plt Count MPV Patient ABO/Rh B Positive Antibody Screen NEGATIVE Crossmatch See Detail See Detail 04/04/23 04/05/23 19:20 06:22 WBC 36.08 H* RBC 3.13 L Hgb 8.5 L D 8.4 L Hct 25.4 L 24.5 L MCV 78 L MCH 26.8 L MCHC 34.3 RDW 21.8 H Plt Count 411 H MPV 8.3 Patient ABO/Rh Antibody Screen Crossmatch Time Spent with Patient Time Spent with Patient: >50 minutes Time was spent: preparing to see the patient(eg.review tests), obtaining and/or reviewing separately otained hiistory, ordering medications,tests, procedures, referring, communicating with other health healthcare recruiter, indepentently interpreting results, counseling the patient and care coordination
[2023-04-05] MEDS: Insulin Aspart 300 UNITS/3 ML PEN SC (11:51)
--- NOTE | 2023-04-05 16:18 | PDOC.CMPRO ---
Date of service: 04/05/23 Time of Service: 16:18 Care Management Progress Note Progress Note Text Progress Note Text: S/O: Sae was sitting up in bed when CM met with him. He was awake and alert and engaged readily with CM. Sae declined to work with PT yesterday as he was anemic and fatigued and a technical error resulted in his not being seen by PT over the weekend. CM spoke to Sae about the importance of participating with PT as he needs to get stronger and admission to a rehab facility is dependent on his willingness and ability to participate in physical therapy. He stated he understood and worked well with PT both morning and afternoon today. No bed offers have been received to date. A: Jessu is a 68 year old man admitted on with sepsis P: Anticipate Jesus will be transferred to a SNF for short term rehab prior to returning home. Referrals had been sent to [place], [facility], [facility], [facility] and [facility]. [facility] declined to offer him a bed and the others did not have bed availability. Additional referrals were sent to all of the [facility] and to [place]. If accepted at a SNF, Sae will follow up with the facility providers and plan of care. Transportation will be determined by disposition. CM will follow and assess for discharge needs.
--- NOTE | 2023-04-05 16:43 | CHAPLAIN ---
I had a brief visit with Sae shortly after he had walked with PT and he was tired from that. I will try again later.
[2023-04-05] MEDS: Melatonin 3 MG TAB PO (20:11)
[2023-04-05] MEDS: Simvastatin 10 MG TAB PO (20:11)
[2023-04-05] MEDS: Docusate Sodium 100 MG CAP PO (20:12)
[2023-04-05] MEDS: Pantoprazole 20 MG TABCR PO (20:12)
[2023-04-05] MEDS: Albuterol/Ipratropium 3 ML UPD VIAL UPD (20:37)
[2023-04-05] MEDS: Insulin Glargine 300 UNITS/3 ML PEN SC (21:16)
[2023-04-06] VITALS (7 sets, daily range): BP systolic 119–158; BP diastolic 68–79; PULSE 95–101; RESP 2–22; TEMP 36.2–36.7; O2SAT 92–98
[2023-04-06] MEDS: oxyCODONE 5 MG TAB PO ×5 (00:39→22:25)
[2023-04-06] MEDS: Normal Saline Flush 10 ML SYR IVP ×3 (00:40→21:25)
[2023-04-06] MEDS: Acetaminophen 325 MG TAB 650 MG PO (01:22)
[2023-04-06] MEDS: CEFEPIME 2 GM in Normal Saline 100 ML IVPB ×2 (02:13→13:19)
[2023-04-06] MEDS: Budesonide/Formoterol 160/4.5 6 GM 60 PUFF INH IH ×2 (07:50→20:39)
[2023-04-06] MEDS: Albuterol/Ipratropium 3 ML UPD VIAL UPD ×2 (07:51→20:39)
[2023-04-06] MEDS: Tiotropium Bromide-Respimat 10 PUFF INH 2 PUFF IH (07:51)
[2023-04-06] MEDS: Nicotine 14 MG/24 HR PATCH TD (08:28)
[2023-04-06] MEDS: Polyethylene Glycol 3350 17 GM PACKET PO ×2 (08:28→21:26)
[2023-04-06] MEDS: Multivitamin w/Minerals TAB 1 TAB PO (08:29)
[2023-04-06] MEDS: Oxybutynin 5 MG TAB PO ×2 (08:29→21:23)
[2023-04-06] MEDS: Metoprolol 12.5 MG TAB PO ×2 (08:29→21:22)
[2023-04-06] MEDS: oxyCODONE-CR 20 MG TABCR PO ×2 (08:29→21:22)
[2023-04-06] MEDS: Magnesium Oxide 400 MG TAB PO ×3 (08:29→21:23)
[2023-04-06] MEDS: Tamsulosin 0.4 MG CAPCR PO (08:29)
[2023-04-06] MEDS: guaiFENesin 600 MG TABCR PO ×2 (08:29→21:24)
[2023-04-06] MEDS: Insulin Aspart 300 UNITS/3 ML PEN SC ×3 (08:30→22:25)
[2023-04-06] MEDS: Methylphenidate 10 MG TAB 5 MG PO (08:30)
[2023-04-06] MEDS: Ferrous Sulfate 325 MG TAB PO ×2 (08:30→21:24)
--- NOTE | 2023-04-06 08:35 | CMPROGNOTE_ITS ---
Date of service: 04/06/23 Time of Service: 08:35 Care Management Progress Note Progress Note Text Progress Note Text: S/O: Sae was sitting up in bed when CM met with him. He was pleasant and engaged easily with CM.There is a possibility that Sae may get a bed offer soon from one of the [facility] facilities in [place]. It is in [place], [place] and Sae has agreed to accept the offer if received. He asked CM to inquire if his nephrostomy tube could be removed prior to transfer. CM discussed this with the provider who indicated that it must stay in place for the time being and that he will have follow up with Urology as an outpatient. A: Jesus is a 68 year old man admitted on with sepsis P: Anticipate Jesus will be transferred to a SNF for short term rehab prior to returning home. Referrals had been sent to [place], [facility], [facility], [facility] and [facility]. [facility] declined to offer him a bed and the others did not have bed availability. Additional referrals were sent to all of the [facility] facilities and to [place]. If accepted at a SNF, Sae will follow up with the facility providers and plan of care. Transportation will be determined by disposition. CM will follow and assess for discharge needs.
--- NOTE | 2023-04-06 09:49 | W.PM.PROGNOT ---
Date of Service Date of service: 04/06/23 Time of Service: 09:49 Assessment and Plan Assessment and plan (1) Septic shock: Status: Acute Assessment and plan: -On admission patient met criteria for septic shock with a white blood cell count of 35, respiratory rate greater than 20, heart rate greater than 90, infectious encephalopathy, and an initial lactic acid of 4.3 -Septic shock pathology has resolved with normalization of lactic acid and return to mental status baseline -However, thus far source of infection has not been identified though it is likely due to nephrostomy tube -nephrostomy tube culture results negative -Sputum has grown Pseudomonas though patient has not had any respiratory symptoms and chest x-ray is without any acute findings -Patient currently on cefepime, continue to treat for Pseudomonas and will transition to 10 days of Levaquin upon discharge (2) Leukocytosis, unspecified: Status: Acute Assessment and plan: -WBC had persisted at 34,000, may be due to combination of septic shock and steroids for COPD -WBC down to 28K on 04/04, but back up to 32K on 04/05 possibly due to transfusion as noted below -Will continue to monitor Qualifiers: Leukocytosis type: bandemia Qualified Code(s): D72.825 - Bandemia (3) Blood loss anemia: Status: Acute Assessment and plan: -secondary to bladder CA and nephrostomy tube -Hb yesterday down to 6.6, patient now s/p 1U PRBCs -AM 04/05 Hb 8.4, will continue to monitor (4) Hydronephrosis, left: Status: Acute Assessment and plan: -As above, now s/p nephrostomy tube placement (5) Malignant neoplasm metastatic from bladder: Status: Acute Assessment and plan: -As above (6) Acute exacerbation of chronic obstructive pulmonary disease (COPD): Status: Acute Assessment and plan: -Continue bronchodilators. -Now off prednisone. -continue Symbicort and Spiriva along w/ DuoNebs (7) Type 2 diabetes mellitus: Status: Chronic Assessment and plan: -hypoglycemic overnight 04/03, SSI decreased to sensitive Qualifiers: Diabetes mellitus laborer marine terminal insulin use: without laborer marine terminal use Diabetes mellitus complication status: with other specified complication Qualified Code(s): E11.69 - Type 2 diabetes mellitus with other specified complication (8) Essential hypertension: Status: Chronic Assessment and plan: -Continue home medications. (9) Pain in gums: Status: Acute Assessment and plan: -facial CT w/ contrast did not show any acute findings Continue ora gel Subjective Subjective Interval history since last seen: Patient was sitting up in the chair shaving this morning stating that he is feeling well. He is understanding that we are awaiting subacute rehab placement and has no other complaints or concerns at this time. Exam Narrative Exam Narrative: Well-appearing older gentleman laying in bed in no acute distress, ANO x 4, heart regular rhythm, lungs clear to auscultation bilaterally, abdomen soft, nontender, nondistended, nephrostomy tube in place draining blood tinged urine Objective Last Vital Signs Temp 98.1 F 04/06/23 07:40 Pulse 96 H 04/06/23 07:40 Resp 18 04/06/23 07:40 BP 158/79 H 04/06/23 07:40 Pulse Ox 96 04/06/23 07:51 Time Spent with Patient Time Spent with Patient: >50 minutes Time was spent: preparing to see the patient(eg.review tests), obtaining and/or reviewing separately otained hiistory, ordering medications,tests, procedures, referring, communicating with other health managed care nurse, indepentently interpreting results, counseling the patient and care coordination
--- NOTE | 2023-04-06 10:52 | PT.INTREAT ---
Date of service: 04/06/23 Time of Service: 09:58 PT Notes Visit Reasons: Sepsis syndrome, Metastatic bladder cancer Inpatient Physical Therapy Treatment Note [facility] Date: 04/06/23 PRECAUTIONS: Fall, standard, activity as tolerated. SUBJECTIVE: Patient reports feeling like he's gaining on it, improving in strength and stamina. OBJECTIVE: Supine in bed. Nephrostomy tube in place. Agreeable to therapy. ? PAIN: none reported VITALS: ? Pre-Treatment: SaO2 98% on RA, hr 96 bpm ? Post-Treatment: SaO2 97% on RA, HR 98 bpm? ? ? BED MOBILITY/TRANSFERS? Rolling L/R: independent Supine-sit: set up (patient requests help managing nephrostomy tube)? Sit-supine: set up (patient requests help managing nephrostomy tube)? Sit-stand: set up (patient requests help managing nephrostomy tube)? Stand-sit: set up (patient requests help managing nephrostomy tube)? Bed-Chair: SBA with nephrostomy bag hung on FWW ? Chair-bed: SBA with nephrostomy bag hung on FWW Provided skilled cues and instruction on performance and technique throughout. ? Therapeutic Exercises (78561a6): Direct one-on-one instruction in therapeutic exercises to develop strength, endurance, range of motion and flexibility. Ambulation ? Assistive Device: FWW? Weight bearing: full Assist: SBA with nephrostomy bag hung on FWW, wheelchair follow ? Distance:? 150 feet, seated rest x2, 300 feet? Deviation: Patient experiences LOB x2 while looking around rather than strictly watching his path. Patient is able to correct / recover easily using FWW, without assistance. ? Provided skilled instruction in proper exercise performance Provided skilled manual cues to facilitate proper muscle recruitment and/or form. ASSESSMENT:? Patient tolerates therapy well, recovers to baseline HR, SaO2 in <2 minutes each time. PLAN: Continue global strengthening, encouraging PO intake to help patient gain strength. TREATMENT CODE/TIME: 24 minutes beginning at 9:58
--- NOTE | 2023-04-06 14:07 | INPN_ITS ---
PT Notes Visit Reasons: Sepsis syndrome, Metastatic bladder cancer Inpatient Physical Therapy Progress Note Date: 04/06/23 Dates of Service: 03/30/2023 through 04/06/2023 Referring Doctor: Dr. Broderick PT Orders: PT CONSULT: extended stay- weakness Precautions: Standard. Falls. Activity as tolerated. Patient Profile/Admitting Diagnosis: Patient is a 68-year=old male who presented to ED 03/27/23 with c/o weakness and near-syncope. He was diagnosed with sepsis in the presence of bladder CA with metastases to the lungs. Was admitted to ICU initially, and later able to transfer to the floor. PT orders received for mobility assessment and mobilization. Patient requires continued rehabilitation to optimize functional mobility while minimizing effects of ongoing malignancy. Subjective: I want to continue working on improving and regaining my strength while I can Objective: General Observation: Resting in bed. Frail appearing. IV in LUE. Nephrostomy tube in place. Do think Mental Status: A&Ox3. Very pleasant and cooperative. Pain: 5/10 pelvic pain ROM: Right Upper Extremity: WFL Left Upper Extremity: WFL Right Lower Extremity: WFL Left Lower Extremity: WFL Strength: Right Upper Extremity: Shoulder flexion 4/5. Biceps 4/5. Triceps 3+/5. Counterintelligence Agent is weak, but equal. Left Upper Extremity: Shoulder flexion 4/5. Biceps 4/5. Triceps 3+/5. Counterintelligence Agent is weak, but equal. Right Lower Extremity: Hip flexion 4-/5. Quads 4/5. Ankle DF 4/5. Significant muscle atrophy noted through LEs. Left Lower Extremity: Hip flexion 4-/5. Quads 4/5. Ankle DF 4/5. Significant muscle atrophy noted through LEs. Sensation: Admits to tingling in bilat LEs Bed Mobility/Transfers: supine-sit: independent sit-stand: independent stand-sit: independent Gait: Ambulates 250 feet x 3' with FWW, SBA. Oxygen saturation decreasing to 86%-87% on room air needing about 2-3 minutes of seated rest and deep breathing to recover back to 89%. Moderately short of breath but normalizes with seated rest. Denies lightheadedness but does report fatigue. Balance: Static Sitting: good Dynamic Sitting: good Static Standing: good Dynamic Standing: fair 4-Position Balance Test: 2/4 Small VU: 10 seconds Partial Tandem: 10 seconds Full Tandem: 0 seconds Single Leg Stance: 0 seconds Special Tests: Mobility Limitations Standardized Measure [facility] AM-PAC 6 clicks Basic Mobility Inpatient Short Form: Raw Score: 24 CMS Score: 24 Informed Consent/Education: Patient instructed in purpose of PT consult and plan of care. Continues to be agreeable with gradual strengthening while he is able to participate to minimize the effects of ongoing malignancy. Assessment: Patient decided on continuing to work hard as he is able to tolerate to mximize his mobility level. Oxygen saturation levels continue to limit activity tolerance but ability to recover from SOB during activity has been improving. He lives alone and has impaired ability to thirve alone at home at this time and would benefit from short-term rehab vs long-term placement depending on the trajectory of his ongoing malignancy. Patient is a 68 year old male referred to physical therapy services with the diagnosis of weakness during extended hospital stay. He is admittedly very sedentary at baseline, and has had significant weight loss in the past few months. He presents with significant weakness, imbalance, and diminished activity tolerance, and requires PT intervention to maximize mobility and allow for safe transition back to the community. Anticipate he will require continued rehabilitation in SNF setting prior to returning home due to his impairments. He currently demonstrates the following impairment level findings: 1. Decreased lower extremity strength 2. Decreased upper extremity strength 3. Decreased balance 4. Decreased activity tolerance Impairments are contributing to the following functional limitations: 1. Unable to safely ambulate without assistive device 2. Decreased safety awareness 3. Increased fall risk 4. Global weakness Patient is assessed as Moderate 26405 complexity based on the following: History: As above Examination: Functional limitations as noted above Presentation: Evolving, due to acute medical issues Decision Makin Moderate complexity Goals: Goals X1 week 1. Supine-Sit : independent MET 2. Sit-Supine : independent MET 3. Sit-Stand : independent MET 4. Stand-Sit : independent MET 5. Bed-Chair : independent with FWW, with demonstration of safe management of equipment NOT MET, CONTINUE 6. Chair-Bed : independent with FWW, with demonstration of safe management of equipment NOT MET, CONTINUE 7. Gait : independent with FWW, with demonstration of safe management of e quipment, 250' NOT MET, CONTINUE Plan of Care/Treatment Plan: 1-2x/day, 7 days/week x 1 week. Plan of care has been reviewed with the MEDIA MARKETING COORDINATOR providing the service under Physical Therapy direction. Continue with Physical Therapy intervention for strengthening, bed mobility, transfers, gait, stairs, balance training, use of assistive device. DISCHARGE RECOMMENDATIONS: SNF for continued rehabilitation TREATMENT CODE/TIME: 65613 x 48 minutes for 3 units beginning at 14:07 PM.
[2023-04-06] MEDS: Simvastatin 10 MG TAB PO (21:22)
[2023-04-06] MEDS: Pantoprazole 20 MG TABCR PO (21:24)
[2023-04-06] MEDS: Insulin Glargine 300 UNITS/3 ML PEN SC (22:24)
[2023-04-06] MEDS: Melatonin 3 MG TAB PO (22:26)
[2023-04-06] MEDS: Docusate Sodium 100 MG CAP PO (22:26)
[2023-04-07] VITALS (8 sets, daily range): BP systolic 133–190; BP diastolic 79–93; PULSE 98–121; RESP 2–22; TEMP 35.5–36.5; O2SAT 89–97
[2023-04-07] MEDS: Normal Saline Flush 10 ML SYR IVP ×6 (01:30→23:40)
[2023-04-07] MEDS: CEFEPIME 2 GM in Normal Saline 100 ML IVPB ×2 (01:30→14:58)
[2023-04-07 02:00] LABS: Glucose 447 mg/dL (74-106)
[2023-04-07] MEDS: oxyCODONE 5 MG TAB PO ×4 (02:20→20:32)
[2023-04-07] MEDS: Insulin Aspart 300 UNITS/3 ML PEN 8 UNITS SC (02:21)
[2023-04-07 07:14] LABS: HCT 23.1 % (40.0-50.0); HGB 7.5 g/dL (13.5-17.5); MCHC 32.5 % (32.0-36.0); MCV 80 fL (80-95); MPV 8.2 fL (8.0-11.0); Platelet Count 405 10^3/uL (130-400); RBC 2.88 10^6/uL (4.36-5.78); RDW 22.9 % (11.8-14.1); RDW-SD 68.2 fL
[2023-04-07 07:18] LABS: WBC 32.51 10^3/uL (4.4-10.8)
[2023-04-07] MEDS: Insulin Aspart 300 UNITS/3 ML PEN SC ×3 (08:19→22:58)
[2023-04-07] MEDS: Budesonide/Formoterol 160/4.5 6 GM 60 PUFF INH IH ×2 (08:39→20:08)
[2023-04-07] MEDS: Tiotropium Bromide-Respimat 10 PUFF INH 2 PUFF IH (08:40)
[2023-04-07] MEDS: Magnesium Oxide 400 MG TAB PO ×3 (08:45→20:31)
[2023-04-07] MEDS: Metoprolol 12.5 MG TAB PO ×2 (08:45→20:31)
[2023-04-07] MEDS: Oxybutynin 5 MG TAB PO ×2 (08:45→22:56)
[2023-04-07] MEDS: guaiFENesin 600 MG TABCR PO ×2 (08:45→20:33)
[2023-04-07] MEDS: Multivitamin w/Minerals TAB 1 TAB PO (08:45)
[2023-04-07] MEDS: Tamsulosin 0.4 MG CAPCR PO (08:46)
[2023-04-07] MEDS: oxyCODONE-CR 20 MG TABCR PO ×2 (08:46→20:31)
[2023-04-07] MEDS: Methylphenidate 10 MG TAB 5 MG PO (08:46)
[2023-04-07] MEDS: Ferrous Sulfate 325 MG TAB PO ×2 (08:46→20:33)
[2023-04-07] MEDS: Nicotine 14 MG/24 HR PATCH TD (08:49)
[2023-04-07] MEDS: Albuterol/Ipratropium 3 ML UPD VIAL UPD ×2 (09:00→23:27)
[2023-04-07] MEDS: Polyethylene Glycol 3350 17 GM PACKET PO ×2 (09:20→20:30)
[2023-04-07 09:28] LABS: Abs Immature Grans 0.47 10^3/uL (0.0-0.06); Absolute Basophil Count 0.12 10^3/uL (0.0-0.2); Absolute Lymphocyte Count 1.12 10^3/uL (1.2-3.4); Anion Gap 9.2 mmol/L (3-11); BUN 21 mg/dL (7-18); Basophils % 0.3; CO2 24.8 mmol/L (21.0-32.0); CREATININE 0.9 mg/dL (0.70-1.30); Calcium 9.5 mg/dL (8.5-10.1); Chloride 96 mmol/L (98-107); Eosinophils % 0.2; Estimated GFR 93.61 (mL/min/1.73m2); Glucose 218 mg/dL (74-106); HCT 23.6 % (40.0-50.0); HGB 7.8 g/dL (13.5-17.5); Immature Grans % 1.2; Lymphocytes % 2.9; MCH 26.4 pg (27.0-33.0); MCHC 33.1 % (32.0-36.0); MCV 80 fL (80-95); MPV 8.1 fL (8.0-11.0); Monocytes % 2.9; Neutrophils % 92.5; Platelet Count 335 10^3/uL (130-400); Potassium 4.6 mmol/L (3.5-5.1); RBC 2.96 10^6/uL (4.36-5.78); RDW 22.6 % (11.8-14.1); RDW-SD 66.3 fL; Sodium 130 mmol/L (136-145)
[2023-04-07 09:35] LABS: Absolute Eosinophil Count 0.08 10^3/uL (0.0-0.7); Absolute Monocyte Count 1.12 10^3/uL (0.1-0.8); Absolute Neutrophil Count 35.65 10^3/uL (1.2-6.7); WBC 38.54 10^3/uL (4.4-10.8)
--- NOTE | 2023-04-07 09:44 | CMPROGNOTE_ITS ---
Date of service: 04/07/23 Time of Service: 09:44 Care Management Progress Note Progress Note Text Progress Note Text: S/O: Sae was sitting up in bed when CM met with him. He was groaning and writhing in pain as CM entered the room. Sae explained that his pain has been increasing and he feels he would benefit from a visit from Urology. CM relayed his concerns and request to the provider. CM informed Sae that he had a bed offer in [place] but that they only do admissions on Monday, Monday and . Another bed is available on Monday in [place]. Sae stated that he would prefer to go to [place], but CM explained that if he is medically ready, which he has been, we would be unable to keep him an extra 3 days if he has another bed offer. He verbalized that he understood. Sae informed CM that the [facility] will pay for his rehab stay. CM reported that the VA had been contacted and, because Sae is not service connected, any rehab stay would not be covered. Sae insisted that it would and requested that CM contact his VA piano case and bench assembler. He did not know her name or contact information. CM then contacted his daughter Maricarmen who provided the contact information . His piano case and bench assembler's name is Monse and she can be reaches at '. She confirmed that Sae is NOT eligible for SNF coverage for rehab but that he would have 120 days of paid hospice care coverage. The [facility] would pay 100% for SNF hospice in a VA-contracted SNF. CM emailed the list of VA-contracted SNFs in both [place] and [place] to Maricarmen for future reference. A: Jesus is a 68 year old man admitted on with sepsis P: Anticipate Jesus will be transferred to a SNF for short term rehab prior to returning home. Referrals had been sent to several facilities and a bed offer was received for [place] for Monday admission. The offer was accepted. [facility] is requesting 9am transport and Maricarmen has agreed to drive Sae to [place]. [facility] is requesting that nephrostomy tube supplies and dressings be sent with Sae. He will follow up with the facility providers and plan of care. CM will follow and assess for discharge needs.
[2023-04-07 09:55] LABS: Anisocytosis 2+; Diff Comment Agrees w/ Instrument; Hypochromasia 2+
[2023-04-07 12:21] LABS: HCT 25.9 % (40.0-50.0); HGB 8.5 g/dL (13.5-17.5)
--- NOTE | 2023-04-07 15:02 | PTTR_ITS ---
Date of service: 04/07/23 Time of Service: 09:45 PT Notes Visit Reasons: Sepsis syndrome, Metastatic bladder cancer Inpatient Physical Therapy Treatment Note [facility] Date: 04/07/23 PRECAUTIONS: Fall, standard, activity as tolerated. SUBJECTIVE: Patient reports having had a terrible night, during which he did not sleep at all, not even five minutes. Reports that he experiences frequent urges to pee, struggles to void, the urge passes, but then returns as soon as he lays back down. Also having increased COPD symptoms today, working very hard to breath. OBJECTIVE: Patient is supine in bed. Initially resists therapy. Agreeable to gentle stretches and STM to help manage COPD symptoms.? PAIN: Yes, pain with urination. VITALS: ? Pre-Treatment: SaO2 97%, HR 99 bpm.? MANUAL THERAPY ([id number]): * seated sidebending with overpressure at lower ribs on exhale. * gentle grade 1 mobilizations of first rib * Sidelying over pillow with overpressure to encourage rib mobility ASSESSMENT:? Patient declines to participate in therapy in the afternoon, due to still not having had any rest. CM Ngoc aware. Patient reports feeling as though he can take a slightly deeper breath after morning therapy treatment. PLAN: Resume global strengthening per plan of care tomorrow. TREATMENT CODE/TIME: 33 minutes beginning at 9:45
--- NOTE | 2023-04-07 16:26 | W.PM.PROGNOT ---
Date of Service Date of service: 04/07/23 Time of Service: 16:26 Assessment and Plan Assessment and plan (1) Septic shock: Status: Resolved Assessment and plan: Suspec that the source was urinary (on admission), but that the urine C&S did not capture the bacterial growth above the level of obstruction. Also did have pseudomonas in the sputum. Blood cultures negative. S/p nephrostomy tube. Improving on cefepime. Plan to transition to levofloxacin on discharge; will investigate that duration of therapy. WBC is improving on cefepime. (2) Leukocytosis, unspecified: Status: Acute Assessment and plan: As above Qualifiers: Leukocytosis type: bandemia Qualified Code(s): D72.825 - Bandemia (3) Blood loss anemia: Status: Acute Assessment and plan: -secondary to bladder cancer causing hematuria. S/p transfusion 2 units pRBCs on this admission. Today's Hgb on repeat is actually stable from yesterday. No indication for xfusion at this time. (4) Hydronephrosis, left: Status: Acute Assessment and plan: S/p nephrostomy 03/31/23 - [facility] [place]. Cx negative. (5) Malignant neoplasm metastatic from bladder: Status: Acute Assessment and plan: Evaluated by urology again today, now s/p irwin. Patient is interested in palliative chemotherapy and will follow up with the [place]/[facility] on discharge. (6) Acute exacerbation of chronic obstructive pulmonary disease (COPD): Status: Resolved Assessment and plan: Finished prednisone taper. Continue duonebs, symbicort, spiriva. (7) Type 2 diabetes mellitus: Status: Chronic Assessment and plan: While FBG was 351 this am, the remainder of blood sugars were 90 and 75. D/c carb coverage. Hold glargine tonight. Continue sensitive SSI. Qualifiers: Diabetes mellitus correction insulin use: without superintendent terminal use Diabetes mellitus complication status: with other specified complication Qualified Code(s): E11.69 - Type 2 diabetes mellitus with other specified complication (8) Essential hypertension: Status: Chronic Assessment and plan: No change in tx. (9) Pain in gums: Status: Acute Assessment and plan: IMaging w/o abscesses/osteo. Continue oragel (10) DVT prophylaxis: Status: Acute Assessment and plan: Sc heparin (11) Discharge planning issues: Status: Acute Assessment and plan: DNR/DNI Anticipate discharge to SNF on Monday. Discussed case with Dr Knight. Subjective Subjective Interval history since last seen: Mr Elizabeth states that his RLQ hurts, especially so when trying to urinate. The pain started today. He has been urinating dark red urine (the urine in his L nephrostomy tube is light clear). Nursing notes some small clots in the urine. Bladder scans have been <100 cc. Denies dizziness, CP, SOB is up due to pain, denies n/v. Was about to be seen by Dr Knight. Exam Narrative Exam Narrative: General: a pleasant male who is visibly uncomfortable sitting up at the edge of the bed, A&Ox3, on RA, pursed lip breathing HEENT: EOMI, MMM Heart: RRR, tachycardic Lungs: Diminished breath sound B Abdomen: soft, tender in RLQ, nondistended : L-sided nephrostomy tube draining clear yellow urine; Urine in urinal at the bedside is dark red Extremities: no edema BLEs Objective Last Vital Signs Temp 35.5 C L 04/07/23 15:17 Pulse 111 H 04/07/23 15:17 Resp 22 04/07/23 15:17 BP 157/79 H 04/07/23 15:17 Pulse Ox 97 04/07/23 15:17 Laboratory Results - last 24 hr 04/07/23 04/07/23 04/07/23 01:17 06:48 09:07 WBC 32.51 H* 38.54 H* RBC 2.88 L 2.96 L Hgb 7.5 L 7.8 L Hct 23.1 L 23.6 L MCV 80 80 MCH 26.0 L 26.4 L MCHC 32.5 33.1 RDW 22.9 H 22.6 H Plt Count 405 H 335 MPV 8.2 8.1 Immature Gran % 1.2 Neutrophils % 92.5 Lymphocytes % 2.9 Monocytes % 2.9 Eosinophils % 0.2 Basophils % 0.3 Nucleated RBC % 0.0 Absolute Neutrophils 35.65 H Absolute Lymphocytes 1.12 L Absolute Monocytes 1.12 H Absolute Eosinophils 0.08 Absolute Basophils 0.12 RBC Morphology See Below Hypochromasia 2+ Anisocytosis 2+ Sodium 130 L Potassium 4.6 Chloride 96 L Carbon Dioxide 24.8 Anion Gap 9.2 BUN 21 H Creatinine 0.9 Est GFR (CKD-EPI 2020) 93.61 Glucose 447 H 218 H Calcium 9.5 Magnesium 2.0 04/07/23 11:55 WBC RBC Hgb 8.5 L Hct 25.9 L MCV MCH MCHC RDW Plt Count MPV Immature Gran % Neutrophils % Lymphocytes % Monocytes % Eosinophils % Basophils % Nucleated RBC % Absolute Neutrophils Absolute Lymphocytes Absolute Monocytes Absolute Eosinophils Absolute Basophils RBC Morphology Hypochromasia Anisocytosis Sodium Potassium Chloride Carbon Dioxide Anion Gap BUN Creatinine Est GFR (CKD-EPI 2020) Glucose Calcium Magnesium Time Spent with Patient Time Spent with Patient: 35-49 minutes Time was spent: preparing to see the patient(eg.review tests), obtaining and/or reviewing separately otained hiistory, ordering medications,tests, procedures, referring, communicating with other health career development specialist, indepentently interpreting results, counseling the patient and care coordination
[2023-04-07] MEDS: HYDROmorphone 2 MG/ML SYR IVP (16:31)
[2023-04-07] MEDS: Dronabinol 2.5 MG CAP PO (17:49)
[2023-04-07] MEDS: Melatonin 3 MG TAB PO (20:31)
[2023-04-07] MEDS: Simvastatin 10 MG TAB PO (20:31)
[2023-04-07] MEDS: Pantoprazole 20 MG TABCR PO (20:31)
[2023-04-08] VITALS (12 sets, daily range): BP systolic 106–178; BP diastolic 65–95; PULSE 80–97; RESP 3–32; TEMP 36.7–37.2; O2SAT 87–98
[2023-04-08] MEDS: oxyCODONE 5 MG TAB PO ×3 (01:10→20:16)
[2023-04-08] MEDS: Normal Saline Flush 10 ML SYR IVP ×6 (02:04→20:14)
[2023-04-08] MEDS: CEFEPIME 2 GM in Normal Saline 100 ML IVPB ×2 (02:05→14:12)
[2023-04-08] MEDS: HYDROmorphone 2 MG/ML SYR IVP (03:06)
[2023-04-08] MEDS: Ondansetron 4 MG/2 ML VIAL IVP (03:07)
[2023-04-08 06:51] LABS: Anion Gap 11.2 mmol/L (3-11); BUN 25 mg/dL (7-18); CO2 24.8 mmol/L (21.0-32.0); CREATININE 1.1 mg/dL (0.70-1.30); Calcium 9.2 mg/dL (8.5-10.1); Chloride 96 mmol/L (98-107); Estimated GFR 73.58 (mL/min/1.73m2); Glucose 295 mg/dL (74-106); Magnesium 2.3 mg/dL (1.8-2.4); Potassium 5.3 mmol/L (3.5-5.1); Sodium 132 mmol/L (136-145)
[2023-04-08 07:16] LABS: Abs Immature Grans 0.46 10^3/uL (0.0-0.06); Basophils % 0.3; HCT 21.1 % (40.0-50.0); Immature Grans % 1.3; Lymphocytes % 1.5; MCH 26.1 pg (27.0-33.0); MCHC 32.2 % (32.0-36.0); MCV 81 fL (80-95); MPV 8.2 fL (8.0-11.0); Monocytes % 2.4; Neutrophils % 94.5; Platelet Count 379 10^3/uL (130-400); RBC 2.61 10^6/uL (4.36-5.78); RDW 22.9 % (11.8-14.1); RDW-SD 68.5 fL
[2023-04-08 07:18] LABS: Absolute Lymphocyte Count 0.52 10^3/uL (1.2-3.4); Absolute Monocyte Count 0.83 10^3/uL (0.1-0.8); Absolute Neutrophil Count 32.87 10^3/uL (1.2-6.7)
[2023-04-08 07:20] LABS: HGB 6.8 g/dL (13.5-17.5); WBC 34.78 10^3/uL (4.4-10.8)
[2023-04-08 07:31] LABS: Anisocytosis 2+; Diff Comment Agrees w/ Instrument; Poikilocytes 1+; Polychromasia Present
[2023-04-08] MEDS: oxyCODONE-CR 20 MG TABCR PO ×2 (07:48→20:15)
[2023-04-08] MEDS: Metoprolol 12.5 MG TAB PO ×2 (07:48→20:15)
[2023-04-08] MEDS: guaiFENesin 600 MG TABCR PO ×2 (07:49→20:15)
[2023-04-08] MEDS: Tamsulosin 0.4 MG CAPCR PO (07:49)
[2023-04-08] MEDS: Oxybutynin 5 MG TAB PO ×2 (07:49→20:17)
[2023-04-08] MEDS: Methylphenidate 10 MG TAB 5 MG PO (07:50)
[2023-04-08] MEDS: Ferrous Sulfate 325 MG TAB PO ×2 (07:51→20:16)
[2023-04-08] MEDS: Multivitamin w/Minerals TAB 1 TAB PO (07:51)
[2023-04-08] MEDS: Magnesium Oxide 400 MG TAB PO ×3 (07:51→20:16)
[2023-04-08] MEDS: Nicotine 14 MG/24 HR PATCH TD (07:53)
[2023-04-08] MEDS: Insulin Aspart 300 UNITS/3 ML PEN SC ×3 (07:53→21:09)
[2023-04-08] MEDS: Dronabinol 2.5 MG CAP PO (08:17)
[2023-04-08] MEDS: Tiotropium Bromide-Respimat 10 PUFF INH 2 PUFF IH (09:01)
[2023-04-08] MEDS: Budesonide/Formoterol 160/4.5 6 GM 60 PUFF INH IH ×2 (09:01→20:13)
[2023-04-08] MEDS: Albuterol/Ipratropium 3 ML UPD VIAL UPD ×3 (09:03→20:13)
--- NOTE | 2023-04-08 10:32 | PT.INTREAT ---
Date of service: 04/08/23 Time of Service: 10:15 PT Notes Visit Reasons: Sepsis syndrome, Metastatic bladder cancer Inpatient Physical Therapy Treatment Note [facility] Date: 04/08/2023 PRECAUTIONS: Fall, standard, activity as tolerated. Attempted to see Sae 3 x this morning but first time he indicated he wanted to get his respiratory treatment first, second time he had gotten himself to edge of bed while alone in room and had blood leaking on floor requiring nursing for inspection and clean up and third time he was getting ready to receive blood so nursing indicated it maybe better to hold on ambulation for that point and time. Sae did indicate he wants doctor to know he was willing to participate in PT but timing was just not working out today. Stated he would like me to come back tomorrow to see if we maybe able to perform his PT.
--- NOTE | 2023-04-08 12:06 | NUR.NOTE ---
During blood transfusion, vital signs were due and taken at 11:24 but on accident I manually put the time in as 11:34.Nursing Note:
[2023-04-08 13:02] LABS: Bilirubin Negative (Negative); Blood Large (Negative); Clarity Clear (Clear); Glucose Negative (Negative); Ketones Trace mg/dL (Negative); Leukocyte Esterase Small (Negative); Nitrite Negative (Negative); Urobilinogen 0.2 mg/dL (Up to 0.2); pH 6.5 (5-8)
[2023-04-08 13:10] LABS: Bacteria Rare HPF (Negative); C & S Indicated? Yes; Casts 3-5 Hyaline LPF (Negative); Crystals Negative HPF (Negative); Epithelial Cells Negative HPF (Negative); Mucus Negative (Negative); RBC >50 HPF (0-2)
[2023-04-08 13:41] LABS: HCT 24.3 % (40.0-50.0); HGB 8.2 g/dL (13.5-17.5)
[2023-04-08 13:51] LABS: Anion Gap 10.8 mmol/L (3-11); BUN 25 mg/dL (7-18); CO2 24.2 mmol/L (21.0-32.0); CREATININE 0.8 mg/dL (0.70-1.30); Calcium 9.3 mg/dL (8.5-10.1); Chloride 97 mmol/L (98-107); Glucose 134 mg/dL (74-106); Potassium 5.1 mmol/L (3.5-5.1); Sodium 132 mmol/L (136-145)
[2023-04-08 13:56] LABS: Bilirubin Moderate (Negative); Blood Large (Negative); Clarity Cloudy (Clear); Glucose Negative (Negative); Ketones 15 mg/dL (Negative); Leukocyte Esterase Trace (Negative); Nitrite Positive (Negative)
[2023-04-08 13:58] LABS: C & S Indicated? Yes; RBC >50 HPF (0-2); Specific Gravity 1.025 (1.005-1.025)
[2023-04-08] MEDS: Normal Saline 10 ML VIAL IJ (14:13)
--- NOTE | 2023-04-08 16:14 | W.PM.PROGNOT ---
Date of Service Date of service: 04/08/23 Time of Service: 16:14 Assessment and Plan Assessment and plan (1) Septic shock: Status: Resolved Assessment and plan: Suspect that the source was urinary (on admission), but that the urine C&S did not capture the bacterial growth above the level of obstruction. I have repeated urinalyses from both the UA and nephrostomy today. Also did have pseudomonas in the sputum. Blood cultures negative. S/p nephrostomy tube. Improving on cefepime. Plan to transition to levofloxacin on discharge; will investigate that duration of therapy. WBC is improving on cefepime. (2) Leukocytosis, unspecified: Status: Acute Assessment and plan: As above Qualifiers: Leukocytosis type: bandemia Qualified Code(s): D72.825 - Bandemia (3) Blood loss anemia: Status: Acute Assessment and plan: -secondary to bladder cancer causing hematuria. Received his 3rd unit of blood today. Repeat H/H in am. (4) Hydronephrosis, left: Status: Acute Assessment and plan: S/p nephrostomy 03/31/23 - [facility] [place]. Cx negative. (5) Malignant neoplasm metastatic from bladder: Status: Acute Assessment and plan: Evaluated by urology, now s/p irwin and nephrostomy tube. Patient is interested in palliative chemotherapy and will follow up with the [place]/[facility] on discharge. (6) Acute exacerbation of chronic obstructive pulmonary disease (COPD): Status: Resolved Assessment and plan: Finished prednisone taper. Continue duonebs, symbicort, spiriva. (7) Type 2 diabetes mellitus: Status: Chronic Assessment and plan: While FBG was 351 this am, the remainder of blood sugars were 90 and 75. Resume lantus. Continue sensitive SSI. Qualifiers: Diabetes mellitus complication status: with other specified complication Diabetes mellitus [facility] insulin use: without intermediate teacher use Qualified Code(s): E11.69 - Type 2 diabetes mellitus with other specified complication (8) Essential hypertension: Status: Chronic Assessment and plan: No change in tx. (9) Pain in gums: Status: Acute Assessment and plan: Imaging w/o abscesses/osteo. Continue oragel (10) DVT prophylaxis: Status: Acute Assessment and plan: Sc heparin (11) Discharge planning issues: Status: Acute Assessment and plan: DNR/DNI Possible d/c to SNF on Monday. Subjective Subjective Interval history since last seen: Mr Johnson reports a number of concerns. 1. Hallucinations on hydromorphone. This has actually happened before, when he had surgery, but we were not aware of it. I reassured him we would address this. 2. Headaches. 3. Gum pain. I had asked the nursing to administer ora gel which was prescribed. 4. Shortness of breath. He believes he got combivent this morning instead of duonebs and states that duonebs work much better for him. I reassured him I'd look at the chart to ensure that it was duonebs. 5. Persistent hematuria and bladder spasms. He was evaluated today by Dr Knight who addressed these concerns. We did discuss how we can try morphine for pain. 6. Constipation. It's been a few days. 7. New tremors which make it hard for him to even hold utensils and eat, starting yesterday. Exam Narrative Exam Narrative: General: a pleasant male who is on 1 L of O2 by NC, pursed lip breathing, appears anxious, mildly uncomfortable in comparison to yesterday (was worse). HEENT: EOMI, MMM Heart: RRR, no m/r/g Lungs: scattered rhonchi B Abdomen: soft, tender in RLQ, nondistended : L-sided nephrostomy tube draining clear yellow urine; Irwin catheter with dark red urine Extremities: no edema BLEs Objective Last Vital Signs Temp 37 C 04/08/23 13:13 Pulse 90 04/08/23 13:13 Resp 18 04/08/23 13:13 BP 138/80 04/08/23 13:13 Pulse Ox 87 L 04/08/23 13:13 Laboratory Results - last 24 hr 04/08/23 04/08/23 04/08/23 06:27 07:07 08:42 WBC Cancelled 34.78 H* RBC Cancelled 2.61 L Hgb Cancelled 6.8 L* Hct Cancelled 21.1 L MCV Cancelled 81 MCH Cancelled 26.1 L MCHC Cancelled 32.2 RDW Cancelled 22.9 H Plt Count Cancelled 379 MPV Cancelled 8.2 Immature Gran % Cancelled 1.3 Neutrophils % Cancelled 94.5 Band Neutrophils % Cancelled Lymphocytes % Cancelled 1.5 Atypical Lymphs % Cancelled Monocytes % Cancelled 2.4 Eosinophils % Cancelled 0.0 Basophils % Cancelled 0.3 Metamyelocytes % Cancelled Myelocytes % Cancelled Promyelocytes % Cancelled Other Cells % Cancelled Nucleated RBC % Cancelled 0.0 Absolute Neutrophils Cancelled 32.87 H Absolute Lymphocytes Cancelled 0.52 L Absolute Monocytes Cancelled 0.83 H Absolute Eosinophils Cancelled 0.00 Absolute Basophils Cancelled 0.10 RBC Morphology Cancelled See Below Polychromasia Cancelled Present Hypochromasia Cancelled Poikilocytosis Cancelled 1+ Basophilic Stippling Cancelled Anisocytosis Cancelled 2+ Microcytosis Cancelled Macrocytosis Cancelled Spherocytes Cancelled Tear Drop Cells Cancelled Ovalocytes Cancelled Stomatocytes Cancelled Gatica-Ludell Bodies Cancelled Maya Cells/Echinocytes Cancelled Acanthocytes (Spur) Cancelled Schistocytes Cancelled Sodium 132 L Potassium 5.3 H Chloride 96 L Carbon Dioxide 24.8 Anion Gap 11.2 H BUN 25 H Creatinine 1.1 Est GFR (CKD-EPI 2020) 73.58 Glucose 295 H Calcium 9.2 Magnesium 2.3 Urine Color Urine Clarity Urine pH Ur Specific [place] Urine Protein Urine Ketones Urine Blood Urine Nitrite Urine Bilirubin Urine Urobilinogen Ur Leukocyte Esterase Urine RBC Urine WBC Ur Epithelial Cells Urine Crystals Urine Bacteria Urine Casts Urine Mucus Ur Culture Indicated? Urine Glucose Patient ABO/Rh B Positive Antibody Screen NEGATIVE Crossmatch See Detail 04/08/23 04/08/23 04/08/23 12:45 13:30 13:34 WBC RBC Hgb 8.2 L Hct 24.3 L MCV MCH MCHC RDW Plt Count MPV Immature Gran % Neutrophils % Band Neutrophils % Lymphocytes % Atypical Lymphs % Monocytes % Eosinophils % Basophils % Metamyelocytes % Myelocytes % Promyelocytes % Other Cells % Nucleated RBC % Absolute Neutrophils Absolute Lymphocytes Absolute Monocytes Absolute Eosinophils Absolute Basophils RBC Morphology Polychromasia Hypochromasia Poikilocytosis Basophilic Stippling Anisocytosis Microcytosis Macrocytosis Spherocytes Tear Drop Cells Ovalocytes Stomatocytes Gatica-Ludell Bodies Maya Cells/Echinocytes Acanthocytes (Spur) Schistocytes Sodium 132 L Potassium 5.1 Chloride 97 L Carbon Dioxide 24.2 Anion Gap 10.8 BUN 25 H Creatinine 0.8 Est GFR (CKD-EPI 2021) 97.00 Glucose 134 H Calcium 9.3 Magnesium Urine Color Yellow Red Urine Clarity Clear Cloudy Urine pH 6.5 6.0 Ur Specific [place] 1.020 1.025 Urine Protein 100 H >=300 H Urine Ketones Trace H 15 H Urine Blood Large H Large H Urine Nitrite Negative Positive H Urine Bilirubin Negative Moderate H Urine Urobilinogen 0.2 1.0 H Ur Leukocyte Esterase Small H Trace H Urine RBC >50 H >50 H Urine WBC 10-20 H Ur Epithelial Cells Negative Urine Crystals Negative Urine Bacteria Rare Urine Casts 3-5 Hyaline Urine Mucus Negative Ur Culture Indicated? Yes Yes Urine Glucose Negative Negative Patient ABO/Rh Antibody Screen Crossmatch Time Spent with Patient Time Spent with Patient: 35-49 minutes Time was spent: preparing to see the patient(eg.review tests), obtaining and/or reviewing separately otained hiistory, ordering medications,tests, procedures, referring, communicating with other health medication care manager, indepentently interpreting results, counseling the patient and care coordination
[2023-04-08] MEDS: Senna TAB 1 TAB PO ×2 (16:22→20:16)
[2023-04-08] MEDS: Bisacodyl 5 MG TABEC PO (16:23)
[2023-04-08] MEDS: Docusate Sodium 100 MG CAP PO ×2 (16:23→20:17)
[2023-04-08] MEDS: Lidocaine 2% Viscous 1 ML Solution 15 ML PO (17:32)
[2023-04-08] MEDS: MORPHine 4 MG/ML SYR IVP (17:46)
[2023-04-08] MEDS: Polyethylene Glycol 3350 17 GM PACKET PO (20:12)
[2023-04-08] MEDS: Simvastatin 10 MG TAB PO (20:15)
[2023-04-08] MEDS: Pantoprazole 20 MG TABCR PO (20:17)
[2023-04-08] MEDS: Insulin Glargine 300 UNITS/3 ML PEN SC (21:08)
[2023-04-09] VITALS (8 sets, daily range): BP systolic 124–128; BP diastolic 54–73; PULSE 79–101; RESP 3–26; TEMP 36.7–37; O2SAT 93–95
[2023-04-09] MEDS: CEFEPIME 2 GM in Normal Saline 100 ML IVPB ×2 (02:28→15:00)
[2023-04-09] MEDS: Normal Saline Flush 10 ML SYR IVP ×6 (02:29→21:28)
[2023-04-09] MEDS: oxyCODONE 5 MG TAB PO ×4 (02:44→20:29)
[2023-04-09] MEDS: MORPHine 4 MG/ML SYR IVP ×4 (04:53→21:29)
[2023-04-09] MEDS: Albuterol 2.5 MG/3 ML INH SOLN VIAL UPD (05:02)
[2023-04-09 06:58] LABS: Abs Immature Grans 0.22 10^3/uL (0.0-0.06); HCT 22.5 % (40.0-50.0); HGB 7.6 g/dL (13.5-17.5); MCH 27.9 pg (27.0-33.0); MCHC 33.8 % (32.0-36.0); MCV 83 fL (80-95); MPV 8.6 fL (8.0-11.0); Platelet Count 370 10^3/uL (130-400); RBC 2.72 10^6/uL (4.36-5.78); RDW 21.4 % (11.8-14.1); RDW-SD 65.9 fL
[2023-04-09 07:14] LABS: Anion Gap 9.3 mmol/L (3-11); BUN 23 mg/dL (7-18); CO2 25.7 mmol/L (21.0-32.0); CREATININE 0.9 mg/dL (0.70-1.30); Calcium 8.7 mg/dL (8.5-10.1); Chloride 96 mmol/L (98-107); Estimated GFR 93.61 (mL/min/1.73m2); Glucose 221 mg/dL (74-106); Magnesium 1.9 mg/dL (1.8-2.4); Potassium 4.3 mmol/L (3.5-5.1); Sodium 131 mmol/L (136-145)
[2023-04-09 07:15] LABS: Absolute Lymphocyte Count 0.77 10^3/uL (1.2-3.4)
[2023-04-09 07:17] LABS: Absolute Monocyte Count 0.77 10^3/uL (0.1-0.8); Absolute Neutrophil Count 24.14 10^3/uL (1.2-6.7); WBC 25.68 10^3/uL (4.4-10.8)
[2023-04-09 07:18] LABS: Anisocytosis 2+; Diff Comment Manual Differential; Hypochromasia 2+
[2023-04-09] MEDS: Budesonide/Formoterol 160/4.5 6 GM 60 PUFF INH IH ×2 (08:00→20:28)
[2023-04-09] MEDS: Albuterol/Ipratropium 3 ML UPD VIAL UPD ×4 (08:00→20:28)
[2023-04-09] MEDS: Tiotropium Bromide-Respimat 10 PUFF INH 2 PUFF IH (08:00)
[2023-04-09] MEDS: Oxybutynin 5 MG TAB PO ×2 (08:06→20:27)
[2023-04-09] MEDS: Docusate Sodium 100 MG CAP PO ×2 (08:06→20:30)
[2023-04-09] MEDS: guaiFENesin 600 MG TABCR PO ×2 (08:06→20:30)
[2023-04-09] MEDS: oxyCODONE-CR 20 MG TABCR PO (08:06)
[2023-04-09] MEDS: Ferrous Sulfate 325 MG TAB PO ×2 (08:07→20:30)
[2023-04-09] MEDS: Magnesium Oxide 400 MG TAB PO ×3 (08:07→20:29)
[2023-04-09] MEDS: Nicotine 14 MG/24 HR PATCH TD (08:07)
[2023-04-09] MEDS: Multivitamin w/Minerals TAB 1 TAB PO (08:07)
[2023-04-09] MEDS: Tamsulosin 0.4 MG CAPCR PO (08:07)
[2023-04-09] MEDS: Senna TAB 1 TAB PO ×2 (08:07→20:29)
[2023-04-09] MEDS: Polyethylene Glycol 3350 17 GM PACKET PO ×2 (08:08→20:28)
[2023-04-09] MEDS: Methylphenidate 10 MG TAB 5 MG PO (08:08)
[2023-04-09] MEDS: Metoprolol 12.5 MG TAB PO ×2 (08:09→20:30)
[2023-04-09] MEDS: Insulin Aspart 300 UNITS/3 ML PEN SC ×3 (08:09→21:30)
--- NOTE | 2023-04-09 11:18 | PT.INTREAT ---
Date of service: 04/09/23 Time of Service: 10:30 PT Notes Visit Reasons: Sepsis syndrome, Metastatic bladder cancer Inpatient Physical Therapy Treatment [facility] Date: 04/09/2023 PRECAUTIONS: Fall, standard, activity as tolerated. SUBJECTIVE: Stated he is glad to do his PT. Likes to walk. OBJECTIVE: ? PAIN: Complained of new pain that feels like someone is shaking his asshole, just started yesterday. VITALS: ? Pre-Treatment: 97% O2 while on 1L O2 supplement with HR of 94b/m ? Post-Treatment: 93% O2 while in .5L O2 supplement with HR of 98b/m Therapeutic Activities (60738q5): Direct one-on-one instruction in dynamic activities to improve functional performance. ? BED MOBILITY/TRANSFERS? Rolling L/R: SBA, help with tubing Supine-sit: ?SBA, help with tubing ? Sit-supine: SBA, Help with tubing ? Sit-stand: SBA? Stand-sit: SBA ? Provided skilled cues and instruction on performance and technique throughout. ? GAIT? Assistive Device: FWW, with w/c follow by nurse Mac ? Weight bearing: Full Assist: CGA and assist with O2, catheter and nephrostomy tubes? Distance:? 120-150ft x 4, with short 2-3 minutes seated breaks due to SOB ? Exercises: ? Began session with review of ankle pumps x 10 reps, bridging x 5 reps and SLR x 5 reps each. ASSESSMENT:? Tolerated session very well. Nurse Mac did turn O2 supplement down to .5 during ambulation. PLAN: Continue to focus on ADL function and ambulation, as per supervising PT's POC. TREATMENT CODE/TIME: [id number], 10:30 to 11:05 (35')
[2023-04-09] MEDS: Bisacodyl 5 MG TABEC PO (13:19)
[2023-04-09] MEDS: Acetaminophen 325 MG TAB 650 MG PO (15:00)
--- NOTE | 2023-04-09 16:06 | W.PALPGNOTE ---
Date of service: 04/10/23 Time of Service: 07:00 Assessment and Plan Assessment and plan (1) Blood loss anemia: Status: Acute Assessment and plan: Worsening anemia before I left staff states that his H&H was down to 7.26/21.5. Also his white count has gone up to 27. (2) Pain in gums: Status: Acute Assessment and plan: Stable at this time (3) Malignant neoplasm metastatic from bladder: Status: Acute Assessment and plan: Wants to be seen by the oncology team to determine possible treatments (4) Palliative care patient: Status: Acute Assessment and plan: DAughter is concerned he should be transitioned to Hospice, but Sae does not want to be at this time Long discussion with daughter Maricarmen. She is not able to be at meeting but we spoke last PM and is on speaker phone this AM. Jesus wants to stick with the plan which is that he goes to a rehab center, he meets with the oncology team, and he considers his options. Family is concerned about his new tremors. They are concerned specifically about his antibiotic. I saw that Dr. Lees was considering changing his antibiotic. I spoke to her and she will today. He has been constipated and has not had bowel movements in 3 days. Nursing needs to work on this He states right now that his pain is 6 out of 10. He may need adjustment with his oxycodone, I saw that that was just recently done so that might need some time Weakness does not appear to be improving but he is cognitively much more intact. We redid his HIPAA form and his Sister Maryjane's 2 daughters Maricarmen and Patricia are on this. I did speak to Dr. Lees regarding his care. Subjective Subjective Interval history since last seen: Long discussion with daughter Maricarmen. She is not able to be at meeting but we spoke last PM and is on speaker phone this AM. Jesus states that he is clear than when he first came into the hospital. His weakness has not improved but he has gained some weight. He understands that his bleeding through the catheter from his bladder cancer is worse. He is required 3 blood transfusions this admission. Unfortunately today his H&H are low. We also completed the HIPAA form. He had Maricarmen Gomez, and his Sister Maryjane on this. He states that his pain is 6 out of 10 at times. Sometimes when nursing comes in and asks about his pain he says that he has it mostly so he can stay on top of it. It is made a big difference. He continues with the bladder spasms and is hoping that a change in medication might be helpful Daughters are concerned about his tremor Last bowel movement was 3 days ago Exam Narrative Exam Narrative: 68-year-old man alert and oriented x 3. I did see a tremor in his right arm that was short-lived. His heart was regular. His lungs are clear but not very good air movement. Abdomen mildly tender. There is definite blood in the catheter. Mood clear and direct Objective Last Vital Signs Temp 98.1 F 04/09/23 15:31 Pulse 95 H 04/09/23 15:31 Resp 18 04/09/23 15:31 BP 124/73 04/09/23 15:31 Pulse Ox 93 04/09/23 15:31 Laboratory Results - last 24 hr 04/09/23 06:16 WBC 25.68 H* RBC 2.72 L Hgb 7.6 L Hct 22.5 L MCV 83 MCH 27.9 MCHC 33.8 RDW 21.4 H Plt Count 370 MPV 8.6 Immature Gran % 0.0 Neutrophils % 94.0 Lymphocytes % 3.0 Monocytes % 3.0 Eosinophils % 0.0 Basophils % 0.0 Nucleated RBC % 0.0 Absolute Neutrophils 24.14 H Absolute Lymphocytes 0.77 L Absolute Monocytes 0.77 Absolute Eosinophils 0.00 Absolute Basophils 0.00 RBC Morphology See Below Hypochromasia 2+ Anisocytosis 2+ Sodium 131 L Potassium 4.3 Chloride 96 L Carbon Dioxide 25.7 Anion Gap 9.3 BUN 23 H Creatinine 0.9 Est GFR (CKD-EPI 2020) 93.61 Glucose 221 H Calcium 8.7 Magnesium 1.9
--- NOTE | 2023-04-09 17:35 | PGE_ITS ---
Date of Service Date of service: 04/09/23 Time of Service: 17:35 Assessment and Plan Assessment and plan (1) Septic shock: Status: Resolved Assessment and plan: Suspect that the source was urinary (on admission), but that the urine C&S did not capture the bacterial growth above the level of obstruction. I have repeated urinalyses from both the UA and nephrostomy. Irwin catheter is growing 10-50,000 CFU of enterococci. At this point, I would not change antibiotics as I feel this could be colonization/bacteriuria and not a true UTI. Consider fosfomycin. Also did have pseudomonas in the sputum. Blood cultures negative. S/p nephrostomy tube. Improving on cefepime. Plan to transition to levofloxacin on discharge; will investigate that duration of therapy. WBC is improving on cefepime. (2) Leukocytosis, unspecified: Status: Acute Assessment and plan: As above Qualifiers: Leukocytosis type: bandemia Qualified Code(s): D72.825 - Bandemia (3) Blood loss anemia: Status: Acute Assessment and plan: -secondary to bladder cancer causing hematuria. S/p 3 units pRBCs on this admission; H/H stable. Repeat H/H in am. (4) Hydronephrosis, left: Status: Acute Assessment and plan: [place] [facility] [place]. (5) Malignant neoplasm metastatic from bladder: Status: Acute Assessment and plan: Evaluated by urology, now s/p irwin and nephrostomy tube. Patient is interested in palliative chemotherapy and will follow up [place]. Meeting with palliative care tomorrow Will discuss change of oxybutyinin to mirabegron tomorrow. Increaes oxycontin to 30 mg PO BID. (6) Acute exacerbation of chronic obstructive pulmonary disease (COPD): Status: Resolved Assessment and plan: Finished prednisone taper. Continue duonebs, symbicort, spiriva. Still requiring oxygen - obtain exercise oximetry if unable to wean O2. (7) Type 2 diabetes mellitus: Status: Chronic Assessment and plan: While FBG was 351 this am, the remainder of blood sugars were 90 and 75. Increase lantus. Continue sensitive SSI. Qualifiers: Diabetes mellitus [facility] insulin use: without [facility] use Diabetes mellitus complication status: with other specified complication Qualified Code(s): E11.69 - Type 2 diabetes mellitus with other specified complication (8) Essential hypertension: Status: Chronic Assessment and plan: No change in tx. (9) Pain in gums: Status: Acute Assessment and plan: Imaging w/o abscesses/osteo. Continue oragel (10) DVT prophylaxis: Status: Acute Assessment and plan: Sc heparin (11) Discharge planning issues: Status: Acute Assessment and plan: DNR/DNI Possible discharge to SNF tomorrow. Subjective Subjective Interval history since last seen: Mr Johnson and I sat down and talked about 1. gum pain - better today. Ora gel yesterday helped. 2. Breathing - it is not worse than normal. He is on 1 L of O2 saturating 95%. We talked about attempting to wean him off of it. 3. Tremors - these persist despite me stopping marinol. We discussed how these could be due to oxybutynin and that I will talk to Dr Knight about changing it to something else tomorrow when he is in house. The patient was on mirabegron as outpatient. He is also on methylphenidate. 4. He is still constipated. He is going to try milk of magnesia tonight and, if that does not work, he will take a suppository tomorrow. 5. Pain in the bladder. We discussed that I had increased oxycontin to 30 mg BID. He continues to reports clotting which resolves with flushing the catheter. 6. We discussed Dr Torres's visit which is planned for tomorrow. Exam Narrative Exam Narrative: General: a pleasant male who is on 1 L of O2 by NC, pursed lip breathing, looks better than yesterday. HEENT: EOMI, MMM Heart: RRR, no m/r/g Lungs: Diminished breath sounds B Abdomen: soft, tender in RLQ, nondistended : L-sided nephrostomy tube draining clear yellow urine; Irwin catheter with green end man colored red urine Extremities: no edema BLEs Objective Last Vital Signs Temp 36.7 C 04/09/23 15:31 Pulse 94 H 04/09/23 16:12 Resp 18 04/09/23 15:31 BP 124/73 04/09/23 15:31 Pulse Ox 95 01/21/24 16:12 Laboratory Results - last 24 hr 04/09/23 06:16 WBC 25.68 H* RBC 2.72 L Hgb 7.6 L Hct 22.5 L MCV 83 MCH 27.9 MCHC 33.8 RDW 21.4 H Plt Count 370 MPV 8.6 Immature Gran % 0.0 Neutrophils % 94.0 Lymphocytes % 3.0 Monocytes % 3.0 Eosinophils % 0.0 Basophils % 0.0 Nucleated RBC % 0.0 Absolute Neutrophils 24.14 H Absolute Lymphocytes 0.77 L Absolute Monocytes 0.77 Absolute Eosinophils 0.00 Absolute Basophils 0.00 RBC Morphology See Below Hypochromasia 2+ Anisocytosis 2+ Sodium 131 L Potassium 4.3 Chloride 96 L Carbon Dioxide 25.7 Anion Gap 9.3 BUN 23 H Creatinine 0.9 Est GFR (CKD-EPI 2020) 93.61 Glucose 221 H Calcium 8.7 Magnesium 1.9 Time Spent with Patient Time Spent with Patient: 35-49 minutes Time was spent: preparing to see the patient(eg.review tests), obtaining and/or reviewing separately otained hiistory, ordering medications,tests, procedures, referring, communicating with other health professional healthcare representative, indepentently interpreting results, counseling the patient and care coordination
[2023-04-09] MEDS: Milk of Magnesia 30 ML CUP PO (20:29)
[2023-04-09] MEDS: Melatonin 3 MG TAB PO (20:30)
[2023-04-09] MEDS: Pantoprazole 20 MG TABCR PO (20:31)
[2023-04-09] MEDS: Simvastatin 10 MG TAB PO (20:31)
[2023-04-09] MEDS: Insulin Glargine 300 UNITS/3 ML PEN 7 UNITS SC (21:30)
[2023-04-10] VITALS (16 sets, daily range): BP systolic 120–181; BP diastolic 69–103; PULSE 75–110; RESP 2–22; TEMP 36.4–37.1; O2SAT 90–100
--- NOTE | 2023-04-10 | DI.RAD_ITS ---
Exam(s) XR PORTABLE CHEST AP EXAM: XR PORTABLE CHEST AP CLINICAL HISTORY: hypoxia TECHNIQUE: 2D digital imaging was performed. COMPARISON: CR XR PORTABLE CHEST AP from 03/29/2023 FINDINGS: LUNGS: Severe emphysematous and fibrotic changes. No infiltrates visible. No pleural abnormality se en. HEART: Normal size. AORTA: Normal diameter. BONES: Unremarkable for age. Soft tissues: Unremarkable. IMPRESSION: Severe emphysematous changes. No acute findings. DATA REPOSITORY: RADIATION DOSE DELIVERED:
[2023-04-10] MEDS: oxyCODONE 5 MG TAB PO ×3 (00:23→18:35)
[2023-04-10] MEDS: MORPHine 4 MG/ML SYR IVP ×5 (01:07→19:55)
[2023-04-10] MEDS: CEFEPIME 2 GM in Normal Saline 100 ML IVPB ×2 (01:08→16:03)
[2023-04-10] MEDS: Normal Saline Flush 10 ML SYR IVP ×8 (01:11→21:36)
[2023-04-10 06:51] LABS: Abs Immature Grans 0.36 10^3/uL (0.0-0.06); Absolute Lymphocyte Count 0.85 10^3/uL (1.2-3.4); Absolute Monocyte Count 0.99 10^3/uL (0.1-0.8); Basophils % 0.3; Eosinophils % 0.5; HCT 21.5 % (40.0-50.0); HGB 7.2 g/dL (13.5-17.5); Immature Grans % 1.3; Lymphocytes % 3.1; MCH 27.5 pg (27.0-33.0); MCHC 33.5 % (32.0-36.0); MCV 82 fL (80-95); MPV 8.3 fL (8.0-11.0); Monocytes % 3.6; Neutrophils % 91.2; Platelet Count 374 10^3/uL (130-400); RBC 2.62 10^6/uL (4.36-5.78); RDW 21.4 % (11.8-14.1); RDW-SD 65.1 fL
[2023-04-10 06:57] LABS: Absolute Basophil Count 0.08 10^3/uL (0.0-0.2); Absolute Eosinophil Count 0.14 10^3/uL (0.0-0.7); Absolute Neutrophil Count 25.14 10^3/uL (1.2-6.7); WBC 27.57 10^3/uL (4.4-10.8)
[2023-04-10 07:11] LABS: Anion Gap 7.2 mmol/L (3-11); BUN 20 mg/dL (7-18); CO2 28.8 mmol/L (21.0-32.0); CREATININE 0.8 mg/dL (0.70-1.30); Calcium 8.5 mg/dL (8.5-10.1); Chloride 95 mmol/L (98-107); Glucose 280 mg/dL (74-106); Magnesium 2.1 mg/dL (1.8-2.4); Potassium 3.9 mmol/L (3.5-5.1); Sodium 131 mmol/L (136-145)
[2023-04-10 07:24] LABS: Anisocytosis 2+; Diff Comment Diff Reviewed
[2023-04-10] MEDS: Nicotine 14 MG/24 HR PATCH TD (08:17)
[2023-04-10] MEDS: Methylphenidate 10 MG TAB 5 MG PO (08:17)
[2023-04-10] MEDS: Senna TAB 1 TAB PO ×2 (08:18→21:35)
[2023-04-10] MEDS: Ferrous Sulfate 325 MG TAB PO ×2 (08:19→21:36)
[2023-04-10] MEDS: guaiFENesin 600 MG TABCR PO ×2 (08:20→21:34)
[2023-04-10] MEDS: Multivitamin w/Minerals TAB 1 TAB PO (08:20)
[2023-04-10] MEDS: Magnesium Oxide 400 MG TAB PO ×3 (08:20→21:34)
[2023-04-10] MEDS: Tamsulosin 0.4 MG CAPCR PO (08:20)
[2023-04-10] MEDS: Oxybutynin 5 MG TAB PO (08:21)
[2023-04-10] MEDS: Metoprolol 12.5 MG TAB PO ×2 (08:22→21:34)
[2023-04-10] MEDS: Docusate Sodium 100 MG CAP PO ×2 (08:22→21:34)
[2023-04-10] MEDS: Insulin Aspart 300 UNITS/3 ML PEN SC ×2 (08:23→16:47)
[2023-04-10] MEDS: Polyethylene Glycol 3350 17 GM PACKET PO ×2 (08:23→21:33)
--- NOTE | 2023-04-10 08:49 | CMPROGNOTE_ITS ---
Date of service: 04/10/23 Time of Service: 08:50 Care Management Progress Note Progress Note Text Progress Note Text: S/O: Sae was sitting up in bed when CM met with him. He appeared to be in good spirits and was laughing and joking with the LNAs. Sae's H&H have continued to drop and he again required a blood transfusion today. He informed CM that his pain is better controlled and he is doing well with PT. Sae requested that CM see if it would be possible for him to transfer to [facility] as opposed to [place] as it is much closer. CM contacted the [facility] Room [facility] Super[facility] and was able to make the change to [place]. Sae was very happy and appreciative He is scheduled to transfer tomorrow. A: Jesus is a 68 year old man admitted on with sepsis P: Anticipate Jesus will be transferred to [facility] for short term rehab prior to returning home, likely tomorrow. The facility is requesting that nephrostomy tube supplies and dressings be sent with Sae. He will follow up with the facility providers and plan of care. CM will follow and assess for discharge needs.
[2023-04-10] MEDS: Tiotropium Bromide-Respimat 10 PUFF INH 2 PUFF IH (09:33)
[2023-04-10] MEDS: Budesonide/Formoterol 160/4.5 6 GM 60 PUFF INH IH ×2 (09:33→21:53)
[2023-04-10] MEDS: Albuterol/Ipratropium 3 ML UPD VIAL UPD ×4 (09:33→21:53)
--- NOTE | 2023-04-10 12:05 | PTTR_ITS ---
Date of service: 04/10/23 Time of Service: 11:10 PT Notes Visit Reasons: Sepsis syndrome, Metastatic bladder cancer Inpatient Physical Therapy Treatment Note [facility] Date: 04/10/23 PRECAUTIONS: Fall, standard, activity as tolerated. SUBJECTIVE: Patient is encountered up walking in the hallway with respiratory therapy. States that he is feeling not the greatest today. AFTERNOON: Patient reports excruciating pain, extreme fatigue - refuses therapy in the afternoon. OBJECTIVE: Walking SBA with respiratory therapy, O2 tank, wheelchair follow, continuous SpO2 monitoring. ? PAIN: none reported VITALS: monitored continuously by respiratory therapist. ? BED MOBILITY/TRANSFERS? Rolling L/R: not assessed Supine-sit: not assessed ? Sit-supine: not assessed ? Sit-stand: not assessed ? Stand-sit: not assessed ? Bed-Chair: not assessed ? Chair-bed: not assessed Provided skilled cues and instruction on performance and technique throughout. ? Therapeutic Exercises ([id number]): Direct one-on-one instruction in therapeutic exercises to develop strength, endurance, range of motion and flexibility. Ambulation ? Assistive Device: FWW? Weight bearing: full Assist: SBA, assist with O2 tank, wheelchair follow. ? Distance:? 300 feet? Deviation: gait largely unremarkable. Patient demonstrates good pursed lip breathing, symmetrical step length with heel-toe step pattern. Patient does report fatigue at end of treatment session. ? Provided skilled instruction in proper exercise performance Provided skilled manual cues to facilitate proper muscle recruitment and/or f orm. ASSESSMENT:? Patient tolerates therapy well PLAN: Continue global strengthening per plan of care. TREATMENT CODE/TIME: 12 minutes beginning at 11:10
--- NOTE | 2023-04-10 14:32 | W.PM.PROGNOT ---
Date of Service Date of service: 04/10/23 Time of Service: 10:30 Assessment and Plan Assessment and plan (1) Septic shock: Status: Resolved Assessment and plan: Suspect that the source was urinary (on admission), but that the urine C&S did not capture the bacterial growth above the level of obstruction. I have repeated urinalyses from both the UA and nephrostomy. Irwin catheter is growing 10-50,000 CFU of enterococci. At this point, I would not change antibiotics as I feel this could be colonization/bacteriuria and not a true UTI. Consider fosfomycin. Also did have pseudomonas in the sputum. Blood cultures negative. S/p nephrostomy tube. Improving on cefepime. Will discuss abx plan with urology. Plan to transition to levofloxacin on discharge; will investigate that duration of therapy. WBC is improving on cefepime. (2) Leukocytosis, unspecified: Status: Acute Assessment and plan: As above Qualifiers: Leukocytosis type: bandemia Qualified Code(s): D72.825 - Bandemia (3) Blood loss anemia: Status: Acute Assessment and plan: -secondary to bladder cancer causing hematuria. Receiving his 4th unit of pRBCs on this admission today. Repeat H/H in am. (4) Hydronephrosis, left: Status: Acute Assessment and plan: [place] [facility] Cx [place]. (5) Malignant neoplasm metastatic from bladder: Status: Acute Assessment and plan: Evaluated by urology, now s/p irwin and nephrostomy tube. Patient is interested in palliative chemotherapy and will follow up with [place] [facility] [place]. Meeting with palliative care tomorrow Changed oxybutynin to myrbetriq. Continue oxycontin to 30 mg PO BID. (6) Acute exacerbation of chronic obstructive pulmonary disease (COPD): Status: Resolved Assessment and plan: Finished prednisone taper. Continue duonebs, symbicort, spiriva. Still requiring oxygen - I suspect a fluid overload component possibly - await proBNP and obtain exercise oximetry if unable to wean O2. (7) Type 2 diabetes mellitus: Status: Chronic Assessment and plan: Increase lantus. Continue sensitive SSI. Qualifiers: Diabetes mellitus long term care phlebotomist insulin use: without long term care phlebotomist use Diabetes mellitus complication status: with other specified complication Qualified Code(s): E11.69 - Type 2 diabetes mellitus with other specified complication (8) Essential hypertension: Status: Chronic Assessment and plan: No change in tx. (9) Pain in gums: Status: Acute Assessment and plan: Imaging w/o abscesses/osteo. Continue oragel (10) DVT prophylaxis: Status: Acute Assessment and plan: Sc heparin (11) Discharge planning issues: Status: Acute Assessment and plan: DNR/DNI Possible discharge to SNF tomorrow. Subjective Subjective Interval history since last seen: Mr Johnson feels better today. He states his pain is less. He denies dizziness, CP, SOB is about the same, denies n/v. While I was talking to him, [facility] was also [facility] and participating in the discussion. She confirmed that the patient is expected to establish care with [facility] [place]. We discussed the plan for a blood transfusion today, change from oxybutynin to myrbetriq, obtaining a CXR since the patient is still on O2 and is not on it at baseline. He met with Dr Torres this morning - would like to meet with oncology to discuss his options prior to making any decisions about hospice. Exam Narrative Exam Narrative: General: a pleasant male who is on 1 L of O2 by NC, pursed lip breathing, laying nearly flat in bed, appears more comfortable HEENT: EOMI, MMM Heart: RRR, no m/r/g Lungs: Diminished breath sounds B Abdomen: soft, tender in RLQ, nondistended : L-sided nephrostomy tube draining clear yellow urine; Irwin catheter with lead medical technologist colored red urine Extremities: no edema BLEs Objective Last Vital Signs Temp 36.5 C 04/10/23 13:58 Pulse 85 04/10/23 13:58 Resp 16 04/10/23 13:58 BP 130/74 04/10/23 13:58 Pulse Ox 94 04/10/23 13:58 Laboratory Results - last 24 hr 04/08/23 04/10/23 08:42 06:19 WBC 27.57 H* RBC 2.62 L Hgb 7.2 L Hct 21.5 L MCV 82 MCH 27.5 MCHC 33.5 RDW 21.4 H Plt Count 374 MPV 8.3 Immature Gran % 1.3 Neutrophils % 91.2 Lymphocytes % 3.1 Monocytes % 3.6 Eosinophils % 0.5 Basophils % 0.3 Nucleated RBC % 0.0 Absolute Neutrophils 25.14 H Absolute Lymphocytes 0.85 L Absolute Monocytes 0.99 H Absolute Eosinophils 0.14 Absolute Basophils 0.08 RBC Morphology See Below Anisocytosis 2+ Sodium 131 L Potassium 3.9 Chloride 95 L Carbon Dioxide 28.8 Anion Gap 7.2 BUN 20 H Creatinine 0.8 Est GFR (CKD-EPI 2020) 97.00 Glucose 280 H Calcium 8.5 Magnesium 2.1 Patient ABO/Rh B Positive Antibody Screen NEGATIVE Crossmatch See Detail Objective Narrative Objective Narrative: CXR: Severe emphysematous changes. No acute findings Time Spent with Patient Time Spent with Patient: 35-49 minutes Time was spent: preparing to see the patient(eg.review tests), obtaining and/or reviewing separately otained hiistory, ordering medications,tests, procedures, referring, communicating with other health healthcare applications analyst, indepentently interpreting results, counseling the patient and care coordination
--- NOTE | 2023-04-10 15:05 | PGE_ITS ---
Date of Service Date of service: 04/07/23 Time of Service: 16:00 Assessment and Plan Assessment and plan (1) Malignant neoplasm metastatic from bladder: Status: Acute (2) Hematuria: Status: Acute Assessment and plan: Continue with hand irrigation of the catheter. As long as we can keep his catheter draining, I do not believe we will need continuous bladder irrigation in this gentleman. Qualifiers: Hematuria type: gross Qualified Code(s): R31.0 - Gross hematuria Subjective Subjective Interval history since last seen: Has been having increased difficulty emptying his bladder. His urine has been bloody with clots. Objective Last Vital Signs Temp 36.8 C 04/10/23 14:58 Pulse 94 H 04/10/23 14:58 Resp 18 04/10/23 14:58 BP 151/82 H 04/10/23 14:58 Pulse Ox 97 04/10/23 14:58 Laboratory Results - last 24 hr 04/08/23 04/10/23 08:42 06:19 WBC 27.57 H* RBC 2.62 L Hgb 7.2 L Hct 21.5 L MCV 82 MCH 27.5 MCHC 33.5 RDW 21.4 H Plt Count 374 MPV 8.3 Immature Gran % 1.3 Neutrophils % 91.2 Lymphocytes % 3.1 Monocytes % 3.6 Eosinophils % 0.5 Basophils % 0.3 Nucleated RBC % 0.0 Absolute Neutrophils 25.14 H Absolute Lymphocytes 0.85 L Absolute Monocytes 0.99 H Absolute Eosinophils 0.14 Absolute Basophils 0.08 RBC Morphology See Below Anisocytosis 2+ Sodium 131 L Potassium 3.9 Chloride 95 L Carbon Dioxide 28.8 Anion Gap 7.2 BUN 20 H Creatinine 0.8 Est GFR (CKD-EPI 2020) 97.00 Glucose 280 H Calcium 8.5 Magnesium 2.1 Patient ABO/Rh B Positive Antibody Screen NEGATIVE Crossmatch See Detail Insert Bladder Catheter Text: The patient was seen at the bedside. He was placed in the supine position. His genitalia was prepped with Betadine. 2% Xylocaine jelly was instilled into the urethra to act as a local anesthetic. A 20 Maltese catheter was passed through the urethra into the bladder. The catheter balloon was inflated with 10 cc of sterile water. Hand irrigation of the catheter was then performed with over 500 cc of saline and multiple clots were evacuated. After irrigation, the catheter drainage was pink-tinged. He tolerated this procedure well. Time Spent with Patient Time Spent with Patient: 25-34 minutes Time was spent: referring, communicating with other health care support representative and other
[2023-04-10 15:19] LABS: Lab Add On Test DONE
[2023-04-10 15:43] LABS: NT-proBNP 2158 pg/mL (<300)
[2023-04-10] MEDS: Bisacodyl 10 MG SUPP PR (21:32)
[2023-04-10] MEDS: Milk of Magnesia 30 ML CUP PO (21:33)
[2023-04-10] MEDS: Pantoprazole 20 MG TABCR PO (21:34)
[2023-04-10] MEDS: Bisacodyl 5 MG TABEC PO (21:34)
[2023-04-10] MEDS: Simvastatin 10 MG TAB PO (21:35)
[2023-04-10] MEDS: Insulin Glargine 300 UNITS/3 ML PEN 10 UNITS SC (22:57)
[2023-04-11] MEDS: Normal Saline Flush 10 ML SYR IVP ×7 (00:10→11:34)
[2023-04-11] MEDS: MORPHine 4 MG/ML SYR IVP ×4 (00:11→11:33)
[2023-04-11] MEDS: oxyCODONE 5 MG TAB PO (02:47)
[2023-04-11] MEDS: CEFEPIME 2 GM in Normal Saline 100 ML IVPB (03:34)
[2023-04-11] MEDS: Albuterol 2.5 MG/3 ML INH SOLN VIAL UPD (04:36)
[2023-04-11 04:48] VITALS: PULSE 84; RESP 18; RESP 6; RESP 9; O2SAT 97
[2023-04-11 07:42] LABS: Basophils % 0.4; Eosinophils % 0.1; HCT 29.3 % (40.0-50.0); HGB 9.9 g/dL (13.5-17.5); Lymphocytes % 2.3; MCH 27.4 pg (27.0-33.0); MCHC 33.8 % (32.0-36.0); MCV 81 fL (80-95); MPV 8.4 fL (8.0-11.0); Monocytes % 3.1; Neutrophils % 93.1; Platelet Count 418 10^3/uL (130-400); RBC 3.61 10^6/uL (4.36-5.78); RDW-SD 60.2 fL
[2023-04-11 07:46] LABS: Absolute Basophil Count 0.12 10^3/uL (0.0-0.2); Absolute Eosinophil Count 0.03 10^3/uL (0.0-0.7); Absolute Lymphocyte Count 0.67 10^3/uL (1.2-3.4); Absolute Neutrophil Count 27.06 10^3/uL (1.2-6.7); WBC 29.07 10^3/uL (4.4-10.8)
[2023-04-11 07:51] VITALS: BP 145/74; PULSE 92; RESP 18; TEMP 36.4; O2SAT 93
[2023-04-11] MEDS: Nicotine 14 MG/24 HR PATCH TD (08:03)
[2023-04-11] MEDS: Tamsulosin 0.4 MG CAPCR PO (08:04)
[2023-04-11] MEDS: Methylphenidate 10 MG TAB 5 MG PO (08:04)
[2023-04-11] MEDS: Ferrous Sulfate 325 MG TAB PO (08:04)
[2023-04-11] MEDS: Docusate Sodium 100 MG CAP PO (08:04)
[2023-04-11] MEDS: Metoprolol 12.5 MG TAB PO (08:04)
[2023-04-11] MEDS: guaiFENesin 600 MG TABCR PO (08:04)
[2023-04-11 08:05] LABS: BUN 19 mg/dL (7-18); CREATININE 0.8 mg/dL (0.70-1.30); Chloride 95 mmol/L (98-107); Glucose 191 mg/dL (74-106); Magnesium 2.1 mg/dL (1.8-2.4); Potassium 3.6 mmol/L (3.5-5.1); Sodium 132 mmol/L (136-145)
[2023-04-11] MEDS: Mirabegron 25 MG TABCR PO (08:05)
[2023-04-11] MEDS: Senna TAB 1 TAB PO (08:05)
[2023-04-11] MEDS: Magnesium Oxide 400 MG TAB PO (08:05)
[2023-04-11] MEDS: Multivitamin w/Minerals TAB 1 TAB PO (08:05)
[2023-04-11 08:12] LABS: Diff Comment Agrees w/ Instrument; RBC Morphology Normal
[2023-04-11] MEDS: Insulin Aspart 300 UNITS/3 ML PEN SC (08:24)
[2023-04-11 08:26] VITALS: PULSE 84; RESP 9; O2SAT 91
[2023-04-11] MEDS: Albuterol/Ipratropium 3 ML UPD VIAL UPD ×2 (08:26→12:31)
[2023-04-11] MEDS: Budesonide/Formoterol 160/4.5 6 GM 60 PUFF INH IH (08:27)
[2023-04-11] MEDS: Tiotropium Bromide-Respimat 10 PUFF INH 2 PUFF IH (08:28)
--- NOTE | 2023-04-11 10:31 | W.PM.DS.N ---
Date of service: 04/11/23 Time of Service: 10:32 DS: Diagnosis Discharge Diagnosis (1) Sepsis syndrome: Status: Acute (2) Septic shock: Status: Resolved (3) Upper urinary tract infection: Status: Acute (4) Hydronephrosis, left: Status: Acute (5) Obstructive uropathy: Status: Acute (6) Blood loss anemia: Status: Acute (7) Malignant neoplasm metastatic from bladder: Status: Acute (8) Hypoxia: Status: Acute (9) Leukocytosis, unspecified: Status: Acute (10) Acute exacerbation of chronic obstructive pulmonary disease (COPD): Status: Resolved (11) Hematuria: Status: Acute (12) Pain in gums: Status: Acute (13) Essential hypertension: Status: Chronic (14) Hyperlipidemia: Status: Chronic (15) Type 2 diabetes mellitus: Status: Chronic (16) Hyponatremia: Status: Acute (17) Hypomagnesemia: Status: Acute (18) Malnutrition: Status: Acute (19) Headache: Status: Acute (20) Constipation: Status: Acute Discharge Plan Disposition Patient Disposition: [facility] Facility(SNF) Condition: Stable Condition: Improving Discharge Details Reason For Visit: Sepsis syndrome, Metastatic bladder cancer Admit Date/Time: 03/27/23 21:52 Admit Provider: Jonathon Henry Attending Provider: Jonathon Henry Primary Care Provider: Lizet Monsalve Hospital Course Hospital Course: Mr Johnson is a 68 year old male with PMHx of metastatic bladder cancer with metastases to lung and bone, as well as h/o IDDM2, non-oxygen dependent COPD, HTN, who was admitted to [facility] ICU under the hospitalist service for sepsis due to urinary tract infection as well as symptomatic anemia, having presented with weakness, near-syncope, gross hematuria. While the source of sepsis is suspected to have been urinary, the patient had evidence of obstructive uropathy due to his malignancy with L hydronephrosis and hydroureter seen on ultrasound 03/28/2023, explaining why urine culture was negative, it is suspected that the infection was above the level of obstruction. He was empirically treated with Vancomycin (03/27/23-03/29/23) and Ceftriaxone 03/27/2023-03/28/2023. Urology was consulted and recommended placement of a nephrostomy tube, which occurred on 03/31/23 ([facility] IR). Due to evidence of COPD exacerbation, the patient's antibiotics were adjusted to Cefepime (03/28/2023 - 04/11/23) and Doxycycline (03/28/23 - 04/01/23). He was also covered with steroids and nebulizer treatments. He finished his sterois. He does have persistent leucocytosis, but this is now improving (and probably at least partially had to do with use of steroids - now discontinued). He received a total of 4 units of pRBCs on this admission for his anemia due to acute blood loss of hematuria, and his hemoglobins will need to be regularly followed. His H/H on the day of discharge is 9.9/29.3. Due to his severe bladder spasms in setting of clotting/hematuria, the patient had a irwin catheter placed which will need to be regularly irrigated. The patient will need to follow up with the [place] urology for the catheter care as well as for the nephrostomy tube. Myrbertriq appears to be a better drug for the spasms for him than oxybutynin. We did increase his long acting oxycodone to 30 mg PO BID. He should receive 1 week of levofloxacin on discharge. He is being discharged with prn oxygen - while he is on room air right now, he has occasionally needed up to 2 L of O2 by MI For his COPD. He should remain on scheduled + prn nebulizer treatments. He was evaluated by palliative care and will benefit from follow up with them, but defers any decision making as far as end-of-life care until actually meeting with [facility] oncology. He is ready for discharge to a subacute rehab facility today with 1 more week of levofloxacin. Care for patient as well as completion of his discharge summary on day of discharge took 45 minutes. Home Meds and New Rx's Prescriptions: New acetaminophen 325 mg Tablet 650 mg PO Q4H PRN PRNQty: 0 0RF ipratropium-albuterol 0.5 mg-3 mg(2.5 mg base)/3 mL Solution For Nebulization 3 ml UPD QID Qty: 0 0RF albuterol sulfate 2.5 mg /3 mL (0.083 %) Solution For Nebulization 2.5 mg UPD Q2H PRN PRNQty: 0 0RF simvastatin 10 mg Tablet 10 mg PO QPM Qty: 30 0RF magnesium oxide 400 mg (241.3 mg magnesium) Tablet 400 mg PO TID Qty: 0 0RF bisacodyl 10 mg Suppository 10 mg UT DAILY PRN PRNQty: 0 0RF morphine 10 mg/5 mL Solution 5 - 10 mg PO Q4H PRN MDD 60 mg PRN (Reason: dyspnea) Qty: 100 0RF docusate sodium [Colace] 100 mg Capsule 100 mg PO BID Qty: 0 0RF lidocaine HCl 2 % Solution 15 ml PO QID PRN PRNQty: 0 0RF bisacodyl 5 mg Tablet,Delayed Release (Dr/Ec) 5 mg PO DAILY PRN PRNQty: 0 0RF insulin aspart U-100 100 unit/mL (3 mL) Insulin Pen 0 unit subcut 0800,1200,1700,2200 Qty: 0 0RF insulin glargine [Lantus Solostar U-100 Insulin] 100 unit/mL (3 mL) Insulin Pen 10 unit subcut HS Qty: 0 0RF guaifenesin [Mucus Relief ER] 600 mg Tablet Extended Release 12hr 600 mg PO BID Qty: 0 0RF sennosides [Senokot] 8.6 mg Tablet 8.6 mg PO BID Qty: 0 0RF polyethylene glycol 3350 17 gram Powder In Packet 17 g PO BID Qty: 0 0RF oxycodone [OxyContin] 30 mg Tablet,Oral Only,Ext.Rel.12 Hr 30 mg PO BID Qty: 6 0RF levofloxacin 750 mg tablet 750 mg PO Q24H Qty: 7 0RF Continued fluticasone propion-salmeterol [Advair Diskus] 1 EACH blister with device 1 puff Inhalation BID tiotropium bromide [Spiriva with HandiHaler] 18 MCG capsule, w/inhalation device 18 mcg Inhalation DAILY metformin [Glucophage] 850 MG tablet 1,000 mg PO BID Qty: 270 metoprolol tartrate [Lopressor] 50 MG tablet 25 mg PO BID Qty: 90 doxepin 3 mg tablet 3 mg PO QHS melatonin 3 mg tablet 3 mg PO HS PRN methylphenidate HCl 5 mg tablet 5 mg PO DAILY mirabegron 25 mg tablet extended release 24 hr 25 mg PO DAILY sgmrtpeemcrj-[id number]-[id number] [Centrum Silver] 1 tab PO DAILY AM nicotine 14 mg/24 hr patch 24 hour 1 patch transdermal DAILY pantoprazole [Protonix] 20 mg tablet,delayed release (DR/EC) 20 mg PO QHS tamsulosin 0.4 mg PO .QD Changed ferrous sulfate [Feosol] 325 mg (65 mg iron) tablet 325 mg PO BID Qty: 0 0RF Rx Instructions: 325 mg orally Monday, Monday, and Monday; docusate sodium [Colace] 100 mg capsule 100 mg PO BID Qty: 0 0RF oxycodone 5 mg tablet 5 - 10 mg PO Q6H PRNQty: 24 0RF Patient Comments: 5-10mg q 6 PRN Discontinued simvastatin [Zocor] 10 MG tablet 40 mg PO DAILY Qty: 90 Patient Comments: QHS aspirin 325 MG tablet 1 tab PO DAILY Qty: 90 Hold Instructions: Changed by Provider Combivent Respimat 4 GM mist 1 puff Inhalation QID Qty: 1 amlodipine 5 mg tablet 5 mg PO DAILY insulin aspart U-100 [Novolog FlexPen U-100 Insulin] .ROUTE Discharge Instructions Instructions: Urinary Tract Infection in Men (ED), Irwin Catheter Placement and Care (DC), Nephrostomy Tube Care (DC), Anemia (DC), Chronic Lung Disease and Infection Prevention (DC), Nephrostomy Tube Insertion (DC) Additional Instructions: Follow up with the [place] urology service for your bladder cancer, nephrostomy and irwin catheter care. Follow up with [facility] oncology. Follow up with palliative care (either [facility] or locally). Finish your antibiotics as prescribed (levofloxacin x 1 week). Return to the hospital with any fever, bleeding, chest pain, or worsening shortness of breath. Referrals: HEMATOLOGY/ONC,[facility] [OTHER] - Activity:: Activity as Tolerated Equipment/Supplies:: No Equipment Needed Diet:: Carb Counting Discharge Orders Discharge Orders: Discharge Order (Routine); Ordered 04/11/23 Ordered By: Arlyn Lees DS: Summary Time Spent with Patient providing and/or coordinating discharge services: Greater than 30 minutes Status at Discharge Functional status at discharge: uses cane/walker Overall status at discharge: patient is progressing back to baseline Mental Status: mental status grossly normal Speech and Movement: speech and movement normal Mood: congruent mood Affect: normal affect Quality:SDOH Health Related Social Needs: Health related social needs details [place] in [place], [place] living [place] while undergoing treatment for Bladder Cancer. Health related social needs details: Patient resides in [place], [place] in [place] living with his daughter while undergoing treatment for Bladder Cancer. Exam Narrative Exam Narrative: General: a pleasant male who is on RA (though still wearing a NC) , pursed lip breathing, coughing, wheezing, mildly dyspneic, appears more comfortable HEENT: EOMI, MMM Heart: RRR, no m/r/g Lungs: Rhonchorous, coughing Abdomen: soft, tender in RLQ, nondistended : L-sided nephrostomy tube draining clear yellow urine; Irwin catheter with leach runner colored red urine Extremities: no edema BLEs Psych Mental Status: mental status grossly normal Speech and Movement: speech and movement normal Mood: congruent mood Affect: normal affect DS: Data Vitals/I&O Vitals and I&O: Vital Signs Temperature 36.4 C L 04/11/23 07:51 Temperature Source Tympanic 04/11/23 07:51 Pulse 84 04/11/23 08:26 Pulse Rhythm Regular 04/10/23 19:30 Pulse 81 03/28/23 19:35 Respiratory Rate 18 04/11/23 07:51 Respiratory Effort Non-Labored, Short of Breath 04/10/23 19:30 Respiratory Depth Shallow 04/10/23 19:30 Respiratory Pattern Tachypnea 04/10/23 19:30 Blood Pressure 145/74 H 04/11/23 07:51 Blood Pressure Mean 96 03/28/23 18:01 Blood Pressure Position Sitting 03/28/23 04:00 Pulse Oximetry 91 L 04/11/23 08:26 Oxygen Delivery Method Nasal Cannula 04/11/23 08:26 Oxygen Flow Rate 1 04/11/23 08:26 Pain Level 4 04/11/23 09:23 Comment Dully, achy, bilateral abdominal pain. 04/11/23 08:00 Intake & Output 04/10/23 04/10/23 04/11/23 11:59 23:59 11:59 Intake Total 100 / 995 895 / 995 700 / 700 Output Total 800 / 2200 1400 / 2200 1025 / 1025 Balance -700 / -1205 -505 / -1205 -325 / -325 Weight 49.895 kg Intake: IV 100 / 200 100 / 200 100 / 100 Oral 220 / 220 600 / 600 Blood Product 500 / 500 Rbc Leuko Reduced Unit 500 / 500 [id number] Injectate 75 / 75 lt flank 75 / 75 Other 0 / 0 Rbc Leuko Reduced Unit 0 / 0 [id number] Output: Drainage 350 / 600 250 / 600 300 / 300 lt flank 350 / 600 250 / 600 300 / 300 Urine 450 / 1600 1150 / 1600 725 / 725 Other: Urine Color Dark Red Dark Red Dark Red Urine Appearance Hematuria Hematuria Hematuria Stool Size Moderate Stool Characteristics Soft Formed Brown Data Completed and Pending Completed studies during hospitalization [Text1]: CXR: COPD. Spiculated nodular infiltrate noted in the right lung base. CT scan follow-up recommended to rule out malignancy. Echo 03/29/23: Limited study due to inadequate apical windows. LV is normal in size and function. LVEF is 55%. No segmental wall motion abnormalities. RV is normal in size and function. RVSP 36 mmHg. Mild mitral and tricuspid regurgitation. US renal 03/28/2023: 1. There is significant unilateral left-sided hydronephrosis and hydroureter due to a large malignant-appearing mass in the left side of the urinary bladder which is obstructing the left UVJ. 2. Small amount of free fluid is noted in Morison's pouch between the right kidney and the liver. CXR 03/29/2023: No focal consolidation. No findings to suggest congestive heart failure. CT facial bones 04/02/2023: No significant focal findings. CXR 04/05/2023: Hyperinflation. COPD. Improved appearance of the lung bases when compared to 03/29/2023. No confluent infiltrates nor pleural effusions on today's study. CXR 04/10/2023: Severe emphysematous changes. No acute findings. Labs on day of discharge: Labs from last 24 hours 04/11/23 04/10/23 04/08/23 07:05 06:19 08:42 WBC 29.07 H* RBC 3.61 L Hgb 9.9 L D Hct 29.3 L MCV 81 MCH 27.4 MCHC 33.8 RDW 20.0 H Plt Count 418 H MPV 8.4 Immature Gran % 1.0 Neutrophils % 93.1 Lymphocytes % 2.3 Monocytes % 3.1 Eosinophils % 0.1 Basophils % 0.4 Nucleated RBC % 0.0 Absolute Neutrophils 27.06 H Absolute Lymphocytes 0.67 L Absolute Monocytes 0.90 H Absolute Eosinophils 0.03 Absolute Basophils 0.12 RBC Morphology Normal Sodium 132 L Potassium 3.6 Chloride 95 L Carbon Dioxide 26.0 Anion Gap 11.0 BUN 19 H Creatinine 0.8 Est GFR (CKD-EPI 2020) 97.00 Glucose 191 H Calcium 9.0 Magnesium 2.1 NT-Pro-B Natriuret Pep 2158 H Add-On Test Request DONE Patient ABO/Rh B Positive Antibody Screen NEGATIVE Crossmatch See Detail Preliminary micro results at discharge 04/08/23 13:30 Urine Culture - Preliminary Urine - Reflex from Ua Enterococcus Species PFSH All Active Problems (Updated 04/11/23 @ 12:16 by Arlyn Lees MD) Constipation (Acute) Headache (Acute) Malnutrition (Acute) Hypoxia (Acute) Upper urinary tract infection (Acute) Obstructive uropathy (Acute) Palliative care patient (Acute) Blood loss anemia (Acute) Pain in gums (Acute) Leukocytosis, unspecified (Acute) Malignant neoplasm metastatic from bladder (Acute) Discharge planning issues (Acute) DVT prophylaxis (Acute) Hydronephrosis, left (Acute) Hematuria (Acute) Hypomagnesemia (Acute) Hyponatremia (Acute) Microcytic anemia (Chronic) Sepsis syndrome (Acute) Type 2 diabetes mellitus (Chronic) Bladder cancer (Chronic) Hyperlipidemia (Chronic 08/01/12) Essential hypertension (Chronic 01/30/13) Chronic obstructive lung disease (Chronic 01/31/13) Medical History (Updated 04/11/23 @ 12:16 by Arlyn Lees MD) Diverticulitis of colon (08/01/12) Acute pancreatitis (01/31/13) Acute appendicitis (01/31/13) Surgical History (Updated 03/30/23 @ 16:47 by Ho Broderick MD) H/O resection of small bowel twice for SBO Appendectomy Social History (Updated 03/28/23 @ 02:38 by Jonathon Henry) Smoking/Tobacco Use Status: Current every day Quit status: has quit before Smoking risk assessment performed?: Yes Alcohol Intake: current Alcohol Intake frequency: holidays/special occasions only Housing: house Time Spent with Patient Time Spent with Patient: 45-69 minutes Time was spent: preparing to see the patient(eg.review tests), obtaining and/or reviewing separately otained hiistory, ordering medications,tests, procedures, referring, communicating with other health director long term care, indepentently interpreting results, counseling the patient and care coordination
--- NOTE | 2023-04-11 10:34 | CMDISCH_ITS ---
Date of service: 04/11/23 Time of Service: 10:34 LACE Index Scoring Tool Questions: Length of Stay (in days): 14 or more Was the patient admitted via the E.D.?: Yes Comorbidities: Diabetes w/o Complication, Chronic Pulmonary Disease and Metastatic Solid Tumor E.D. Visits: 1 Answers: Total Score: 16 Risk of Readmission: High Risk Care Management Discharge Plan Reason for Hospitalization: sepsis Discharge Plan: Jesus will be transferred to [facility] for short term rehab prior to returning home. He will follow up with the facility providers and plan of care. Sae's daughter Patricia will transport him via private vehicle. Patient/Family Education Needs: Review of discharge instructions, activity, limitations, follow up plan, discuss Ask Me Three Services Needed at Discharge: [facility] Facility SDOH Health Related Social Needs: Health related social needs details Patient resides i [facility], Is in [place] living with his daughter while undergoing treatment for Bladder Cancer. Health related social needs details: Patient resides in [place], Is in [place] living with his daughter while undergoing treatment for Bladder Cancer.
[2023-04-11] MEDS: Bacitracin 1 PACKET TP (12:15)
[2023-04-11 12:31] VITALS: RESP 9
--- NOTE | 2023-04-11 13:02 | PT.INTREAT ---
Date of service: 04/11/23 Time of Service: 09:58 PT Notes Visit Reasons: Sepsis syndrome, Metastatic bladder cancer Inpatient Physical Therapy Treatment Note [facility] Date: 04/11/23 PRECAUTIONS: Fall, standard, activity as tolerated. SUBJECTIVE: Patient reports feeling much better today than he did yesterday. Reports feeling like a new man. States that the pain medication he received works, after medication, no pain at all! Before medication though.... it's not so good. OBJECTIVE: Supine in bed, agreeable to therapy. ? PAIN: none reported VITALS: ? Pre-Treatment: 94% on RA ? Post-Treatment: 93% on RA ? BED MOBILITY/TRANSFERS? Rolling L/R: independent Supine-sit: independent ? Sit-supine: independent ? Sit-stand: independent ? Stand-sit: independent ? Bed-Chair: SBA ? Chair-bed: SBA ? Therapeutic Exercises ([id number]): Direct one-on-one instruction in therapeutic exercises to develop strength, endurance, range of motion and flexibility. Ambulation ? Assistive Device: FWW? Weight bearing: full Assist: SBA, wheelchair follow, SaO2 monitoring? Distance:? 150 feet, 150 feet, 300 feet. ? Deviation: even stride length, heel-toe gait pattern. Patient maintains SaO2 above 90% on RA. Highest HR noted was 109 bpm. ? Provided skilled instruction in proper exercise performance Provided skilled manual cues to facilitate proper muscle recruitment and/or form. ASSESSMENT:? Patient tolerates therapy well, recovers in under 2 minutes. Patient reports being anxious about going to sub-acute rehab, although he recognizes that it is his best option. PLAN: Patient to discharge to SNF today. Patient would benefit from continued skilled physical therapy services to optimize strength and balance. TREATMENT CODE/TIME: 27 minutes beginning at 9:58
== END 2023-04-11 13:12 | disposition skilled nursing facility (03) | DRG 871 ==
LOC: ER 22:18 → ICU 23:45 → MS 03-28 20:51
PROVIDERS: Family Medicine; Internal Medicine; Admitting Provider Family Medicine; Emergency Provider Physician Assistant; PCP Nurse Practitioner Adult Health; Visit Provider Family Medicine
DX: A41.9 Sepsis, unspecified organism; R65.21 Severe sepsis with septic shock; Z68.1 Body mass index [BMI] 19.9 or less, adult; E87.1 Hypo-osmolality and hyponatremia; J44.1 Chronic obstructive pulmonary disease with (acute) exacerbation; C79.51 Secondary malignant neoplasm of bone; C77.8 Secondary and unspecified malignant neoplasm of lymph nodes of multiple regions; J44.0 Chronic obstructive pulmonary disease with (acute) lower respiratory infection; C78.01 Secondary malignant neoplasm of right lung; G93.49 Other encephalopathy; D62 Acute posthemorrhagic anemia; N13.6 Pyonephrosis; E46 Unspecified protein-calorie malnutrition; C67.9 Malignant neoplasm of bladder, unspecified; E83.42 Hypomagnesemia; D50.9 Iron deficiency anemia, unspecified; J43.8 Other emphysema; E78.2 Mixed hyperlipidemia; F17.210 Nicotine dependence, cigarettes, uncomplicated; R31.0 Gross hematuria; Z79.84 Long term (current) use of oral hypoglycemic drugs; Z79.82 Long term (current) use of aspirin; Z79.4 Long term (current) use of insulin; J20.9 Acute bronchitis, unspecified; I10 Essential (primary) hypertension; Z66 Do not resuscitate; D72.825 Bandemia; E11.649 Type 2 diabetes mellitus with hypoglycemia without coma; K08.89 Other specified disorders of teeth and supporting structures; B96.5 Pseudomonas (aeruginosa) (mallei) (pseudomallei) as the cause of diseases classified elsewhere; K59.00 Constipation, unspecified; G25.2 Other specified forms of tremor; Z93.6 Other artificial openings of urinary tract status; R09.02 Hypoxemia; R51.9 Headache, unspecified
CPT/HCPCS: 51701; 36410; 00123; 36415; 36416; 36430; 76770; 80048; 80053; 82550; 82805; 82947; 83690; 83935; 84145; 85027; 86850; 86900; 86901; 86920; 87040; 87077; 87449; 87641; 88185; 93005; 94618; 94640; 96365; 96366; 96367; 97110; 97140; 97162; 97530; 99285; J3490; 70487; 71045; 80202; 81003; 81015; 82565; 82607; 82728; 82746; 83036; 83540; 83605; 83735; 83880; 83930; 84300; 84484; 85014; 85018; 85025; 85610; 85730; 86140; 87070; 87086; 87186; 87205; 87581; 87899; 88184; 88189; 93010; 93306; 94664; 94667; 94668; 94760; 99223; 99232; 99233; 99239; A0420; A0425; A0428; J0692; J0696; J1170; J1815; J2270; J2405; J3370; J3475; J7512; J7613; J7620; P9016